=== PATIENT | female | born 1950 | race Caucasian/White ===

== ENCOUNTER 2016-10-14 21:57 | Inpatient (IN) | payer MEDICARE ==
--- NOTE | 2016-10-14 22:20 | ER Document Report ---
ED General - General Stated Complaint: DIFFICULTY BREATHING Time seen by provider: 22:05 Information source: Patient, Emergency Med Personnel TRAVEL OUTSIDE OF THE [place] IN LAST 30 DAYS: No - HPI Notes: Patient is a 66-year-old female smoker history of COPD and CHF presents to the emergency department with report of a 4 day history of difficulty breathing with minimal cough. She is not on home nebulizer treatments or oxygen and has never been intubated or admitted for previous episodes. The patient denies any chest pain or fever or productive cough. Prehospital care patient was found to have an O2 sat of 88% on room air in some respiratory distress. The patient was given DuoNeb treatments with IV Solu- Medrol and IV magnesium 2 g with CPAP and arrives alert and interactive with significant improvement. On my evaluation, the patient was immediately started up on BiPAP 12/6 with 28% FiO2 with oxygen saturation 99 and 100% and a respiratory rate of 22. Patient is alert and interactive on my questioning. 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 Past Medical History - Social History Smoking Status: Current Every Day Smoker Smoking Education Provided: Yes Frequency of alcohol use: None Drug Abuse: None Lives with: Family Family History: Reviewed & Not Pertinent Review of Systems - Review of Systems Notes: REVIEW OF SYSTEMS: CONSTITUTIONAL : Denies fever, chills, or sweats. Denies recent illness. EENT: Denies eye, ear, throat, or mouth pain or symptoms. Denies nasal or sinus congestion or discharge. Denies throat, tongue, or mouth swelling or difficulty swallowing. CARDIOVASCULAR: Denies chest pain. Denies palpitations or racing or irregular heart beat. Denies ankle edema. RESPIRATORY: Patient reports improvement in her wheezing and dyspnea currently. GASTROINTESTINAL: Denies abdominal pain or distention. Denies nausea, vomiting , or diarrhea. Denies blood in vomitus, stools, or per rectum. Denies black, tarry stools. Denies constipation. GENITOURINARY: Denies difficulty urinating, painful urination, burning, frequency, blood in urine, or discharge. FEMALE GENITOURINARY: Denies vaginal bleeding, heavy or abnormal periods, irregular periods. Denies vaginal discharge or odor. MUSCULOSKELETAL: Denies back or neck pain or stiffness. Denies joint pain or swelling. SKIN: Denies rash, lesions or sores. HEMATOLOGIC : Denies easy bruising or bleeding. LYMPHATIC: Denies swollen, enlarged glands. NEUROLOGICAL: Denies confusion or altered mental status. Denies passing out or loss of consciousness. Denies dizziness or lightheadedness. Denies headache. Denies weakness or paralysis or loss of use of either side. Denies problems with gait or speech. Denies sensory loss, numbness, or tingling. Denies seizures. PSYCHIATRIC: Denies anxiety or stress. Denies depression, suicidal ideation, or homicidal ideation. ALL OTHER SYSTEMS REVIEWED AND NEGATIVE. Dictation was performed using [employer] voice recognition software Physical Exam - Vital signs Vitals: Temp Pulse Resp BP Pulse Ox 97.9 F 110 H 28 H 112/41 L 100 10/14/16 22:15 10/14/16 22:15 10/14/16 22:15 10/14/16 22:15 10/14/16 22:15 - Notes Notes: PHYSICAL EXAMINATION: GENERAL: Well-appearing, well-nourished and in no acute distress. HEAD: Atraumatic, normocephalic. EYES: Pupils equal round and reactive to light, extraocular movements intact, conjunctiva are normal. ENT: Nares patent, oropharynx clear without exudates. Moist mucous membranes. NECK: Normal range of motion, supple without lymphadenopathy. No JVD. LUNGS: Breath sounds coarse, but no significant wheezes or rales. Note that the patient is already had nebulizer treatments and is on BiPAP on my evaluation. HEART: Regular rate and rhythm without murmurs ABDOMEN: Soft, nontender, nondistended abdomen. No guarding, no rebound. No masses appreciated. Female : deferred Musculoskeletal: Normal range of motion, no pitting or edema. No cyanosis. Negative Homans. No palpable cord. NEUROLOGICAL: Cranial nerves grossly intact. Normal speech, normal gait. Normal sensory, motor exams PSYCH: Normal mood, normal affect. SKIN: Warm, Dry, normal turgor, no rashes or lesions noted. Course - Re-evaluation Re-evalutation: 10/15/16 03:08 Chest x-ray was negative for pneumonia. There is no evidence for congestive heart failure or pneumothorax or clinical suggestion for pulmonary embolus. No significant electrolyte imbalance or anemia. Patient had good oxygen saturations on BiPAP, and she was transitioned to 2 L nasal cannula oxygen and maintained good oxygen saturations. When taken off of oxygen, her O2 sat went down to 90-92%. When the patient was ambulatory however, her O2 sat went to 87% and her pulse rate went up to 130, still in a paced rhythm. When the patient was placed back in bed at rest her O2 sat improved and she was placed back on oxygen. On 2 L nasal cannula oxygen, her O2 sats stabilized in the mid 90s and her blood gas showed no hypercarbia. Discussion was undertaken with Dr. Correa, and he agreed to admit the patient for further evaluation and management. I discussed with the patient and her family and they were in agreement with admission. Patient was warned that she most likely would need to go home with a home nebulizer machine and may need consisted home oxygen therapy given the progression of her COPD. 10/15/16 03:11 - Vital Signs Vital signs: Temp Pulse Resp BP Pulse Ox 97.9 F 110 H 34 H 100/61 93 10/14/16 22:15 10/14/16 22:15 10/14/16 22:15 10/15/16 01:00 10/15/16 01:01 - Laboratory Result Diagrams: 10/14/16 22:25 10/14/16 22:25 Laboratory results interpreted by me: 10/14/16 10/14/16 10/15/16 22:25 22:25 02:10 WBC 11.0 H Seg Neutrophils % 79.2 H Absolute Neutrophils 8.7 H ABG pO2 79.7 L ABG Total CO2 26.1 H Glucose 125 H Magnesium 2.7 H - EKG Interpretation by Me Additional EKG results interpreted by me: 10/14/16 23:11 EKG as interpreted by me showed atrial sensed ventricular paced rhythm rate 103. There is bilateral atrial abnormalities consistent with COPD. There is a nonspecific secondary interventricular conduction delay consistent with pacing. There is no gross evidence for acute CO or ischemia identified. There is LVH noted. There is no old EKG available for comparison. Critical Care Note - Critical Care Note Total time excluding time spent on procedures (mins): 51 Discharge - Discharge Clinical Impression: COPD with acute exacerbation, Hypoxia Condition: Stable Disposition: ADMITTED INPATIENT Admitting Provider: [facility] Admitted: Telemetry Referrals: LINETTE FELIPE MD [Primary Care Provider] - Follow up as needed
[2016-10-14 22:35] LABS: ABSOLUTE EOSINOPHILS # (AUTO) 0.1 10^3/uL (0.0-0.6); ABSOLUTE LYMPHOCYTES (AUTO) 1.5 10^3/uL (0.5-4.7); ABSOLUTE MONOCYTES (AUTO) 0.7 10^3/uL (0.1-1.4); ABSOLUTE NEUT (AUTO) 8.7 10^3/uL (1.7-8.2); BASOPHILS % (AUTO) 0.2 % (0-2); EOSINOPHILS % (AUTO) 0.5 % (0-6); HEMATOCRIT 43.6 % (36.0-47.0); HEMOGLOBIN 14.8 g/dL (12.0-15.5); HGB HCT DIFFERENCE 0.8; LYMPHOCYTES % (AUTO) 13.7 % (13-45); MEAN CORPUSCULAR HEMOGLOBIN 30.3 pg (27.0-33.4); MEAN CORPUSCULAR HGB CONC 33.9 g/dL (32.0-36.0); MEAN CORPUSCULAR VOLUME 89 fl (80-97); MONOCYTES % (AUTO) 6.4 % (3-13); RED BLOOD COUNT 4.88 10^6/uL (3.72-5.28); RED CELL DISTRIBUTION WIDTH 12.5 % (11.5-14.0); SEGMENTED NEUTROPHILS % (AUTO) 79.2 % (42-78)
[2016-10-14 22:47] LABS: ALANINE AMINOTRANSFERASE 24 U/L (9-52); ALBUMIN 4.6 g/dL (3.5-5.0); ALKALINE PHOSPHATASE 88 U/L (38-126); ANION GAP 13 (5-19); ASPARTATE AMINO TRANSFERASE 24 U/L (14-36); BILIRUBIN,DIRECT 0.1 mg/dL (0.0-0.4); BILIRUBIN,TOTAL 0.5 mg/dL (0.2-1.3); BLOOD UREA NITROGEN 17 mg/dL (7-20); CALCIUM 10.1 mg/dL (8.4-10.2); CARBON DIOXIDE 25 mmol/L (22-30); CHLORIDE 102 mmol/L (98-107); CREATININE RESULT 0.77 mg/dL (0.52-1.25); GLUCOSE 125 mg/dL (75-110); MAGNESIUM 2.7 mg/dL (1.6-2.3); POTASSIUM 3.8 mmol/L (3.6-5.0); SODIUM 140.1 mmol/L (137-145); TOTAL PROTEIN 7.8 g/dL (6.3-8.2)
[2016-10-14 23:01] LABS: TROPONIN I < 0.012 ng/mL
[2016-10-15] MEDS ORDERED: IPRATROPIUM/ALBUTEROL 0.5-2.5 MG/3 ML AMPUL NEB ONE (01:25)
[2016-10-15 02:23] LABS: ARTERIAL BLOOD BASE EXCESS -0.1 mmol/L; ARTERIAL BLOOD O2 SATURATION 95.7 % (94-98)
[2016-10-15] MEDS ORDERED: IPRATROPIUM/ALBUTEROL 0.5-2.5 MG/3 ML AMPUL NEB PRN ×2 (06:22→09:43)
[2016-10-15] MEDS ORDERED: METHYLPREDNISOLONE INJ 125 MG/2 ML SDV IV SCH (06:30)
[2016-10-15] MEDS ORDERED: ALBUTEROL SULFATE HFA (90 MCG/PUFF) 200 PUFF/8.5 GM MDI IH PRN (10:30)
[2016-10-15] MEDS ORDERED: FUROSEMIDE 20 MG TABLET PO ONE (11:00)
[2016-10-15] MEDS ORDERED: ASPIRIN 81 MG TABLET, ENT COATED PO ONE (11:30)
[2016-10-15] MEDS: METHYLPREDNISOLONE INJ 125 MG/2 ML SDV IV SCH ×2 (13:11→21:25)
[2016-10-15] MEDS: GABAPENTIN 300 MG CAPSULE PO SCH ×2 (13:11→21:26)
[2016-10-15] MEDS ORDERED: NORMAL SALINE 1000 ML 1,000 ML IV PRN (14:34)
[2016-10-15] MEDS: HYDROCODONE/ACETAMINOPHEN 5-325 MG TABLET PO PRN ×2 (16:04→21:55)
--- NOTE | 2016-10-15 17:44 | PDOC H&P ---
History of Present Illness Admission Date/PCP: 10/15/16 04:37 LINETTE FELIPE MD History of Present Illness: ZAY KNIGHT is a 66 year old female, a lifelong smoker, with very severe COPD, she could emergency room last night because of shortness of breath. In the emergency room she was evaluated the blood gas showed relative hypoxemia, she was treated in the emergency room with bronchodilators, steroid despite all these treatment patient remained very symptomatic and hospital admission was advised. I saw patient on the floor today she is cachectic and on auscultation of the chest that was global diminished air entry in both lung niño suggesting very severe disease, CT chest was ordered with contrast to assess the lung parenchyma. Patient prognosis is poor as long as she continues to smoke cigarettes, she was counseled multiple times on the need for complete smoking cessation. She is still smoking at one point but she went back again smoking, she knows the consequences of her actions will lead to . Past Medical History Cardiac Medical History: Reports: Congestive Heart Failure Pulmonary Medical History: Reports: Chronic Obstructive Pulmonary Disease (COPD) Psychiatric Medical History: Denies: Depression Social History Lives with: Family Smoking Status: Current Every Day Smoker Frequency of Alcohol Use: None Hx Recreational Drug Use: No Drugs: None Hx Prescription Drug Abuse: No Family History Family History: Reviewed & Not Pertinent Parental Family History Reviewed: Yes Children Family History Reviewed: Yes Sibling(s) Family History Reviewed.: Yes Medication/Allergy Home Medications: Albuterol Sulfate [Ventolin Hfa] 2 puff IH Q4HP PRN 10/15/16 Aspirin [Aspirin EC] 81 mg PO DAILY 10/15/16 Fluticasone/Salmeterol [Advair 250-50 Diskus 28 dose] 1 inh IH Q12 10/15/16 Furosemide [Lasix] 20 mg PO DAILY 10/15/16 Gabapentin [Neurontin] 600 mg PO TID 10/15/16 Magnesium Oxide [Magnesium] 800 mg PO DAILY 10/15/16 Multivits-Min/Iron/FA/Lutein [Centrum Silver Women Tablet] 1 each PO DAILY 10/15 Simvastatin [Zocor 80 mg Tablet] 80 mg PO QHS 10/15/16 Allergies/Adverse Reactions: No Known Allergies Allergy (Unverified 10/15/16 21:48) Review of Systems Constitutional: ABSENT: chills, fever(s), headache(s), weight gain, weight loss Eyes: ABSENT: visual disturbances Ears: ABSENT: hearing changes Cardiovascular: PRESENT: dyspnea on exertion Respiratory: PRESENT: cough, dyspnea Gastrointestinal: ABSENT: abdominal pain, constipation, diarrhea, hematemesis, hematochezia, nausea, vomiting Genitourinary: ABSENT: dysuria, hematuria Musculoskeletal: ABSENT: joint swelling Integumentary: ABSENT: rash, wounds Neurological: ABSENT: abnormal gait, abnormal speech, confusion, dizziness, focal weakness, syncope Psychiatric: ABSENT: anxiety, depression, homidical ideation, suicidal ideation Endocrine: ABSENT: cold intolerance, heat intolerance, menstrual abnormalities, polydipsia, polyuria Hematologic/Lymphatic: ABSENT: easy bleeding, easy bruising, lymphadenopathy Physical Exam Vital Signs: Temp Pulse Resp BP Pulse Ox 97.9 F 107 H 18 104/63 94 10/15/16 16:00 10/15/16 16:00 10/15/16 16:00 10/15/16 16:00 10/15/16 16:00 Intake & Output 10/14/16 10/15/16 10/16/16 06:59 06:59 06:59 Intake Total 5 Balance 5 General appearance: PRESENT: other - Patient looks cachectic, chronically ill looking in extremely poor health Head exam: PRESENT: atraumatic, normocephalic Ear exam: PRESENT: normal external ear exam Mouth exam: PRESENT: moist, tongue midline Neck exam: PRESENT: full ROM. ABSENT: carotid bruit, JVD, lymphadenopathy, thyromegaly Respiratory exam: PRESENT: decreased breath sounds Cardiovascular exam: PRESENT: irregular rhythm, RRR, +S1, +S2, tachycardia Pulses: PRESENT: normal dorsalis pedis pul, +2 pedal pulses bilateral Vascular exam: PRESENT: normal capillary refill GI/Abdominal exam: PRESENT: soft Rectal exam: PRESENT: deferred Neurological exam: PRESENT: alert, awake, oriented to person, oriented to place , oriented to time, oriented to situation, CN II-XII grossly intact Psychiatric exam: PRESENT: appropriate affect, normal mood Skin exam: PRESENT: dry, intact, warm. ABSENT: cyanosis, rash Results Impressions: Chest X-Ray 10/14/16 22:17 IMPRESSION: Obstructive lung disease. No acute consolidations are identified. Other findings as noted above Assessment & Plan - Diagnosis (1) Chronic obstructive pulmonary disease with acute exacerbation Is this a current diagnosis for this admission?: YesPlan: Patient is admitted to the hospital and she is started on IV Solu-Medrol, bronchodilators,
[2016-10-15] MEDS: FLUTICASONE/SALMETEROL DISKUS 250-50 MCG/DOSE IH SCH (21:24)
[2016-10-15] MEDS: SIMVASTATIN 40 MG TABLET PO SCH (21:24)
[2016-10-15] MEDS ORDERED: (PENDING PHARMACY ID) (Simvastatin [Zocor 80 Mg Tablet] 80 MG) PO SCH (22:00)
--- NOTE | 2016-10-15 22:09 | EKG REPORT ---
SEVERITY:- ABNORMAL ECG - ATRIAL-SENSED VENTRICULAR-PACED COMPLEXES BIATRIAL ABNORMALITIES NONSPECIFIC INTRAVENTRICULAR CONDUCTION DELAY CONSIDER LEFT VENTRICULAR HYPERTROPHY : Confirmed by: Karie Marx MD 15-Oct-2016 22:08:56
[2016-10-16] MEDS: METHYLPREDNISOLONE INJ 125 MG/2 ML SDV IV SCH ×3 (05:38→21:55)
[2016-10-16] MEDS: GABAPENTIN 300 MG CAPSULE PO SCH ×3 (05:43→21:55)
[2016-10-16] MEDS: HYDROCODONE/ACETAMINOPHEN 5-325 MG TABLET PO PRN ×3 (08:19→22:24)
[2016-10-16] MEDS: ASPIRIN 81 MG TABLET, ENT COATED PO SCH (09:13)
[2016-10-16] MEDS: MULTIVITAMIN TABLET PO SCH (09:13)
[2016-10-16] MEDS: MAGNESIUM OXIDE 400 MG TABLET PO SCH (09:13)
[2016-10-16] MEDS: FUROSEMIDE 20 MG TABLET PO SCH (09:13)
[2016-10-16] MEDS: FLUTICASONE/SALMETEROL DISKUS 250-50 MCG/DOSE IH SCH ×2 (09:13→21:55)
[2016-10-16] MEDS ORDERED: (PENDING PHARMACY ID) (Multivits-Min/Iron/Fa/Lutein [Centrum Silver Women Tablet] 1 EACH) PO SCH (10:00)
--- NOTE | 2016-10-16 17:59 | PDOC PROGRESS REPORT ---
Subjective Progress Note for:: 10/16/16 Subjective:: She was admitted yesterday because of acute COPD exacerbation, CT chest was done he shows severe emphysema Physical Exam Vital Signs: Temp Pulse Resp BP Pulse Ox 98 F 87 19 117/75 96 10/16/16 16:00 10/16/16 16:00 10/16/16 16:00 10/16/16 16:00 10/16/16 16:00 Intake & Output 10/15/16 10/16/16 10/17/16 06:59 06:59 06:59 Intake Total 5 2764 1347 Output Total 700 700 Balance 5 2 143 General appearance: PRESENT: no acute distress Eye exam: PRESENT: PERRLA Respiratory exam: PRESENT: decreased breath sounds Cardiovascular exam: PRESENT: +S1, +S2 Neurological exam: PRESENT: alert Results Impressions: Chest X-Ray 10/14/16 22:17 IMPRESSION: Obstructive lung disease. No acute consolidations are identified. Other findings as noted above Chest CT 10/15/16 00:00 IMPRESSION: Obstructive lung disease with extensive emphysematous changes. No acute changes. Other findings as noted above. Assessment & Plan - Diagnosis (1) Chronic obstructive pulmonary disease with acute exacerbation Is this a current diagnosis for this admission?: Yes (2) Protein-calorie undernutrition Is this a current diagnosis for this admission?: YesPlan: The etiology of the protein/calorie malnutrition is due to combination of inadequate intake, chronic obstructive lung disease
[2016-10-16] MEDS: SIMVASTATIN 40 MG TABLET PO SCH (21:55)
[2016-10-17] MEDS: GABAPENTIN 300 MG CAPSULE PO SCH ×2 (06:06→14:56)
[2016-10-17] MEDS: METHYLPREDNISOLONE INJ 125 MG/2 ML SDV IV SCH ×2 (06:06→14:50)
[2016-10-17] MEDS: HYDROCODONE/ACETAMINOPHEN 5-325 MG TABLET PO PRN ×2 (08:21→14:55)
[2016-10-17] MEDS: FLUTICASONE/SALMETEROL DISKUS 250-50 MCG/DOSE IH SCH (09:06)
[2016-10-17] MEDS: MULTIVITAMIN TABLET PO SCH (09:06)
[2016-10-17] MEDS: ASPIRIN 81 MG TABLET, ENT COATED PO SCH (09:06)
[2016-10-17] MEDS: MAGNESIUM OXIDE 400 MG TABLET PO SCH (09:06)
[2016-10-17] MEDS: FUROSEMIDE 20 MG TABLET PO SCH (09:06)
[2016-10-17 17:44] VITALS: BP 117/75
--- NOTE | 2016-10-17 18:05 | PDOC DISCHARGE SUMMARY ---
General - Admit/Disc Date/PCP Admission Date/Primary Care Provider: 10/15/16 04:37 LINETTE FELIPE MD Discharge Date: 10/17/16 - Discharge Diagnosis (1) Chronic obstructive pulmonary disease with acute exacerbation Is this a current diagnosis for this admission?: Yes (2) Protein-calorie undernutrition Is this a current diagnosis for this admission?: Yes (3) Nocturnal hypoxemia due to emphysema Is this a current diagnosis for this admission?: Yes - Additional Information Discharge Activity: Activity As Tolerated Home Medications: Albuterol Sulfate [Ventolin Hfa] 2 puff IH Q4HP PRN 10/15/16 Aspirin [Aspirin EC] 81 mg PO DAILY 10/15/16 Fluticasone/Salmeterol [Advair 250-50 Diskus 28 dose] 1 inh IH Q12 10/15/16 Furosemide [Lasix] 20 mg PO DAILY 10/15/16 Gabapentin [Neurontin] 600 mg PO TID 10/15/16 Magnesium Oxide [Magnesium] 800 mg PO DAILY 10/15/16 Multivits-Min/Iron/FA/Lutein [Centrum Silver Women Tablet] 1 each PO DAILY 10/15 Simvastatin [Zocor 80 mg Tablet] 80 mg PO QHS 10/15/16 Ipratropium/Albuterol Sulfate [Duoneb 3 ml Ampul] 3 ml NEB NOW #120 vial.neb 01/26 Nebulizer [Nebulizer Machine] 1 each ASDIR PRN #1 kit 10/17/16 Prednisone 20 mg PO DAILY #0 tablet 10/17/16 History of Present Illness History of Present Illness: ZAY KNIGHT is a 66 year old female, a lifelong smoker, with very severe COPD, she could emergency room last night because of shortness of breath. In the emergency room she was evaluated the blood gas showed relative hypoxemia, she was treated in the emergency room with bronchodilators, steroid despite all these treatment patient remained very symptomatic and hospital admission was advised. I saw patient on the floor today she is cachectic and on auscultation of the chest that was global diminished air entry in both lung niño suggesting very severe disease, CT chest was ordered with contrast to assess the lung parenchyma. Patient prognosis is poor as long as she continues to smoke cigarettes, she was counseled multiple times on the need for complete smoking cessation. She is still smoking at one point but she went back again smoking, she knows the consequences of her actions will lead to . Hospital Course Hospital Course: Patient was admitted because of acute COPD exacerbation, she was treated with intravenous Solu-Medrol, bronchodilators, and oxygen. On auscultation of the chest that was diminished air entry on both lung niño and she required oxygen therapy. There was associated hypoxemia due to COPD the plan is to discharge her home today on home oxygen. She was again counseled for prolonged. period of the need for complete smoking cessation, the only chance of survival for this patient is to stop smoking and this was particularly emphasized to her. She is severely underweight, she was evaluated for this underweight problems in the past outpatient this is probably related to the COPD, tobacco abuse Physical Exam Vital Signs: Temp Pulse Resp BP Pulse Ox 98.2 F 68 16 117/75 97 10/17/16 17:43 10/17/16 17:43 10/17/16 17:43 10/17/16 17:43 10/17/16 17:43 Intake & Output 10/16/16 10/17/16 10/18/16 06:59 06:59 06:59 Intake Total 2764 1897 Output Total 700 1250 Balance 2064 647 General appearance: PRESENT: no acute distress, well-developed, well-nourished Head exam: PRESENT: atraumatic, normocephalic Eye exam: PRESENT: conjunctiva pink, EOMI, PERRLA Ear exam: PRESENT: normal external ear exam Mouth exam: PRESENT: moist, tongue midline Neck exam: PRESENT: full ROM Respiratory exam: PRESENT: decreased breath sounds Cardiovascular exam: PRESENT: RRR, +S1, +S2 Pulses: PRESENT: normal dorsalis pedis pul, +2 pedal pulses bilateral Vascular exam: PRESENT: normal capillary refill GI/Abdominal exam: PRESENT: normal bowel sounds, soft Rectal exam: PRESENT: deferred Neurological exam: PRESENT: alert, awake, oriented to person, oriented to place , oriented to time, oriented to situation, CN II-XII grossly intact Psychiatric exam: PRESENT: appropriate affect, normal mood Skin exam: PRESENT: dry, intact, warm Results Impressions: Chest X-Ray 10/14/16 22:17 IMPRESSION: Obstructive lung disease. No acute consolidations are identified. Other findings as noted above Chest CT 10/15/16 00:00 IMPRESSION: Obstructive lung disease with extensive emphysematous changes. No acute changes. Other findings as noted above. Plan Discharge Plan: She is discharged home on home oxygen
== END 2016-10-17 18:10 | disposition home or self-care (01) | DRG 191 ==
LOC: ER 21:57 → EH 10-15 03:20 → UNDOADMIN 10-15 03:20 → EH 10-15 04:26 → 5 10-15 04:26 → EH 10-15 04:37 → 5 10-15 04:37
PROVIDERS: ADMIT Internal Medicine; ATTEND Internal Medicine
DX: J44.1 Chronic obstructive pulmonary disease with (acute) exacerbation (principal); I50.22 Chronic systolic (congestive) heart failure; E46 Unspecified protein-calorie malnutrition; Z68.1 Body mass index [BMI] 19.9 or less, adult; Z79.899 Other long term (current) drug therapy; F17.200 Nicotine dependence, unspecified, uncomplicated
CPT/HCPCS: 36415; 71010; 71260; 80053; 82803; 83735; 83880; 84484; 85025; 93005; 93010; 94640; 94660; 99291; J2930; J3490; J7620

== ENCOUNTER → 2017-01-29 | Outpatient (CLI) | payer MEDICARE ==
[2017-01-29 17:17] LABS: ALANINE AMINOTRANSFERASE 30 U/L (9-52); ALBUMIN 4.3 g/dL (3.5-5.0); ALKALINE PHOSPHATASE 87 U/L (38-126); ANION GAP 9 (5-19); ASPARTATE AMINO TRANSFERASE 24 U/L (14-36); BILIRUBIN,DIRECT 0.3 mg/dL (0.0-0.4); BILIRUBIN,TOTAL 0.4 mg/dL (0.2-1.3); BLOOD UREA NITROGEN 12 mg/dL (7-20); CALCIUM 9.4 mg/dL (8.4-10.2); CARBON DIOXIDE 31 mmol/L (22-30); CHLORIDE 99 mmol/L (98-107); CHOLESTEROL 160.39 mg/dL (0-200); CREATININE RESULT 0.76 mg/dL (0.52-1.25); Direct HDL 50 mg/dL (>40); GLUCOSE 110 mg/dL (75-110); POTASSIUM 4.4 mmol/L (3.6-5.0); TRIGLYCERIDES 130 mg/dL (<150)
[2017-01-29 17:28] LABS: DIRECT LDL 83 mg/dL (<100)
== END ==
LOC: OD 15:12
PROVIDERS: ATTEND Internal Medicine Cardiovascular Disease
DX: R06.02 Shortness of breath (principal); I10 Essential (primary) hypertension; E11.9 Type 2 diabetes mellitus without complications; E78.00 Pure hypercholesterolemia, unspecified; Z79.899 Other long term (current) drug therapy
CPT/HCPCS: 36415; 80048; 80061; 80076; 83036; 83880; 84443

== ENCOUNTER 2017-11-20 15:58 | Emergency (ER) | payer MEDICARE ==
[2017-11-20] MEDS ORDERED: ASPIRIN 81 MG TABLET, CHEWABLE PO ONE (16:04)
[2017-11-20] MEDS ORDERED: NORMAL SALINE 1000 ML 1,000 ML IV ONE (16:06)
[2017-11-20 16:30] LABS: ABSOLUTE MONOCYTES (AUTO) 0.7 10^3/uL (0.1-1.4); ABSOLUTE NEUT (AUTO) 6.9 10^3/uL (1.7-8.2); BASOPHILS % (AUTO) 0.4 % (0-2); EOSINOPHILS % (AUTO) 0.3 % (0-6); HEMATOCRIT 37.1 % (36.0-47.0); HEMOGLOBIN 12.4 g/dL (12.0-15.5); LYMPHOCYTES % (AUTO) 11.7 % (13-45); MEAN CORPUSCULAR HEMOGLOBIN 30.1 pg (27.0-33.4); MEAN CORPUSCULAR HGB CONC 33.5 g/dL (32.0-36.0); MEAN CORPUSCULAR VOLUME 90 fl (80-97); MONOCYTES % (AUTO) 8.1 % (3-13); PLATELET COUNT 260 10^3/uL (150-450); RED BLOOD COUNT 4.13 10^6/uL (3.72-5.28); RED CELL DISTRIBUTION WIDTH 12.9 % (11.5-14.0); SEGMENTED NEUTROPHILS % (AUTO) 79.5 % (42-78); TOTAL CELLS COUNTED % (AUTO) 100 %; WHITE BLOOD COUNT 8.7 10^3/uL (4.0-10.5)
[2017-11-20 16:42] LABS: PROTHROMBIN TIME 12.6 SEC (11.4-15.4)
[2017-11-20 16:54] LABS: ALANINE AMINOTRANSFERASE 21 U/L (9-52); ALBUMIN 4.2 g/dL (3.5-5.0); ALKALINE PHOSPHATASE 78 U/L (38-126); ANION GAP 9 (5-19); ASPARTATE AMINO TRANSFERASE 31 U/L (14-36); BILIRUBIN,DIRECT 0.3 mg/dL (0.0-0.4); BILIRUBIN,TOTAL 0.3 mg/dL (0.2-1.3); BLOOD UREA NITROGEN 13 mg/dL (7-20); CALCIUM 9.9 mg/dL (8.4-10.2); CARBON DIOXIDE 35 mmol/L (22-30); CHLORIDE 96 mmol/L (98-107); CREATINE KINASE 78 U/L (30-135); GLUCOSE 113 mg/dL (75-110); LIPASE 56.4 U/L (23-300); SODIUM 139.8 mmol/L (137-145); TOTAL PROTEIN 7.3 g/dL (6.3-8.2)
--- NOTE | 2017-11-20 17:01 | RADIOLOGY REPORT (SQ) ---
EXAM DESCRIPTION: CHEST SINGLE VIEW COMPLETED DATE/TIME: 11/20/2017 4:46 pm REASON FOR STUDY: Indication for study is not provided. COMPARISON: CT chest 2017. Radiographs 2017. NUMBER OF VIEWS: One view. TECHNIQUE: Single frontal radiographic view of the chest acquired. LIMITATIONS: External limiting monitor lead artifacts. FINDINGS: LUNGS AND PLEURA: Hyperinflated, COPD. Chronic appearance without acute infiltrate or leticia picious opacities suggested. MEDIASTINUM AND HILAR STRUCTURES: No masses. Contour normal. HEART AND VASCULAR STRUCTURES: Allowing for degree of inflation, cardiomegaly. No evidence of conges tive failure. BONES: No gross fracture or bone lesion. HARDWARE: Left transvenous pacer with grossly intact leads. OTHER: No other significant finding. IMPRESSION: COPD. Stable chest. No acute cardiopulmonary disease appreciated. TECHNICAL DOCUMENTATION: JOB ID: [id number] [employer]- All Rights Reserved Reading location - IP/workstation name: Unknown
[2017-11-20 17:03] LABS: CREATINE KINASE MB 5.26 ng/mL (<4.55)
[2017-11-20 17:08] LABS: TROPONIN I 0.714 ng/mL
[2017-11-20 17:17] LABS: FREE T4 (FREE THYROXINE) 1.48 ng/dL (0.78-2.19)
[2017-11-20 17:31] LABS: THYROID STIMULATING HORMONE 1.63 uIU/mL (0.47-4.68)
[2017-11-20] MEDS ORDERED: ENOXAPARIN SODIUM INJ 60 MG/0.6 ML DISP.SYRIN SUBCUT SCH (18:00)
--- NOTE | 2017-11-20 18:47 | EKG REPORT ---
SEVERITY:- ABNORMAL ECG - ATRIAL-SENSED VENTRICULAR-PACED RHYTHM : Confirmed by: Jose Ramon Chaney MD 20-Nov-2017 18:46:53
--- NOTE | 2017-11-20 18:48 | EKG REPORT ---
SEVERITY:- ABNORMAL ECG - SINUS TACHYCARDIA LEFT BUNDLE BRANCH BLOCK : Confirmed by: Jose Ramon Chaney MD 20-Nov-2017 18:47:21
--- NOTE | 2017-11-20 20:00 | ER Document Report ---
ED Cardiac - General Chief Complaint: Chest Pain Stated Complaint: CHEST PAIN Time Seen by Provider: 11/20/17 16:04 TRAVEL OUTSIDE OF THE [place] IN LAST 30 DAYS: No - HPI Patient complains to provider of: Chest pain Notes: Patient coming in for evaluation chest pain and AICD firing. Patient states that chest pain started just prior to her AICD firing. Patient states that AICD has fired approximately 19 times a day. Patient upon arrival is slightly tachycardic. Patient resting comfortably upon my evaluation with no complaints of chest pain. Patient denies any changes in her medications. Patient states that her pacemaker was placed in 2008 she is unaware of the reason why the pacemaker was placed. Denies any recent travel denies any fevers chills nausea vomiting. - Related Data Allergies/Adverse Reactions: codeine Allergy (Verified 11/20/17 16:24) Past Medical History - Social History Smoking Status: Unknown if Ever Smoked Family History: Reviewed & Not Pertinent Patient has suicidal ideation: No Patient has homicidal ideation: No - Past Medical History Cardiac Medical History: Reports: Hx Congestive Heart Failure Pulmonary Medical History: Reports: Hx COPD Renal/ Medical History: Denies: Hx Peritoneal Dialysis Psychiatric Medical History: Reports: Hx Depression Past Surgical History: Reports: Hx Cardiac Surgery - ICD - Immunizations Hx Diphtheria, Pertussis, Tetanus Vaccination: Yes Hx Pneumococcal Vaccination: 07/13/12 Review of Systems - Review of Systems Constitutional: No symptoms reported EENT: No symptoms reported Cardiovascular: Chest pain Respiratory: No symptoms reported Gastrointestinal: No symptoms reported Genitourinary: No symptoms reported Female Genitourinary: No symptoms reported Musculoskeletal: No symptoms reported Skin: No symptoms reported Hematologic/Lymphatic: No symptoms reported Neurological/Psychological: No symptoms reported -: Yes All other systems reviewed and negative Physical Exam - Vital signs Vitals: Pulse Ox 97 11/20/17 16:01 Interpretation: Tachycardic - General General appearance: Appears well, Alert - HEENT Head: Normocephalic, Atraumatic Eyes: Normal Pupils: PERRL - Respiratory Respiratory status: No respiratory distress Chest status: Nontender Breath sounds: Normal Chest palpation: Normal Notes: Pacemaker in the left upper chest - Cardiovascular Rhythm: Regular, Tachycardia Heart sounds: Normal auscultation Murmur: No - Abdominal Inspection: Normal Distension: No distension Bowel sounds: Normal Tenderness: Nontender Organomegaly: No organomegaly - Back Back: Normal, Nontender - Extremities General upper extremity: Normal inspection, Nontender, Normal color, Normal ROM , Normal temperature General lower extremity: Normal inspection, Nontender, Normal color, Normal ROM , Normal temperature, Normal weight bearing. No: Colleen's sign - Neurological Neuro grossly intact: Yes Cognition: Normal Orientation: AAOx4 [place] Coma Scale Eye Opening: Spontaneous Rylie Coma Scale Verbal: Oriented Rylie Coma Scale Motor: Obeys Commands [place] Coma Scale Total: 15 Speech: Normal Motor strength normal: LUE, RUE, LLE, RLE Sensory: Normal - Psychological Associated symptoms: Normal affect, Normal mood - Skin Skin Temperature: Warm Skin Moisture: Dry Skin Color: Normal Course - Re-evaluation Re-evalutation: 11/20/17 20:00 Patient coming in today for evaluation of firing of her AICD. Patient states she was having some chest pain prior to firing of AICD states he is fired approximately 20 times. Upon initial evaluation patient was tachycardic like to be and more or less an SVT however with just gentle fluids patient's heart rate has improved to normal sinus rhythm. Patient remained chest pain-free during her stay here in ER. We did interrogate the patient's pacemaker which did show that the AICD did administer his treatment approximately 11-12 times all the times were marked for VT. Looks like patient has been nonsustained VT. I did review the patient's medications that she brought here does not show any antiarrhythmics. Otherwise patient is a very poor historian. Patient has been resting comfortably I did discuss case with the cardiology team at [facility] Dr Calderon This is a patient in transfer is that we [place] [facility] with your physiology and patient does have an elevation in her troponin. At this time my suspicion is more likely due to the multiple firing of her AICD and not cardiac ischemia however I am concerned as the patient states she does have pain priorTo the firing of her AICD. We will give the patient a dose of Lovenox to need to trend her troponins otherwise patient stable for transfer - Vital Signs Vital signs: Temp Pulse Resp BP Pulse Ox 98.1 F 20 100/59 L 100 11/20/17 20:46 11/20/17 20:45 11/20/17 20:46 11/20/17 20:46 - Laboratory Result Diagrams: 11/20/17 16:15 11/20/17 16:15 Laboratory results interpreted by me: 11/20/17 11/20/17 11/20/17 16:15 16:15 16:15 Seg Neutrophils % 79.5 H Lymphocytes % 11.7 L Chloride 96 L Carbon Dioxide 35 H Glucose 113 H CK-MB (CK-2) 5.26 H Critical Care Note - Critical Care Note Total time excluding time spent on procedures (mins): 50 Comments: Multiple evaluation patient with multiple times of AICD firing on the field confirmed with pacemaker interrogation slightly elevation in troponin. Time spent also discussed with transferring facility. Discharge - Discharge Clinical Impression: AICD firing, Nonsustained ventricular tachycardia, COPD, Elevated troponin Condition: Good Disposition: [facility] Admitting Provider: [facility] Referrals: LINETTE FELIPE MD [Primary Care Provider] - Follow up as needed
[2017-11-20 20:56] VITALS: BP 100/59
== END 2017-11-20 21:15 | disposition short-term general hospital (02) ==
LOC: ER 15:58
DX: I47.2 Ventricular tachycardia (principal); R07.9 Chest pain, unspecified; Z95.810 Presence of automatic (implantable) cardiac defibrillator; R74.8 Abnormal levels of other serum enzymes; J44.9 Chronic obstructive pulmonary disease, unspecified
CPT/HCPCS: 93005; 99291; 96372; 36415; 84439; 82553; 82550; 83690; 84443; 85025; 85610; 80053; 84484; 71045; 93010; J1650

== ENCOUNTER 2018-07-13 22:00 | Emergency (ER) | payer MEDICARE ==
[2018-07-13] MEDS ORDERED: ALBUTEROL SULFATE 0.083% NEB 2.5 MG/3 ML AMPUL NEB ONE (22:17)
[2018-07-13 22:40] LABS: VENOUS BLOOD BASE EXCESS 2.7 mmol/L; VENOUS BLOOD HCO3 30.7 mmol/L (20-32); VENOUS BLOOD PH 7.3 (7.30-7.42)
--- NOTE | 2018-07-13 22:47 | ER Document Report ---
ED General - General Stated Complaint: DIFFICULTY BREATHING Time Seen by Provider: 07/13/18 22:04 Notes: Patient is a 67-year-old female presents with complaint of difficulty breathing. Patient on a month history of difficulty breathing tonight. She states she is otherwise been doing well the last couple days. She has a history of COPD. She still smokes. She wears between 1-2 L of oxygen per nasal cannula at home. Paramedics said she was in respiratory distress and all wheezing. They gave her Solu-Medrol as well as 2 DuoNeb treatments. This helped significantly. She denies any fevers at home. No vomiting. No chest pain. She has been intubated on a ventilator in the past. Her primary care doctor is Dr. Felipe. She says she is feeling improvement after receiving the breathing treatments. TRAVEL OUTSIDE OF THE [place] IN LAST 30 DAYS: No - Related Data Allergies/Adverse Reactions: codeine Allergy (Verified 11/20/17 16:24) Past Medical History - Social History Smoking Status: Current Every Day Smoker Frequency of alcohol use: None Drug Abuse: None Family History: Reviewed & Not Pertinent - Past Medical History Cardiac Medical History: Reports: Hx Congestive Heart Failure Pulmonary Medical History: Reports: Hx COPD Renal/ Medical History: Denies: Hx Peritoneal Dialysis Psychiatric Medical History: Reports: Hx Depression Past Surgical History: Reports: Hx Cardiac Surgery - ICD - Immunizations Hx Diphtheria, Pertussis, Tetanus Vaccination: Yes Hx Pneumococcal Vaccination: 07/13/12 Review of Systems - Review of Systems Notes: My Normal Review Basic REVIEW OF SYSTEMS: CONSTITUTIONAL : Denies fever, chills, or sweats. Denies recent illness. EENT: Denies eye, ear, throat, or mouth pain or symptoms. Denies nasal or sinus congestion. CARDIOVASCULAR: Denies chest pain. RESPIRATORY: Difficulty breathing GASTROINTESTINAL: Denies abdominal pain. Denies nausea, vomiting, or diarrhea. MUSCULOSKELETAL: Denies neck or back pain or joint pain or swelling. SKIN: Denies rash or skin lesions. NEUROLOGICAL: Denies altered mental status or loss of consciousness. Denies headache. Denies weakness or paralysis or loss of use of either side. Denies problems with gait or speech. Denies sensory or motor loss. ALL OTHER SYSTEMS REVIEWED AND NEGATIVE. Physical Exam - Vital signs Vitals: Temp Resp Pulse Ox 97.5 F 13 100 07/13/18 22:23 07/13/18 22:23 07/13/18 22:23 - Notes Notes: General Appearance: Well nourished, alert, cooperative, no acute distress, no obvious discomfort. Mucousy cough on exam. Vitals: reviewed, See vital signs table. Head: no swelling or tenderness to the head Eyes: PERRL, EOMI, Conjuctiva clear Mouth: No decreasd moisture Throat: No tonsillar inflammation, No airway obstruction, No lymphadenopathy Neck: Supple, no neck tenderness, No thyromegaly Lungs: No wheezing, No rales, scattered rhonci, No accessory muscle use, fair air exchange bilaterally. Heart: Normal rate, Regular rythm, No murmur, no rub Abdomen: Normal BS, soft, No rigidity, No abdominal tenderness, No guarding, no rebound, no abdominal masses, no organomegaly Extremities: strength 5/5 in all extremities, good pulses in all extremities, no swelling or tenderness in the extremities, no edema. Skin: warm, dry, appropriate color, no rash. Very dry skin on lower extremities which patient says is chronic. Neuro: speech clear, oriented x 3, normal affect, responds appropriately to questions. Course - Re-evaluation Re-evalutation: 07/13/18 23:54 On reevaluation patient is feeling much improved. She says she feels back to her baseline. She just finished her last breathing treatment. I will reevaluate her in approximately a hour to make sure that her breathing is staying normalized. She is in no distress. Her pulse ox is 98% on her 2 L of nasal cannula oxygen. 07/14/18 01:18 On reevaluation patient continues look well and says she feels well. She has no increased work of breathing. Her oxygen saturation is 99% on HER-2 liters of nasal cannula. Lung niño are clear without any wheezing. She says that she feels back to her baseline. Patient will be discharged home but is strongly encouraged to return to ER if she has recurrent difficulty breathing or wheezing not responding to inhaler. Patient agrees with plan and will be discharged home. Dictation of this chart was performed using voice recognition software; therefo re, there may be some unintended grammatical errors. - Vital Signs Vital signs: Temp Pulse Resp BP Pulse Ox 97.5 F 27 H 110/47 L 99 07/13/18 22:23 07/14/18 00:01 07/14/18 00:00 07/14/18 00:01 - Laboratory Result Diagrams: 07/13/18 22:30 07/13/18 22:30 Laboratory results interpreted by me: 07/13/18 07/13/18 07/13/18 22:30 22:30 22:30 WBC 12.0 H Seg Neutrophils % 81.8 H Lymphocytes % 10.9 L Absolute Neutrophils 9.8 H VBG pCO2 64.0 H Carbon Dioxide 31 H Glucose 139 H - EKG Interpretation by Me Additional EKG results interpreted by me: 07/13/18 22:46 EKG is reviewed and interpreted by me. EKG shows atrially paced rhythm with a rate of 107 bpm. Patient has some ST segment elevation in leads V3 but this is unchanged comparison to her old EKG from November 20, 2017. No new reciprocal depression. No ST segment changes that are any different from her previous EKG. AR interval is within normal range. QRS duration and QT intervals are prolonged. Discharge - Discharge Clinical Impression: COPD with acute exacerbation Condition: Good Disposition: HOME, SELF-CARE Additional Instructions: Please use your nebulizer treatments at home as prescribed. Please take the prednisone as prescribed. Please return to the ER if you have recurrent difficulty breathing not responding to your nebulizer treatment. Please try to stop smoking. Please follow-up with your doctor in 2-3 days for reevaluation. Prescriptions: Prednisone [Deltasone 20 mg Tablet] 3 tab PO DAILY 4 Days tablet Referrals: LNIETTE FELIPE MD [Primary Care Provider] - 07/16/18
[2018-07-13 22:48] LABS: ABSOLUTE EOSINOPHILS # (AUTO) 0.1 10^3/uL (0.0-0.6); ABSOLUTE LYMPHOCYTES (AUTO) 1.3 10^3/uL (0.5-4.7); ABSOLUTE MONOCYTES (AUTO) 0.8 10^3/uL (0.1-1.4); ABSOLUTE NEUT (AUTO) 9.8 10^3/uL (1.7-8.2); BASOPHILS % (AUTO) 0.3 % (0-2); EOSINOPHILS % (AUTO) 0.4 % (0-6); HEMATOCRIT 37.9 % (36.0-47.0); HEMOGLOBIN 12.4 g/dL (12.0-15.5); LYMPHOCYTES % (AUTO) 10.9 % (13-45); MEAN CORPUSCULAR HGB CONC 32.7 g/dL (32.0-36.0); MEAN CORPUSCULAR VOLUME 89 fl (80-97); MONOCYTES % (AUTO) 6.6 % (3-13); PLATELET COUNT 240 10^3/uL (150-450); RED BLOOD COUNT 4.28 10^6/uL (3.72-5.28); RED CELL DISTRIBUTION WIDTH 13.2 % (11.5-14.0); SEGMENTED NEUTROPHILS % (AUTO) 81.8 % (42-78); TOTAL CELLS COUNTED % (AUTO) 100 %
--- NOTE | 2018-07-13 22:58 | RADIOLOGY REPORT (SQ) ---
EXAM DESCRIPTION: XR CHEST 1 VIEW COMPLETED DATE/TME: 07/13/2018 22:17 CLINICAL HISTORY: 67 years Female, dyspnea COMPARISON:11/20/2017 NUMBER OF VIEWS/TECHNIQUE: 1/AP FINDINGS: Increased emphysematous lung volume, clear parenchyma, normal cardiac silhouette, and intact bony thorax. Left cardiac stimulator with leads. IMPRESSION: No acute cardiopulmonary findings.
[2018-07-13 23:32] LABS: ANION GAP 10 (5-19); BLOOD UREA NITROGEN 17 mg/dL (7-20); CALCIUM 9.3 mg/dL (8.4-10.2); CARBON DIOXIDE 31 mmol/L (22-30); CHLORIDE 98 mmol/L (98-107); GLUCOSE 139 mg/dL (75-110); POTASSIUM 4.3 mmol/L (3.6-5.0); SODIUM 138.7 mmol/L (137-145)
[2018-07-14 06:53] VITALS: BP 114/57
--- NOTE | 2018-07-14 17:21 | EKG REPORT ---
SEVERITY:- ABNORMAL ECG - ATRIAL-SENSED VENTRICULAR-PACED RHYTHM : Confirmed by: Karie Marx MD 14-Jul-2018 17:20:18
== END 2018-07-14 06:53 | disposition home or self-care (01) ==
LOC: ER 22:00
DX: J44.1 Chronic obstructive pulmonary disease with (acute) exacerbation (principal); Z99.81 Dependence on supplemental oxygen; F17.200 Nicotine dependence, unspecified, uncomplicated; Z88.5 Allergy status to narcotic agent; Z95.810 Presence of automatic (implantable) cardiac defibrillator
CPT/HCPCS: 93005; 94640; 99285; 36415; 85025; 80048; 82803; 71045; 93010; A9270

== ENCOUNTER 2018-08-07 15:42 | Inpatient (IN) | payer MEDICARE ==
[2018-08-07] MEDS ORDERED: AZITHROMYCIN INJ 500 MG VIAL IV ONE (15:45)
[2018-08-07] MEDS ORDERED: CEFTRIAXONE RTU 1 GM/D5W 50 ML IV ONE (15:45)
[2018-08-07] MEDS ORDERED: NORMAL SALINE 1000 ML 1,000 ML IV ONE (15:47)
[2018-08-07 16:19] LABS: ABSOLUTE LYMPHOCYTES (AUTO) 1.5 10^3/uL (0.5-4.7); ABSOLUTE MONOCYTES (AUTO) 0.7 10^3/uL (0.1-1.4); ABSOLUTE NEUT (AUTO) 5.3 10^3/uL (1.7-8.2); BASOPHILS % (AUTO) 0.5 % (0-2); EOSINOPHILS % (AUTO) 0.4 % (0-6); HEMATOCRIT 37.8 % (36.0-47.0); HEMOGLOBIN 12.4 g/dL (12.0-15.5); LYMPHOCYTES % (AUTO) 19.9 % (13-45); MEAN CORPUSCULAR HEMOGLOBIN 28.6 pg (27.0-33.4); MEAN CORPUSCULAR HGB CONC 32.9 g/dL (32.0-36.0); MEAN CORPUSCULAR VOLUME 87 fl (80-97); MONOCYTES % (AUTO) 9.7 % (3-13); PLATELET COUNT 238 10^3/uL (150-450); RED BLOOD COUNT 4.34 10^6/uL (3.72-5.28); SEGMENTED NEUTROPHILS % (AUTO) 69.5 % (42-78); TOTAL CELLS COUNTED % (AUTO) 100 %; WHITE BLOOD COUNT 7.6 10^3/uL (4.0-10.5)
[2018-08-07 16:26] LABS: ARTERIAL BLOOD H2CO3 1.58 mmol/L (1.05-1.35); ARTERIAL BLOOD HCO3 27.6 mmol/L (20-24); ARTERIAL BLOOD O2 SATURATION 99.6 % (94-98); ARTERIAL BLOOD PCO2 52.4 mmHg (35-45); ARTERIAL BLOOD PH 7.34 (7.35-7.45); ARTERIAL BLOOD PO2 295.1 mmHg (80-100); ARTERIAL BLOOD TOTAL CO2 29.2 mmol/L (21-25)
[2018-08-07 16:27] LABS: ARTERIAL BLOOD FIO2 60%
--- NOTE | 2018-08-07 16:28 | ER Document Report ---
ED Respiratory Problem - General Chief Complaint: Breathing Difficulty Stated Complaint: SHORT OF BREATH Time Seen by Provider: 08/07/18 15:44 Primary Care Provider: LINETTE FELIPE MD [Primary Care Provider] - Follow up as needed Information source: Patient, Emergency Med Personnel Notes: 68-year-old female with past medical history as recorded including COPD with intubations in the past who presents today with the onset yesterday of cough, and shortness of breath. EMS states that the oxygen saturation on arrival was 60%. They provided to duo nebulizers as well as place the patient on BiPAP with Solu-Medrol injection. Patient started to have some relief. Patient denies any chest pain, leg swelling, fevers, or vomiting. Patient does have a pacemaker and believes during the nebulizer treatments the pacemaker may "have fired". TRAVEL OUTSIDE OF THE [place] IN LAST 30 DAYS: No - HPI Patient complains to provider of: Short of breath Onset: Yesterday Duration: Better Quality of pain: No pain Severity: Severe Pain Level: Denies Context: Other - See above Short of Breath: Severe Cough: Nonproductive Sputum amount: Scant Associated symptoms: Other - Related Data Allergies/Adverse Reactions: codeine Allergy (Verified 11/20/17 16:24) Past Medical History - Social History Smoking Status: Former Smoker Chew tobacco use (# tins/day): No Drug Abuse: None Family History: Reviewed & Not Pertinent Patient has suicidal ideation: No Patient has homicidal ideation: No - Past Medical History Cardiac Medical History: Reports: Hx Atrial Fibrillation, Hx Congestive Heart Failure, Hx Hypertension Pulmonary Medical History: Reports: Hx COPD Renal/ Medical History: Denies: Hx Peritoneal Dialysis Psychiatric Medical History: Reports: Hx Depression Past Surgical History: Reports: Hx Cardiac Surgery - ICD - Immunizations Hx Diphtheria, Pertussis, Tetanus Vaccination: Yes Hx Pneumococcal Vaccination: 07/13/12 Review of Systems - Review of Systems Constitutional: denies: Fever EENT: Nose congestion. denies: Eye discharge, Nose discharge Cardiovascular: Heart racing. denies: Chest pain Respiratory: Short of breath, Wheezing. denies: Hemoptysis Gastrointestinal: denies: Vomiting Genitourinary: denies: Dysuria Musculoskeletal: denies: Leg swelling Skin: Other - no hives. denies: Rash Neurological/Psychological: Other - no slurred speech -: Yes All other systems reviewed and negative Physical Exam - Vital signs Vitals: Resp Pulse Ox 26 H 100 08/07/18 16:30 08/07/18 16:30 Notes: Reviewed vital signs and nursing note as charted by RN CONSTITUTIONAL: Alert in obvious respiratory distress HEAD: Normocephalic; atraumatic EYES: PERRL; Conjunctivae clear, sclerae non-icteric ENT: Normal nose; no rhinorrhea; moist mucous membranes; pharynx without lesions noted NECK: Supple without meningismus; non-tender CARD: Tachycardic and regular; no murmurs; symmetric distal pulses RESP: Patient has obvious tachypnea with retractions. Wheezing bilateral without any obvious rhonchi or rales ABD/GI: Normal bowel sounds; non-distended; soft, non-tender; no palpable organomegaly or masses BACK: The back appears normal and is non-tender to palpation EXT: Normal ROM in all joints; non-tender to palpation; no edema SKIN: No acute lesions noted NEURO: CN 2-12 intact; 5/5 bilateral upper and lower extremity strength with sensation intact to light touch PSYCH: The patient's mood and manner are appropriate. Grooming and personal hygiene are appropriate Course - Re-evaluation Re-evalutation: Given the history and physical examination we did place the patient on a continuous albuterol nebulizer on a BiPAP machine. Patient is slightly tachyca rdic. I will provide a liter of fluid as well as broad-spectrum antibiotics and reassess. 08/07/18 16:32 Patient's breathing is much improved. She is able to speak in sentences. Vital signs have stabilized. X-ray of the chest as recorded. EKG shows a heart rate of 124, ventricular paced rhythm, some slightly peaked T waves V3 and V4 08/07/18 16:34 EKG as recorded. We have ordered interrogation of the pacemaker/defibrillator 08/07/18 16:45 ABG has recorded. X-ray shows no obvious infiltrate. Patient will be admitted for further evaluation. I do believe pulmonary embolism and ACS to be extremely unlikely. - Vital Signs Vital signs: Temp Pulse Resp BP Pulse Ox 26 H 100 08/07/18 16:30 08/07/18 16:30 - Laboratory Result Diagrams: 08/07/18 15:45 08/07/18 15:45 Laboratory results interpreted by me: 08/07/18 08/07/18 15:45 16:05 Carbonic Acid 1.58 H ABG pH 7.34 L ABG pCO2 52.4 H ABG pO2 295.1 H ABG HCO3 27.6 H ABG Total CO2 29.2 H ABG O2 Saturation 99.6 H Carbon Dioxide 33 H Glucose 112 H Critical Care Note - Critical Care Note Total time excluding time spent on procedures (mins): 40 Discharge - Discharge Clinical Impression: Acute respiratory distress Condition: Fair Disposition: ADMITTED INPATIENT Admitting Provider: Hospitalist Unit Admitted: IMCU Referrals: LINETTE FELIPE MD [Primary Care Provider] - Follow up as needed
[2018-08-07 16:32] LABS: ALANINE AMINOTRANSFERASE 22 U/L (9-52); ALBUMIN 4.5 g/dL (3.5-5.0); ALKALINE PHOSPHATASE 92 U/L (38-126); ANION GAP 6 (5-19); ASPARTATE AMINO TRANSFERASE 28 U/L (14-36); BILIRUBIN,DIRECT 0.3 mg/dL (0.0-0.4); BILIRUBIN,TOTAL 0.5 mg/dL (0.2-1.3); BLOOD UREA NITROGEN 20 mg/dL (7-20); CALCIUM 9.6 mg/dL (8.4-10.2); CARBON DIOXIDE 33 mmol/L (22-30); CHLORIDE 101 mmol/L (98-107); GLUCOSE 112 mg/dL (75-110); POTASSIUM 4.9 mmol/L (3.6-5.0); SODIUM 139.7 mmol/L (137-145); TOTAL PROTEIN 7.4 g/dL (6.3-8.2)
--- NOTE | 2018-08-07 16:44 | RADIOLOGY REPORT (SQ) ---
EXAM DESCRIPTION: CHEST SINGLE VIEW COMPLETED DATE/TIME: 08/07/2018 4:00 pm REASON FOR STUDY: SOB COMPARISON: Chest x-ray 07/13/2018. EXAM PARAMETERS: NUMBER OF VIEWS: One view. TECHNIQUE: 2 frontal radiographic views of the chest acquired. RADIATION DOSE: NA LIMITATIONS: None. FINDINGS: LUNGS AND PLEURA: The lungs are hyperlucent, consistent with emphysematous changes. No co nsolidation, pleural effusion or pneumothorax. MEDIASTINUM AND HILAR STRUCTURES: No masses. Contour normal. HEART AND VASCULAR STRUCTURES: Heart normal in size. No overt vascular congestion. BONES: No acute findings. HARDWARE: There is a left-sided pacemaker. IMPRESSION: Emphysema. Otherwise, no acute radiographic finding in the chest. TECHNICAL DOCUMENTATION: JOB ID: [id number] [employer]- All Rights Reserved Reading location - IP/workstation name: [email or web address]
[2018-08-07 18:13] LABS: A TYPE INFLUENZA AG NEGATIVE (NEGATIVE); B INFLUENZA AG NEGATIVE (NEGATIVE)
[2018-08-07] MEDS ORDERED: METHYLPREDNISOLONE INJ 125 MG/2 ML SDV IV ONE (19:15)
[2018-08-07 19:42] LABS: INTERNATIONAL RATION (INR) 0.94; PROTHROMBIN TIME 13.1 SEC (11.4-15.4)
[2018-08-07 19:43] LABS: PARTIAL THROMBOPLASTIN TIME 31.3 SEC (23.5-35.8)
[2018-08-07 19:53] LABS: LIPASE 50.3 U/L (23-300)
[2018-08-07 20:06] LABS: CREATINE KINASE MB 1.03 ng/mL (<4.55)
[2018-08-07 20:11] LABS: FREE T4 (FREE THYROXINE) 1.2 ng/dL (0.78-2.19)
[2018-08-07] MEDS: IPRATROPIUM/ALBUTEROL 0.5-2.5 MG/3 ML AMPUL NEB SCH ×2 (20:17→22:58)
[2018-08-07 20:25] LABS: THYROID STIMULATING HORMONE 0.35 uIU/mL (0.47-4.68)
[2018-08-07 20:42] LABS: TROPONIN I < 0.012 ng/mL
--- NOTE | 2018-08-07 21:39 | EKG REPORT ---
SEVERITY:- ABNORMAL ECG - VENTRICULAR-PACED RHYTHM : Confirmed by: Karie Marx MD 07-Aug-2018 21:38:40
[2018-08-08] MEDS: IPRATROPIUM/ALBUTEROL 0.5-2.5 MG/3 ML AMPUL NEB SCH ×9 (00:33→20:53)
[2018-08-08 02:03] LABS: CREATINE KINASE MB 1.01 ng/mL (<4.55)
[2018-08-08 02:05] LABS: TROPONIN I < 0.012 ng/mL
[2018-08-08] MEDS: METHYLPREDNISOLONE INJ 125 MG/2 ML SDV IV SCH ×3 (02:56→18:29)
[2018-08-08 06:24] LABS: ARTERIAL BLOOD BASE EXCESS 1.3 mmol/L; ARTERIAL BLOOD H2CO3 1.53 mmol/L (1.05-1.35); ARTERIAL BLOOD HCO3 27.5 mmol/L (20-24); ARTERIAL BLOOD O2 SATURATION 98.6 % (94-98); ARTERIAL BLOOD PCO2 50.9 mmHg (35-45); ARTERIAL BLOOD PH 7.35 (7.35-7.45); ARTERIAL BLOOD TOTAL CO2 29.1 mmol/L (21-25)
[2018-08-08 06:25] LABS: ARTERIAL BLOOD FIO2 2LNC
[2018-08-08 07:10] LABS: ABSOLUTE LYMPHOCYTES (AUTO) 0.3 10^3/uL (0.5-4.7); ABSOLUTE NEUT (AUTO) 2.4 10^3/uL (1.7-8.2); BASOPHILS % (AUTO) 0.1 % (0-2); HEMATOCRIT 31.5 % (36.0-47.0); HEMOGLOBIN 10.4 g/dL (12.0-15.5); MEAN CORPUSCULAR HEMOGLOBIN 28.4 pg (27.0-33.4); MEAN CORPUSCULAR HGB CONC 32.9 g/dL (32.0-36.0); MEAN CORPUSCULAR VOLUME 86 fl (80-97); MONOCYTES % (AUTO) 1.7 % (3-13); PLATELET COUNT 185 10^3/uL (150-450); RED BLOOD COUNT 3.66 10^6/uL (3.72-5.28); SEGMENTED NEUTROPHILS % (AUTO) 88.2 % (42-78); TOTAL CELLS COUNTED % (AUTO) 100 %
[2018-08-08 07:13] LABS: WHITE BLOOD COUNT 2.7 10^3/uL (4.0-10.5)
[2018-08-08 07:22] LABS: ALANINE AMINOTRANSFERASE 22 U/L (9-52); ALBUMIN 3.7 g/dL (3.5-5.0); ALKALINE PHOSPHATASE 68 U/L (38-126); ANION GAP 6 (5-19); ASPARTATE AMINO TRANSFERASE 20 U/L (14-36); BILIRUBIN,DIRECT 0.2 mg/dL (0.0-0.4); BILIRUBIN,TOTAL 0.3 mg/dL (0.2-1.3); BLOOD UREA NITROGEN 26 mg/dL (7-20); CARBON DIOXIDE 31 mmol/L (22-30); CHLORIDE 102 mmol/L (98-107); CHOLESTEROL 156.35 mg/dL (0-200); GLUCOSE 149 mg/dL (75-110); POTASSIUM 4.4 mmol/L (3.6-5.0); SODIUM 138.9 mmol/L (137-145); TOTAL PROTEIN 6.2 g/dL (6.3-8.2); TRIGLYCERIDES 55 mg/dL (<150)
[2018-08-08 07:33] LABS: DIRECT LDL 108 mg/dL (<100)
[2018-08-08 07:34] LABS: CREATINE KINASE MB 1.03 ng/mL (<4.55)
[2018-08-08 07:38] LABS: TROPONIN I < 0.012 ng/mL
[2018-08-08] MEDS: ENOXAPARIN SODIUM INJ 40 MG/0.4 ML DISP.SYRIN SUBCUT SCH (09:31)
[2018-08-08] MEDS ORDERED: ALBUTEROL SULFATE 0.083% NEB 2.5 MG/3 ML AMPUL NEB PRN (11:32)
--- NOTE | 2018-08-08 11:37 | PDOC H&P ---
History of Present Illness Admission Date/PCP: 08/07/18 17:08 LINETTE FELIPE MD History of Present Illness: ZAY KNIGHT is a 68 year old female, she has a history of very severe chronic obstructive pulmonary disease, nonischemic cardiomyopathy status post pacemaker placement, she came to the emergency room for evaluation of shortness of breath, she is an avid smoker, in the emergency room she was found to be in respiratory distress, the arterial blood gas was treated hypercapnia with respiratory acidosis. She required noninvasive positive pressure ventilation with BiPAP in the ER to stabilize her breathing and prevent mechanical ventilation and intubation patient continues to smoke despite very severe lung disease she also has severe weight loss the body mass index is 15, she was referred to GI for outpatient colonoscopy multiple times but she never had this done, she previously had CT scan of the chest, pelvis and abdomen to evaluate the weight loss outpatient, the CAT scan that was done outpatient did not demonstrate any mass lesion. She continues to lose weight despite adequate appetite this portend a poor prognosis, the weight loss could also be from COPD itself. Hopefully we get the surgeon or GI to do colonoscopy on this admission on this patient. Past Medical History Cardiac Medical History: Reports: Atrial Fibrillation, Hypertension, Other - Nonischemic cardiomyopathy Pulmonary Medical History: Reports: Chronic Obstructive Pulmonary Disease (COPD) Psychiatric Medical History: Reports: Depression Past Surgical History Past Surgical History: Reports: Pacemaker Social History Smoking Status: Current Every Day Smoker Cigarettes Packs Per Day: 0.4 Number of Years Smokin Last Time Smoked: 08/07/2018 Frequency of Alcohol Use: None Hx Recreational Drug Use: No Drugs: None Hx Prescription Drug Abuse: No Family History Family History: Reviewed & Not Pertinent Parental Family History Reviewed: Yes Children Family History Reviewed: Yes Sibling(s) Family History Reviewed.: Yes Medication/Allergy Home Medications: Albuterol Sulfate [Ventolin Hfa] 2 puff IH Q4HP PRN 10/15/16 Aspirin [Aspirin EC] 81 mg PO DAILY 10/15/16 Fluticasone/Salmeterol [Advair 250-50 Diskus 28 dose] 1 inh IH Q12 10/15/16 Furosemide [Lasix] 20 mg PO DAILY 10/15/16 Multivit-Min/Iron/Folic/Lutein [Centrum Silver Women Tablet] 1 each PO DAILY 10/15/16 Gabapentin [Neurontin 300 mg Capsule] 300 mg PO Q8 08/08/18 Metoprolol Succinate [Toprol Xl 25 mg Tab.sr] 25 mg PO DAILY 08/08/18 Sertraline HCl [Zoloft 50 mg Tablet] 100 mg PO DAILY 08/08/18 Simvastatin [Zocor 20 mg Tablet] 20 mg PO QHS 08/08/18 Spironolactone [Aldactone 25 mg Tablet] 25 mg PO DAILY 08/08/18 Allergies/Adverse Reactions: codeine Allergy (Verified 11/20/17 16:24) Review of Systems Constitutional: ABSENT: chills, fever(s), headache(s), weight gain, weight loss Eyes: ABSENT: visual disturbances Ears: ABSENT: hearing changes Cardiovascular: PRESENT: dyspnea on exertion. ABSENT: chest pain, edema, orthropnea, palpitations Respiratory: PRESENT: dyspnea. ABSENT: cough, hemoptysis Gastrointestinal: ABSENT: abdominal pain, constipation, diarrhea, hematemesis, hematochezia, nausea, vomiting Genitourinary: ABSENT: dysuria, hematuria Musculoskeletal: ABSENT: joint swelling Integumentary: ABSENT: rash, wounds Neurological: ABSENT: abnormal gait, abnormal speech, confusion, dizziness, focal weakness, syncope Psychiatric: ABSENT: anxiety, depression, homidical ideation, suicidal ideation Endocrine: ABSENT: cold intolerance, heat intolerance, menstrual abnormalities, polydipsia, polyuria Hematologic/Lymphatic: ABSENT: easy bleeding, easy bruising, lymphadenopathy Physical Exam Vital Signs: Temp Pulse Resp BP Pulse Ox 97.6 F 99 20 113/55 L 96 08/08/18 07:21 08/08/18 08:50 08/08/18 08:50 08/08/18 07:21 08/08/18 08:50 Intake & Output 08/07/18 08/08/18 08/09/18 06:59 06:59 06:59 Intake Total 1000 Balance 1000 Weight 42.3 kg General appearance: PRESENT: severe distress, thin, other - Patient is alert extremely emaciated Head exam: PRESENT: atraumatic, normocephalic Eye exam: PRESENT: PERRLA Ear exam: PRESENT: normal external ear exam Mouth exam: PRESENT: moist, tongue midline Neck exam: PRESENT: full ROM Respiratory exam: PRESENT: decreased breath sounds Cardiovascular exam: PRESENT: RRR, +S1, +S2 GI/Abdominal exam: PRESENT: soft Rectal exam: PRESENT: deferred Neurological exam: PRESENT: alert, CN II-XII grossly intact Psychiatric exam: PRESENT: appropriate affect Skin exam: PRESENT: dry, intact, warm Results Laboratory Results: 08/08/18 06:50 08/08/18 06:50 08/07/18 08/07/18 08/07/18 15:45 15:45 16:05 WBC 7.6 RBC 4.34 Hgb 12.4 Hct 37.8 MCV 87 MCH 28.6 MCHC 32.9 RDW 13.0 Plt Count 238 Seg Neutrophils % 69.5 Lymphocytes % 19.9 Monocytes % 9.7 Eosinophils % 0.4 Basophils % 0.5 Absolute Neutrophils 5.3 Absolute Lymphocytes 1.5 Absolute Monocytes 0.7 Absolute Eosinophils 0.0 Absolute Basophils 0.0 Carbonic Acid 1.58 H HCO3/H2CO3 Ratio 17:1 ABG pH 7.34 L ABG pCO2 52.4 H ABG pO2 295.1 H ABG HCO3 27.6 H ABG O2 Saturation 99.6 H ABG Base Excess 1.0 FiO2 60% Sodium 139.7 Potassium 4.9 Chloride 101 Carbon Dioxide 33 H Anion Gap 6 BUN 20 Creatinine 0.54 Est GFR ( Amer) > 60 Est GFR (Non-Af Amer) > 60 Glucose 112 H Calcium 9.6 Phosphorus Magnesium Total Bilirubin 0.5 AST 28 ALT 22 Alkaline Phosphatase 92 Ammonia Total Protein 7.4 Albumin 4.5 Triglycerides Cholesterol LDL Cholesterol Direct VLDL Cholesterol HDL Cholesterol Amylase Lipase TSH Free T4 08/07/18 08/07/18 08/07/18 19:19 19:19 19:27 WBC RBC Hgb Hct MCV MCH MCHC RDW Plt Count Seg Neutrophils % Lymphocytes % Monocytes % Eosinophils % Basophils % Absolute Neutrophils Absolute Lymphocytes Absolute Monocytes Absolute Eosinophils Absolute Basophils Carbonic Acid HCO3/H2CO3 Ratio ABG pH ABG pCO2 ABG pO2 ABG HCO3 ABG O2 Saturation ABG Base Excess FiO2 Sodium Potassium Chloride Carbon Dioxide Anion Gap BUN Creatinine Est GFR ( Amer) Est GFR (Non-Af Amer) Glucose Calcium Phosphorus 4.0 Magnesium 2.3 Total Bilirubin AST ALT Alkaline Phosphatase Ammonia < 8.7 L Total Protein Albumin Triglycerides Cholesterol LDL Cholesterol Direct VLDL Cholesterol HDL Cholesterol Amylase 47 Lipase 50.3 TSH 0.35 L Free T4 1.20 08/08/18 08/08/18 08/08/18 06:06 06:50 06:50 WBC 2.7 L D RBC 3.66 L Hgb 10.4 L Hct 31.5 L MCV 86 MCH 28.4 MCHC 32.9 RDW 13.0 Plt Count 185 Seg Neutrophils % 88.2 H Lymphocytes % 10.0 L Monocytes % 1.7 L Eosinophils % 0.0 Basophils % 0.1 Absolute Neutrophils 2.4 Absolute Lymphocytes 0.3 L Absolute Monocytes 0.0 L Absolute Eosinophils 0.0 Absolute Basophils 0.0 Carbonic Acid 1.53 H HCO3/H2CO3 Ratio 17:1 ABG pH 7.35 ABG pCO2 50.9 H ABG pO2 136.0 H ABG HCO3 27.5 H ABG O2 Saturation 98.6 H ABG Base Excess 1.3 FiO2 2LNC Sodium 138.9 Potassium 4.4 Chloride 102 Carbon Dioxide 31 H Anion Gap 6 BUN 26 H Creatinine 0.63 Est GFR ( Amer) > 60 Est GFR (Non-Af Amer) > 60 Glucose 149 H Calcium 9.0 Phosphorus Magnesium Total Bilirubin 0.3 AST 20 ALT 22 Alkaline Phosphatase 68 Ammonia Total Protein 6.2 L Albumin 3.7 Triglycerides 55 Cholesterol 156.35 LDL Cholesterol Direct 108 H VLDL Cholesterol 11.0 HDL Cholesterol 46 Amylase Lipase TSH Free T4 08/07/18 08/07/18 08/07/18 15:45 19:19 19:19 Creatine Kinase 28 L CK-MB (CK-2) 1.03 Troponin I < 0.012 < 0.012 NT-Pro-B Natriuret Pep 08/08/18 08/08/18 08/08/18 01:09 01:09 06:50 Creatine Kinase 30 CK-MB (CK-2) 1.01 Troponin I < 0.012 NT-Pro-B Natriuret Pep 3330 H 08/08/18 08/08/18 06:50 06:50 Creatine Kinase 26 L CK-MB (CK-2) 1.03 Troponin I < 0.012 NT-Pro-B Natriuret Pep Impressions: Chest X-Ray 08/07/18 15:44 IMPRESSION: Emphysema. Otherwise, no acute radiographic finding in the chest. Assessment & Plan - Diagnosis (1) Acute hypercapnic respiratory failure Is this a current diagnosis for this admission?: Yes Plan: She has acute hypercapnic respiratory failure, requiring noninvasive positive pressure ventilation on BiPAP (2) COPD with acute exacerbation Is this a current diagnosis for this admission?: Yes Plan: She has acute COPD, start IV Solu-Medrol, bronchodilators (3) Severe protein-calorie malnutrition ([place]: less than 60% of standard weight) Is this a current diagnosis for this admission?: Yes Plan: I am very concerned about the severe weight loss, the body mass index is 15 she has preserved appetite, she eats and still loses weight, I will order a CT scan of the chest, pelvis and abdomen to rule out neoplasm especially in this patient who smokes for many years if the scan is negative and will request consultation from the surgeon or GI for colonoscopy
--- NOTE | 2018-08-08 11:42 | PDOC PROGRESS REPORT ---
Subjective Progress Note for:: 08/08/18 Subjective:: Patient was seen by the bedside, she is presently not requiring positive pressure ventilation, BiPAP, on nasal cannula 2 L. Reason For Visit: ACUTE HYPERCAPNIC RESPIRATORY FAILURE DUE TO ACUTE Physical Exam Vital Signs: Temp Pulse Resp BP Pulse Ox 97.6 F 99 20 113/55 L 96 08/08/18 07:21 08/08/18 08:50 08/08/18 08:50 08/08/18 07:21 08/08/18 08:50 Intake & Output 08/07/18 08/08/18 08/09/18 06:59 06:59 06:59 Intake Total 1000 Balance 1000 Weight 42.3 kg General appearance: PRESENT: no acute distress Eye exam: PRESENT: PERRLA Respiratory exam: PRESENT: decreased breath sounds Cardiovascular exam: PRESENT: +S1, +S2 GI/Abdominal exam: PRESENT: soft Neurological exam: PRESENT: alert Results Laboratory Results: 08/08/18 06:50 08/08/18 06:50 08/07/18 08/07/18 08/07/18 15:45 15:45 16:05 WBC 7.6 RBC 4.34 Hgb 12.4 Hct 37.8 MCV 87 MCH 28.6 MCHC 32.9 RDW 13.0 Plt Count 238 Seg Neutrophils % 69.5 Lymphocytes % 19.9 Monocytes % 9.7 Eosinophils % 0.4 Basophils % 0.5 Absolute Neutrophils 5.3 Absolute Lymphocytes 1.5 Absolute Monocytes 0.7 Absolute Eosinophils 0.0 Absolute Basophils 0.0 Carbonic Acid 1.58 H HCO3/H2CO3 Ratio 17:1 ABG pH 7.34 L ABG pCO2 52.4 H ABG pO2 295.1 H ABG HCO3 27.6 H ABG O2 Saturation 99.6 H ABG Base Excess 1.0 FiO2 60% Sodium 139.7 Potassium 4.9 Chloride 101 Carbon Dioxide 33 H Anion Gap 6 BUN 20 Creatinine 0.54 Est GFR ( Amer) > 60 Est GFR (Non-Af Amer) > 60 Glucose 112 H Calcium 9.6 Phosphorus Magnesium Total Bilirubin 0.5 AST 28 ALT 22 Alkaline Phosphatase 92 Ammonia Total Protein 7.4 Albumin 4.5 Triglycerides Cholesterol LDL Cholesterol Direct VLDL Cholesterol HDL Cholesterol Amylase Lipase TSH Free T4 08/07/18 08/07/18 08/07/18 19:19 19:19 19:27 WBC RBC Hgb Hct MCV MCH MCHC RDW Plt Count Seg Neutrophils % Lymphocytes % Monocytes % Eosinophils % Basophils % Absolute Neutrophils Absolute Lymphocytes Absolute Monocytes Absolute Eosinophils Absolute Basophils Carbonic Acid HCO3/H2CO3 Ratio ABG pH ABG pCO2 ABG pO2 ABG HCO3 ABG O2 Saturation ABG Base Excess FiO2 Sodium Potassium Chloride Carbon Dioxide Anion Gap BUN Creatinine Est GFR ( Amer) Est GFR (Non-Af Amer) Glucose Calcium Phosphorus 4.0 Magnesium 2.3 Total Bilirubin AST ALT Alkaline Phosphatase Ammonia < 8.7 L Total Protein Albumin Triglycerides Cholesterol LDL Cholesterol Direct VLDL Cholesterol HDL Cholesterol Amylase 47 Lipase 50.3 TSH 0.35 L Free T4 1.20 08/08/18 08/08/18 08/08/18 06:06 06:50 06:50 WBC 2.7 L D RBC 3.66 L Hgb 10.4 L Hct 31.5 L MCV 86 MCH 28.4 MCHC 32.9 RDW 13.0 Plt Count 185 Seg Neutrophils % 88.2 H Lymphocytes % 10.0 L Monocytes % 1.7 L Eosinophils % 0.0 Basophils % 0.1 Absolute Neutrophils 2.4 Absolute Lymphocytes 0.3 L Absolute Monocytes 0.0 L Absolute Eosinophils 0.0 Absolute Basophils 0.0 Carbonic Acid 1.53 H HCO3/H2CO3 Ratio 17:1 ABG pH 7.35 ABG pCO2 50.9 H ABG pO2 136.0 H ABG HCO3 27.5 H ABG O2 Saturation 98.6 H ABG Base Excess 1.3 FiO2 2LNC Sodium 138.9 Potassium 4.4 Chloride 102 Carbon Dioxide 31 H Anion Gap 6 BUN 26 H Creatinine 0.63 Est GFR ( Amer) > 60 Est GFR (Non-Af Amer) > 60 Glucose 149 H Calcium 9.0 Phosphorus Magnesium Total Bilirubin 0.3 AST 20 ALT 22 Alkaline Phosphatase 68 Ammonia Total Protein 6.2 L Albumin 3.7 Triglycerides 55 Cholesterol 156.35 LDL Cholesterol Direct 108 H VLDL Cholesterol 11.0 HDL Cholesterol 46 Amylase Lipase TSH Free T4 08/07/18 08/07/18 08/07/18 15:45 19:19 19:19 Creatine Kinase 28 L CK-MB (CK-2) 1.03 Troponin I < 0.012 < 0.012 NT-Pro-B Natriuret Pep 08/08/18 08/08/18 08/08/18 01:09 01:09 06:50 Creatine Kinase 30 CK-MB (CK-2) 1.01 Troponin I < 0.012 NT-Pro-B Natriuret Pep 3330 H 08/08/18 08/08/18 06:50 06:50 Creatine Kinase 26 L CK-MB (CK-2) 1.03 Troponin I < 0.012 NT-Pro-B Natriuret Pep Impressions: Chest X-Ray 08/07/18 15:44 IMPRESSION: Emphysema. Otherwise, no acute radiographic finding in the chest. Assessment & Plan - Diagnosis (1) Acute hypercapnic respiratory failure Is this a current diagnosis for this admission?: Yes Plan: Continue nasal cannula (2) COPD with acute exacerbation Is this a current diagnosis for this admission?: Yes Plan: Continue IV Solu-Medrol, bronchodilators (3) Severe protein-calorie malnutrition ([place]: less than 60% of standard weight) Is this a current diagnosis for this admission?: Yes Plan: I am very concerned about the severe weight loss, the body mass index is 15 she has preserved appetite, she eats and still loses weight, I will order a CT scan of the chest, pelvis and abdomen to rule out neoplasm especially in this patient who smokes for many years if the scan is negative and will request consultation from the surgeon or GI for colonoscopy
--- NOTE | 2018-08-08 12:14 | RADIOLOGY REPORT (SQ) ---
EXAM DESCRIPTION: CT CHEST WITH COMPLETED DATE/TIME: 08/08/2018 12:00 pm REASON FOR STUDY: unexplained weight loss COMPARISON: Chest x-ray 08/07/2018, CT chest 10/15/2016, CT abdomen and pelvis 08/08/2018. TECHNIQUE: CT scan of the chest performed using helical scanning technique with dynamic intravenous contrast injection. Images reviewed with lung, soft tissue and bone windows. Reconstructed coronal and sagittal MPR and MIP images reviewed. All images stored on PACS. All CT scanners at this facility use dose modulation, iterative reconstruction, and/or weight based d osing when appropriate to reduce radiation dose to as low as reasonably achievable (ALARA). [facility]: Dose Right [facility]: CareDose [facility]: Dose Right [facility]: Teradose 4D [facility]: ProtoStar CONTRAST TYPE AND DOSE: 48 mL Omnipaque 350- low osmolar. RENAL FUNCTION: Creatinine 0.63 RADIATION DOSE: . LIMITATIONS: There is motion artifact. FINDINGS: LUNGS AND PLEURA: No consolidation, pleural effusion or pneumothorax. No lung mass is not ed. Redemonstration of bilateral emphysematous changes. HILAR AND MEDIASTINAL STRUCTURES: No identified masses or abnormal nodes. HEART AND VASCULAR STRUCTURES: No thoracic aortic aneurysm. No pericardial effusion. HARDWARE: There is a left-sided pacemaker. UPPER ABDOMEN: See separate report of the CT of the abdomen. THYROID AND OTHER SOFT TISSUES: No masses. No adenopathy. BONES: Degenerative changes are noted at the spine. IMPRESSION: Emphysema. No evidence for lung mass. TECHNICAL DOCUMENTATION: JOB ID: [id number] Quality ID # [id number]: Final reports with documentation of one or more dose reduction techniques (e.g., Au tomated exposure control, adjustment of the mA and/or kV according to patient size, use of iterative reconstruction technique) 2010 [employer]- All Rights Reserved Reading location - IP/workstation name: [email or web address]
--- NOTE | 2018-08-08 12:31 | RADIOLOGY REPORT (SQ) ---
EXAM DESCRIPTION: CT ABD/PELVIS WITH IV ONLY COMPLETED DATE/TIME: 08/08/2018 12:00 pm REASON FOR STUDY: unexplained weight loss COMPARISON: CT chest 08/08/2018. PET/ CT 08/04/2014. CT abdomen and pelvis 04/27/2013. TECHNIQUE: CT scan of the abdomen and pelvis performed using helical scanning technique with dynamic intravenous contrast injection. No oral contrast. Images reviewed with lung, soft tissue, and bone windows. Reconstructed coronal and sagittal MPR images reviewed. Delayed images for evaluation of the urinary system also acquired. All images stored on PACS. All CT scanners at this facility use dose modulation, iterative reconstruction, and/or weight based d osing when appropriate to reduce radiation dose to as low as reasonably achievable (ALARA). [facility]: Dose Right [facility]: CareDose [facility]: Dose Right [facility]: Teradose 4D [facility]: CDP CONTRAST TYPE AND DOSE: contrast/concentration: Isovue 350.00 mg/ml; Total Contrast Delivered: 48.0 ml; Total Saline Delivered: 65.0 ml RENAL FUNCTION: Creatinine 0.63 RADIATION DOSE: CT Rad equipment meets quality standard of care and radiation dose reduction techniq ues were employed. CTDIvol: 4.8 - 5.0 mGy. DLP: 854 mGy-cm.. LIMITATIONS: None. FINDINGS: LOWER CHEST: See separate report of the CT of the chest. LIVER: Normal size. No masses. No dilated ducts. SPLEEN: Normal size. No focal lesions. PANCREAS: No significant calcifications. No adjacent inflammation or peripancreatic fluid collections . Pancreatic duct not dilated. GALLBLADDER: Present. ADRENAL GLANDS: No significant masses or asymmetry. RIGHT KIDNEY AND URETER: No solid masses. No significant calcifications. No hydronephrosis or hyd roureter. LEFT KIDNEY AND URETER: No solid masses. No significant calcifications. No hydronephrosis or hydr oureter. AORTA AND VESSELS: No abdominal aortic aneurysm. RETROPERITONEUM: No retroperitoneal adenopathy, hemorrhage or masses. BOWEL AND PERITONEAL CAVITY: No dilated bowel loops or inflammatory changes. No free fluid or free ai r. APPENDIX: Not visualized. PELVIS: Lobulated appearance of the uterus with coarse calcification, suggestive of fibroid. No free fluid. The urinary bladder is partially distended. ABDOMINAL WALL: No hernias. BONES: Degenerative changes at the spine. IMPRESSION: No significant or acute findings in the abdomen or pelvis. TECHNICAL DOCUMENTATION: JOB ID: [id number] [facility] Quality ID # [id number]: Final reports with documentation of one or more dose reduction techniques (e.g., Au tomated exposure control, adjustment of the mA and/or kV according to patient size, use of iterative reconstruction technique) 2010 [employer]- All Rights Reserved Reading location - IP/workstation name: [email or web address]
[2018-08-08] MEDS ORDERED: PEG 3350/NA SULF,BICARB,CL/KCL 4000 ML PO ONE (22:30)
[2018-08-08] MEDS ORDERED: PEG 3350/NA SULF,BICARB,CL/KCL 4000 ML ONE (22:36)
[2018-08-09] MEDS: IPRATROPIUM/ALBUTEROL 0.5-2.5 MG/3 ML AMPUL NEB SCH ×6 (00:51→21:13)
[2018-08-09] MEDS: METHYLPREDNISOLONE INJ 125 MG/2 ML SDV IV SCH ×3 (01:26→17:19)
[2018-08-09] MEDS: ACETAMINOPHEN 325 MG TABLET PO PRN (02:25)
[2018-08-09] MEDS: NA PHOS,M-B/NA PHOS,DI-BA (ADULT) 133 ML ENEMA PR ONE ×2 (05:27→05:37)
[2018-08-09 06:03] LABS: HEMATOCRIT 28.3 % (36.0-47.0); HEMOGLOBIN 9.6 g/dL (12.0-15.5); MEAN CORPUSCULAR HEMOGLOBIN 29.2 pg (27.0-33.4); MEAN CORPUSCULAR HGB CONC 33.9 g/dL (32.0-36.0); MEAN CORPUSCULAR VOLUME 86 fl (80-97); PLATELET COUNT 176 10^3/uL (150-450); RED BLOOD COUNT 3.29 10^6/uL (3.72-5.28); RED CELL DISTRIBUTION WIDTH 13.3 % (11.5-14.0)
[2018-08-09 06:15] LABS: ALANINE AMINOTRANSFERASE 29 U/L (9-52); ALBUMIN 3.8 g/dL (3.5-5.0); ALKALINE PHOSPHATASE 63 U/L (38-126); ANION GAP 10 (5-19); ASPARTATE AMINO TRANSFERASE 26 U/L (14-36); BILIRUBIN,DIRECT 0.2 mg/dL (0.0-0.4); BILIRUBIN,TOTAL 0.3 mg/dL (0.2-1.3); BLOOD UREA NITROGEN 28 mg/dL (7-20); CALCIUM 8.8 mg/dL (8.4-10.2); CARBON DIOXIDE 31 mmol/L (22-30); CHLORIDE 101 mmol/L (98-107); GLUCOSE 134 mg/dL (75-110); POTASSIUM 4.3 mmol/L (3.6-5.0); SODIUM 141.7 mmol/L (137-145); TOTAL PROTEIN 6.2 g/dL (6.3-8.2)
[2018-08-09] MEDS ORDERED: MAGNESIUM CITRATE 296 ML BOTTLE PO ONE (06:15)
[2018-08-09 06:40] LABS: WHITE BLOOD COUNT 8.1 10^3/uL (4.0-10.5)
[2018-08-09 06:44] LABS: ABSOLUTE LYMPHOCYTES# (MANUAL) 0.3 10^3/uL (0.5-4.7); ABSOLUTE NEUTROPHILS# (MANUAL) 7.8 10^3/uL (1.7-8.2); BASOPHILS % (MANUAL) 0 % (0-2); EOSINOPHILS % (MANUAL) 0 % (0-6); LYMPHOCYTES % (MANUAL) 4 % (13-45); MONOCYTES % (MANUAL) 0 % (3-13); SEGMENTED NEUTROPHILS % (MAN) 96 % (42-78); TOTAL CELLS COUNTED 100
[2018-08-09 06:50] LABS: BURR CELLS SLIGHT; OVALOCYTES 1+; POIKILOCYTOSIS 2+; SCHISTOCYTES SLIGHT; TEAR DROP CELLS SLIGHT; TOXIC GRANULATION SLIGHT
[2018-08-09 06:51] LABS: PLATELET COMMENT ADEQUATE
--- NOTE | 2018-08-09 07:26 | EKG REPORT ---
SEVERITY:- ABNORMAL ECG - ATRIAL-SENSED VENTRICULAR-PACED RHYTHM : Confirmed by: Karie Marx MD 09-Aug-2018 07:25:51
[2018-08-09] MEDS: ENOXAPARIN SODIUM INJ 40 MG/0.4 ML DISP.SYRIN SUBCUT SCH (09:32)
[2018-08-09] MEDS ORDERED: PROPOFOL INJ 200 MG/20 ML VIAL IV ONE (13:29)
--- NOTE | 2018-08-09 14:16 | Operative Report ---
Operative Report DATE OF SURGERY: 08/09/18 PREOPERATIVE DIAGNOSIS: 1. Gastrointestinal bleed. 2. History of internal/ex ternal hemorrhoids. 3. History of colonic polyps POSTOPERATIVE DIAGNOSIS: Internal/external hemorrhoids. No obvious sign of colonic source of bleeding. Limited bowel prep OPERATION: Total colonoscopy to cecum SURGEON: HUBERT RUIZ ANESTHESIA: LMAC TISSUE REMOVED OR ALTERED: None COMPLICATIONS: None ESTIMATED BLOOD LOSS: Scant INTRAOPERATIVE FINDINGS: See below PROCEDURE: Obtaining informed consent the patient was taken from the preoperative holding area to the main endoscopy suite where monitoring devices were attached to the patient. Plan and surgical timeout were conducted The patient was placed in the left lateral decubitus position with knees to chest. A perianal examination was performed. There was no visible or palpable anorectal pathology. Sphincter tone was felt to be normal. There were internal/external hemorrhoids, nonthrombosed. The flexible adult colonoscope was advanced through the anal rectal canal, all the way to the cecum; visualization of the cecum was achieved and the ileocecal valve, the appendiceal orifice and transillumination of the anterior abdominal wall. This was a a fair study on a poorly prepped bowel. The colonoscope was withdrawn slowly and methodically checked and the mucosa carefully. There was no evidence of tumor, stricture, bleeding or polyp. There was no evidence of diverticuloses. Again, this was a limited study due to the volume of particulate and semisolid stool which required a fair amount of irrigation but in no way we able to appreciate in its entirety. The scope was slowly withdrawn through the anal rectal canal. Complete visualization of the rectum was achieved with photodocumentation. The scope was withdrawn to the patient's anus. The patient tolerated the procedure well and was taken to the recovery area in stable condition. Impression: No lower gastrointestinal source of GI bleed; however study limited due to poor bowel prep Recommendations: 1. Support patient medically and follow hemoglobin as indicated 2. Per surveillance guidelines, patient would be an appropriate candidate for follow-up colonoscopy in 5 years.
[2018-08-09] MEDS ORDERED: ALBUTEROL SULFATE 0.083% NEB 2.5 MG/3 ML AMPUL NEB ONE (14:25)
--- NOTE | 2018-08-09 21:08 | PDOC PROGRESS REPORT ---
Subjective Progress Note for:: 08/09/18 Subjective:: Patient seen by the bedside she had colonoscopy done today no mass lesion was found Reason For Visit: ACUTE HYPERCAPNIC RESPIRATORY FAILURE DUE TO ACUTE Physical Exam Vital Signs: Temp Pulse Resp BP Pulse Ox 97.5 F 118 H 20 129/60 H 100 08/09/18 15:15 08/09/18 19:00 08/09/18 15:15 08/09/18 15:15 08/09/18 15:15 Intake & Output 08/08/18 08/09/18 08/10/18 06:59 06:59 06:59 Intake Total 1000 540 250 Output Total 0 Balance 1000 540 250 Weight 42.3 kg 47.7 kg General appearance: PRESENT: no acute distress Eye exam: PRESENT: PERRLA Respiratory exam: PRESENT: decreased breath sounds Cardiovascular exam: PRESENT: +S1, +S2 GI/Abdominal exam: PRESENT: soft Neurological exam: PRESENT: alert Results Laboratory Results: 08/09/18 05:41 08/09/18 05:41 08/09/18 08/09/18 05:41 05:41 WBC 8.1 D RBC 3.29 L Hgb 9.6 L Hct 28.3 L MCV 86 MCH 29.2 MCHC 33.9 RDW 13.3 Plt Count 176 Seg Neutrophils % Not Reportable Lymphocytes % Not Reportable Monocytes % Not Reportable Eosinophils % Not Reportable Basophils % Not Reportable Absolute Neutrophils Not Reportable Absolute Lymphocytes Not Reportable Absolute Monocytes Not Reportable Absolute Eosinophils Not Reportable Absolute Basophils Not Reportable Sodium 141.7 Potassium 4.3 Chloride 101 Carbon Dioxide 31 H Anion Gap 10 BUN 28 H Creatinine 0.71 Est GFR ( Amer) > 60 Est GFR (Non-Af Amer) > 60 Glucose 134 H Calcium 8.8 Total Bilirubin 0.3 AST 26 ALT 29 Alkaline Phosphatase 63 Total Protein 6.2 L Albumin 3.8 08/07/18 08/07/18 08/07/18 15:45 19:19 19:19 Creatine Kinase 28 L CK-MB (CK-2) 1.03 Troponin I < 0.012 < 0.012 NT-Pro-B Natriuret Pep 08/08/18 08/08/18 08/08/18 01:09 01:09 06:50 Creatine Kinase 30 CK-MB (CK-2) 1.01 Troponin I < 0.012 NT-Pro-B Natriuret Pep 3330 H 08/08/18 08/08/18 06:50 06:50 Creatine Kinase 26 L CK-MB (CK-2) 1.03 Troponin I < 0.012 NT-Pro-B Natriuret Pep Impressions: Chest X-Ray 08/07/18 15:44 IMPRESSION: Emphysema. Otherwise, no acute radiographic finding in the chest. Abdomen/Pelvis CT 08/08/18 00:00 IMPRESSION: No significant or acute findings in the abdomen or pelvis. Chest CT 08/08/18 00:00 IMPRESSION: Emphysema. No evidence for lung mass. Assessment & Plan - Diagnosis (1) Acute hypercapnic respiratory failure Is this a current diagnosis for this admission?: Yes Plan: Patient still very symptomatic, shortness of breath (2) COPD with acute exacerbation Is this a current diagnosis for this admission?: Yes (3) Severe protein-calorie malnutrition ([place]: less than 60% of standard weight) Is this a current diagnosis for this admission?: Yes Plan: The weight loss is most likely from COPD
[2018-08-10] MEDS: IPRATROPIUM/ALBUTEROL 0.5-2.5 MG/3 ML AMPUL NEB SCH ×6 (01:01→20:27)
[2018-08-10] MEDS: METHYLPREDNISOLONE INJ 125 MG/2 ML SDV IV SCH ×3 (01:09→18:12)
[2018-08-10 05:29] LABS: HEMATOCRIT 27.2 % (36.0-47.0); MEAN CORPUSCULAR HEMOGLOBIN 28.3 pg (27.0-33.4); MEAN CORPUSCULAR HGB CONC 33.2 g/dL (32.0-36.0); MEAN CORPUSCULAR VOLUME 85 fl (80-97); PLATELET COUNT 166 10^3/uL (150-450); RED BLOOD COUNT 3.19 10^6/uL (3.72-5.28); RED CELL DISTRIBUTION WIDTH 12.9 % (11.5-14.0); WHITE BLOOD COUNT 6.4 10^3/uL (4.0-10.5)
[2018-08-10 05:49] LABS: ABSOLUTE LYMPHOCYTES# (MANUAL) 0.1 10^3/uL (0.5-4.7); ABSOLUTE MONOCYTES # (MANUAL) 0.1 10^3/uL (0.1-1.4); ABSOLUTE NEUTROPHILS# (MANUAL) 6.3 10^3/uL (1.7-8.2); BASOPHILS % (MANUAL) 0 % (0-2); EOSINOPHILS % (MANUAL) 0 % (0-6); LYMPHOCYTES % (MANUAL) 1 % (13-45); MONOCYTES % (MANUAL) 1 % (3-13); PLATELET COMMENT ADEQUATE; RBC MORPHOLOGY COMMENT NORMO-CYTIC/CHROMIC; SEGMENTED NEUTROPHILS % (MAN) 98 % (42-78); TOTAL CELLS COUNTED 100; TOXIC GRANULATION SLIGHT
[2018-08-10 05:50] LABS: ALANINE AMINOTRANSFERASE 25 U/L (9-52); ALBUMIN 3.4 g/dL (3.5-5.0); ALKALINE PHOSPHATASE 57 U/L (38-126); ANION GAP 5 (5-19); ASPARTATE AMINO TRANSFERASE 22 U/L (14-36); BILIRUBIN,DIRECT 0.2 mg/dL (0.0-0.4); BILIRUBIN,TOTAL 0.3 mg/dL (0.2-1.3); BLOOD UREA NITROGEN 24 mg/dL (7-20); CALCIUM 8.8 mg/dL (8.4-10.2); CARBON DIOXIDE 33 mmol/L (22-30); CHLORIDE 101 mmol/L (98-107); GLUCOSE 128 mg/dL (75-110); POTASSIUM 4.4 mmol/L (3.6-5.0); SODIUM 138.5 mmol/L (137-145); TOTAL PROTEIN 5.7 g/dL (6.3-8.2)
[2018-08-10] MEDS: ENOXAPARIN SODIUM INJ 40 MG/0.4 ML DISP.SYRIN SUBCUT SCH (09:36)
[2018-08-10] MEDS ORDERED: ALBUTEROL SULFATE HFA (90 MCG/PUFF) 8 GM MDI (1 MDI/ER DISP) IH PRN (19:33)
--- NOTE | 2018-08-10 19:40 | PDOC PROGRESS REPORT ---
Subjective Progress Note for:: 08/10/18 Subjective:: Patient seen by the bedside she was very anxious today Reason For Visit: ACUTE HYPERCAPNIC RESPIRATORY FAILURE DUE TO ACUTE Physical Exam Vital Signs: Temp Pulse Resp BP Pulse Ox 98.0 F 113 H 20 117/62 100 08/10/18 15:11 08/10/18 15:11 08/10/18 15:11 08/10/18 15:11 08/10/18 15:11 Intake & Output 08/09/18 08/10/18 08/11/18 06:59 06:59 06:59 Intake Total 540 250 800 Output Total 0 Balance 540 250 800 Weight 47.7 kg 46.1 kg General appearance: PRESENT: no acute distress Eye exam: PRESENT: PERRLA Respiratory exam: PRESENT: decreased breath sounds Cardiovascular exam: PRESENT: +S1, +S2 GI/Abdominal exam: PRESENT: soft Neurological exam: PRESENT: alert Results Laboratory Results: 08/10/18 04:54 08/10/18 04:54 08/10/18 08/10/18 04:54 04:54 WBC 6.4 RBC 3.19 L Hgb 9.0 L Hct 27.2 L MCV 85 MCH 28.3 MCHC 33.2 RDW 12.9 Plt Count 166 Seg Neutrophils % Not Reportable Lymphocytes % Not Reportable Monocytes % Not Reportable Eosinophils % Not Reportable Basophils % Not Reportable Absolute Neutrophils Not Reportable Absolute Lymphocytes Not Reportable Absolute Monocytes Not Reportable Absolute Eosinophils Not Reportable Absolute Basophils Not Reportable Sodium 138.5 Potassium 4.4 Chloride 101 Carbon Dioxide 33 H Anion Gap 5 BUN 24 H Creatinine 0.56 Est GFR ( Amer) > 60 Est GFR (Non-Af Amer) > 60 Glucose 128 H Calcium 8.8 Total Bilirubin 0.3 AST 22 ALT 25 Alkaline Phosphatase 57 Total Protein 5.7 L Albumin 3.4 L 08/07/18 08/07/18 08/07/18 15:45 19:19 19:19 Creatine Kinase 28 L CK-MB (CK-2) 1.03 Troponin I < 0.012 < 0.012 NT-Pro-B Natriuret Pep 08/08/18 08/08/18 08/08/18 01:09 01:09 06:50 Creatine Kinase 30 CK-MB (CK-2) 1.01 Troponin I < 0.012 NT-Pro-B Natriuret Pep 3330 H 01/27/19 01/27/19 06:50 06:50 Creatine Kinase 26 L CK-MB (CK-2) 1.03 Troponin I < 0.012 NT-Pro-B Natriuret Pep Impressions: Chest X-Ray 08/07/18 15:44 IMPRESSION: Emphysema. Otherwise, no acute radiographic finding in the chest. Abdomen/Pelvis CT 08/08/18 00:00 IMPRESSION: No significant or acute findings in the abdomen or pelvis. Chest CT 08/08/18 00:00 IMPRESSION: Emphysema. No evidence for lung mass. Assessment & Plan - Diagnosis (1) Acute hypercapnic respiratory failure Is this a current diagnosis for this admission?: Yes Plan: Continue oxygen (2) COPD with acute exacerbation Is this a current diagnosis for this admission?: Yes Plan: Discontinue Solu-Medrol, start prednisone, start advair (3) Severe protein-calorie malnutrition ([place]: less than 60% of standard weight) Is this a current diagnosis for this admission?: Yes Plan: The weight loss is most likely from COPD
[2018-08-10] MEDS ORDERED: (PENDING PHARMACY ID) (Multivit-Min/Iron/Folic/Lutein [Centrum Silver Women Tablet] 1 EACH PO SCH (19:45)
[2018-08-10] MEDS: FLUTICASONE/SALMETEROL DISKUS 250-50 MCG/DOSE IH SCH (21:41)
[2018-08-10] MEDS: GABAPENTIN 300 MG CAPSULE PO SCH ×2 (21:41→21:43)
[2018-08-10] MEDS: PREDNISONE 20 MG TABLET PO SCH (21:41)
[2018-08-10] MEDS: FUROSEMIDE 20 MG TABLET PO SCH (21:42)
[2018-08-10] MEDS: SERTRALINE HCL 50 MG TABLET PO SCH (21:42)
[2018-08-10] MEDS: METOPROLOL SUCCINATE 25 MG TAB.SR.24H PO SCH (21:42)
[2018-08-10] MEDS: SIMVASTATIN 10 MG TABLET PO SCH (21:42)
[2018-08-10] MEDS: BUSPIRONE HCL 10 MG TABLET PO SCH (21:42)
[2018-08-10] MEDS: SPIRONOLACTONE 25 MG TABLET PO SCH (21:42)
[2018-08-10] MEDS: ASPIRIN 81 MG TABLET, ENT COATED PO SCH (21:42)
[2018-08-11] MEDS: IPRATROPIUM/ALBUTEROL 0.5-2.5 MG/3 ML AMPUL NEB SCH ×6 (00:18→20:05)
[2018-08-11] MEDS: ACETAMINOPHEN 325 MG TABLET PO PRN (03:35)
[2018-08-11] MEDS: GABAPENTIN 300 MG CAPSULE PO SCH ×3 (06:07→21:24)
[2018-08-11] MEDS: METOPROLOL SUCCINATE 25 MG TAB.SR.24H PO SCH (09:50)
[2018-08-11] MEDS: BUSPIRONE HCL 10 MG TABLET PO SCH ×2 (09:50→21:23)
[2018-08-11] MEDS: PREDNISONE 20 MG TABLET PO SCH (09:50)
[2018-08-11] MEDS: FUROSEMIDE 20 MG TABLET PO SCH (09:51)
[2018-08-11] MEDS: MULTIVITAMINS W-IRON TABLET, CHEWABLE PO SCH (09:51)
[2018-08-11] MEDS: ASPIRIN 81 MG TABLET, ENT COATED PO SCH (09:51)
[2018-08-11] MEDS: SERTRALINE HCL 50 MG TABLET PO SCH (09:51)
[2018-08-11] MEDS: SPIRONOLACTONE 25 MG TABLET PO SCH (09:52)
[2018-08-11] MEDS: ENOXAPARIN SODIUM INJ 40 MG/0.4 ML DISP.SYRIN SUBCUT SCH (09:52)
[2018-08-11] MEDS: FLUTICASONE/SALMETEROL DISKUS 250-50 MCG/DOSE IH SCH ×2 (09:53→21:23)
--- NOTE | 2018-08-11 18:53 | PDOC PROGRESS REPORT ---
Subjective Progress Note for:: 08/11/18 Subjective:: Patient is seen by the bedside, the plan is to transfer to residential for rehabilitation she is extremely deconditioned a walk of short distance, she gets very short of breath Reason For Visit: ACUTE HYPERCAPNIC RESPIRATORY FAILURE DUE TO ACUTE Physical Exam Vital Signs: Temp Pulse Resp BP Pulse Ox 98.4 F 96 20 129/67 H 96 08/11/18 15:47 08/11/18 16:20 08/11/18 16:20 08/11/18 15:47 08/11/18 16:20 Intake & Output 08/10/18 08/11/18 08/12/18 06:59 06:59 06:59 Intake Total 250 800 950 Output Total 0 Balance 250 800 950 Weight 46.1 kg 46.4 kg General appearance: PRESENT: no acute distress Eye exam: PRESENT: PERRLA Respiratory exam: PRESENT: decreased breath sounds Cardiovascular exam: PRESENT: +S1, +S2 GI/Abdominal exam: PRESENT: soft Neurological exam: PRESENT: alert Results Laboratory Results: 08/10/18 04:54 08/10/18 04:54 08/07/18 08/07/18 08/07/18 15:45 19:19 19:19 Creatine Kinase 28 L CK-MB (CK-2) 1.03 Troponin I < 0.012 < 0.012 NT-Pro-B Natriuret Pep 08/08/18 08/08/18 08/08/18 01:09 01:09 06:50 Creatine Kinase 30 CK-MB (CK-2) 1.01 Troponin I < 0.012 NT-Pro-B Natriuret Pep 3330 H 08/08/18 08/08/18 06:50 06:50 Creatine Kinase 26 L CK-MB (CK-2) 1.03 Troponin I < 0.012 NT-Pro-B Natriuret Pep Impressions: Chest X-Ray 08/07/18 15:44 IMPRESSION: Emphysema. Otherwise, no acute radiographic finding in the chest. Abdomen/Pelvis CT 08/08/18 00:00 IMPRESSION: No significant or acute findings in the abdomen or pelvis. Chest CT 08/08/18 00:00 IMPRESSION: Emphysema. No evidence for lung mass. Assessment & Plan - Diagnosis (1) Acute hypercapnic respiratory failure Is this a current diagnosis for this admission?: Yes (2) COPD with acute exacerbation Is this a current diagnosis for this admission?: Yes (3) Severe protein-calorie malnutrition ([place]: less than 60% of standard weight) Is this a current diagnosis for this admission?: Yes - Plan Summary Plan Summary: Continue present treatment
[2018-08-11] MEDS: SIMVASTATIN 10 MG TABLET PO SCH (21:24)
[2018-08-12] MEDS: IPRATROPIUM/ALBUTEROL 0.5-2.5 MG/3 ML AMPUL NEB SCH ×6 (00:54→20:52)
[2018-08-12] MEDS: ACETAMINOPHEN 325 MG TABLET PO PRN ×2 (03:23→13:25)
[2018-08-12] MEDS: GABAPENTIN 300 MG CAPSULE PO SCH ×3 (05:33→22:24)
[2018-08-12] MEDS: SPIRONOLACTONE 25 MG TABLET PO SCH (09:49)
[2018-08-12] MEDS: SERTRALINE HCL 50 MG TABLET PO SCH (09:49)
[2018-08-12] MEDS: PREDNISONE 20 MG TABLET PO SCH (09:49)
[2018-08-12] MEDS: BUSPIRONE HCL 10 MG TABLET PO SCH ×2 (09:49→22:24)
[2018-08-12] MEDS: ASPIRIN 81 MG TABLET, ENT COATED PO SCH (09:49)
[2018-08-12] MEDS: MULTIVITAMINS W-IRON TABLET, CHEWABLE PO SCH (09:49)
[2018-08-12] MEDS: METOPROLOL SUCCINATE 25 MG TAB.SR.24H PO SCH (09:49)
[2018-08-12] MEDS: FLUTICASONE/SALMETEROL DISKUS 250-50 MCG/DOSE IH SCH ×2 (09:50→22:24)
[2018-08-12] MEDS: FUROSEMIDE 20 MG TABLET PO SCH (09:50)
[2018-08-12] MEDS: ENOXAPARIN SODIUM INJ 40 MG/0.4 ML DISP.SYRIN SUBCUT SCH (09:50)
--- NOTE | 2018-08-12 20:17 | PDOC TRANSFER SUMMARY ---
General - Admit/Disc Date/PCP Admission Date/Primary Care Provider: 08/07/18 17:08 LINETTE FELIPE MD Discharge Date: 08/13/18 - Discharge Diagnosis (1) Acute hypercapnic respiratory failure Is this a current diagnosis for this admission?: Yes (2) COPD with acute exacerbation Is this a current diagnosis for this admission?: Yes (3) Severe protein-calorie malnutrition ([place]: less than 60% of standard weight) Is this a current diagnosis for this admission?: Yes (4) Acute hypoxemic respiratory failure Is this a current diagnosis for this admission?: Yes - Additional Information Resuscitation Status: Full Code Discharge Diet: As Tolerated Discharge Activity: Activity As Tolerated, Balance Activity w/Rest, No Driving, No Lifting Over 10 Pounds, No Lifting/Push/Pulling Prescriptions: Prednisone [Deltasone 20 mg Tablet] 10 mg PO DAILY #1 tablet Home Medications: Albuterol Sulfate [Ventolin Hfa] 2 puff IH Q4HP PRN 10/15/16 Furosemide [Lasix] 20 mg PO DAILY 10/15/16 Multivit-Min/Iron/Folic/Lutein [Centrum Silver Women Tablet] 1 each PO DAILY 10/15/16 Gabapentin [Neurontin 300 mg Capsule] 300 mg PO Q8 08/08/18 Metoprolol Succinate [Toprol Xl 25 mg Tab.sr] 25 mg PO DAILY 08/08/18 Sertraline HCl [Zoloft 50 mg Tablet] 100 mg PO DAILY 08/08/18 Spironolactone [Aldactone 25 mg Tablet] 25 mg PO DAILY 08/08/18 Acetaminophen [Tylenol 325 mg Tablet] 650 mg PO Q4HP PRN tablet 08/12/18 Aspirin [Ecotrin 81 mg EC Tablet] 81 mg PO DAILY tabec 08/12/18 Buspirone HCl [Buspar 10 mg Tablet] 10 mg PO Q12 tablet 08/12/18 Ipratropium/Albuterol Sulfate [Duoneb 3 ml Ampul] 3 ml NEB RTQ4 vial.neb 08/12/18 Prednisone [Deltasone 20 mg Tablet] 10 mg PO DAILY #1 tablet 08/12/18 History of Present Illness Admission Date/PCP: 08/07/18 17:08 LINETTE FELIPE MD History of Present Illness: ZAY KNIGHT is a 68 year old female, she has a history of very severe chronic obstructive pulmonary disease, nonischemic cardiomyopathy status post pacemaker placement, she came to the emergency room for evaluation of shortness of breath, she is an avid smoker, in the emergency room she was found to be in respiratory distress, the arterial blood gas was treated hypercapnia with respiratory acidosis. She required noninvasive positive pressure ventilation with BiPAP in the ER to stabilize her breathing and prevent mechanical ve ntilation and intubation patient continues to smoke despite very severe lung disease she also has severe weight loss the body mass index is 15, she was referred to GI for outpatient colonoscopy multiple times but she never had this done, she previously had CT scan of the chest, pelvis and abdomen to evaluate the weight loss outpatient, the CAT scan that was done outpatient did not demonstrate any mass lesion. She continues to lose weight despite adequate appetite this portend a poor prognosis, the weight loss could also be from COPD itself. Hopefully we get the surgeon or GI to do colonoscopy on this admission on this patient. Hospital Course Hospital Course: Patient was admitted for the management of acute COPD exacerbation associated with acute hypercapnic respiratory failure and hypoxemic respiratory failure. She was treated initially with noninvasive positive pressure ventilation , BiPAP, DuoNeb, IV Solu-Medrol 125 MG IV every 8 hour,She has severe weight loss, she was evaluated with CT scan of the chest, pelvis and abdomen, it was negative for any mass lesion. She also underwent colonoscopy on this admission which was negative for any mass lesion.She is very deconditioned, she needs physical therapy, she is also contemplating long-term stay in the facility Physical Exam Vital Signs: Temp Pulse Resp BP Pulse Ox 97.7 F 92 18 114/59 L 96 08/12/18 15:31 08/12/18 16:22 08/12/18 16:22 08/12/18 15:31 08/12/18 16:22 Intake & Output 08/11/18 08/12/18 08/13/18 06:59 06:59 06:59 Intake Total 800 950 355 Output Total 1000 Balance 800 950 -645 Weight 46.4 kg 46.5 kg General appearance: PRESENT: no acute distress Head exam: PRESENT: atraumatic Eye exam: PRESENT: PERRLA Mouth exam: PRESENT: moist Respiratory exam: PRESENT: decreased breath sounds Cardiovascular exam: PRESENT: RRR, +S1, +S2 Vascular exam: PRESENT: normal capillary refill GI/Abdominal exam: PRESENT: normal bowel sounds, soft Rectal exam: PRESENT: deferred Extremities exam: PRESENT: full ROM Neurological exam: PRESENT: alert, CN II-XII grossly intact Psychiatric exam: PRESENT: appropriate affect, normal mood Skin exam: PRESENT: dry, intact, warm Results Laboratory Results: 08/10/18 04:54 08/10/18 04:54 08/07/18 19:19 Blood Blood Culture - Final NO GROWTH IN 5 DAYS 08/07/18 19:27 Blood Blood Culture - Final NO GROWTH IN 5 DAYS 08/07/18 08/07/18 08/07/18 15:45 19:19 19:19 Creatine Kinase 28 L CK-MB (CK-2) 1.03 Troponin I < 0.012 < 0.012 NT-Pro-B Natriuret Pep 08/08/18 08/08/18 08/08/18 01:09 01:09 06:50 Creatine Kinase 30 CK-MB (CK-2) 1.01 Troponin I < 0.012 NT-Pro-B Natriuret Pep 3330 H 08/08/18 08/08/18 06:50 06:50 Creatine Kinase 26 L CK-MB (CK-2) 1.03 Troponin I < 0.012 NT-Pro-B Natriuret Pep Impressions: Chest X-Ray 08/07/18 15:44 IMPRESSION: Emphysema. Otherwise, no acute radiographic finding in the chest. Abdomen/Pelvis CT 08/08/18 00:00 IMPRESSION: No significant or acute findings in the abdomen or pelvis. Chest CT 08/08/18 00:00 IMPRESSION: Emphysema. No evidence for lung mass. Qualifiers - * PATIENT BEING DISCHARGED WITH ANY OF THE FOLLOWING DIAGNOSIS: No
[2018-08-12] MEDS: SIMVASTATIN 10 MG TABLET PO SCH (22:24)
[2018-08-13] MEDS: IPRATROPIUM/ALBUTEROL 0.5-2.5 MG/3 ML AMPUL NEB SCH ×4 (00:21→12:32)
[2018-08-13] MEDS: GABAPENTIN 300 MG CAPSULE PO SCH ×2 (05:39→13:31)
[2018-08-13] MEDS: SPIRONOLACTONE 25 MG TABLET PO SCH (10:24)
[2018-08-13] MEDS: METOPROLOL SUCCINATE 25 MG TAB.SR.24H PO SCH (10:25)
[2018-08-13] MEDS: ENOXAPARIN SODIUM INJ 40 MG/0.4 ML DISP.SYRIN SUBCUT SCH (10:25)
[2018-08-13] MEDS: SERTRALINE HCL 50 MG TABLET PO SCH (10:25)
[2018-08-13] MEDS: FLUTICASONE/SALMETEROL DISKUS 250-50 MCG/DOSE IH SCH (10:25)
[2018-08-13] MEDS: FUROSEMIDE 20 MG TABLET PO SCH (10:25)
[2018-08-13] MEDS: PREDNISONE 20 MG TABLET PO SCH (10:25)
[2018-08-13] MEDS: BUSPIRONE HCL 10 MG TABLET PO SCH (10:25)
[2018-08-13] MEDS: MULTIVITAMINS W-IRON TABLET, CHEWABLE PO SCH (10:25)
[2018-08-13] MEDS: ASPIRIN 81 MG TABLET, ENT COATED PO SCH (10:29)
[2018-08-13 12:38] VITALS: BP 116/64
== END 2018-08-13 13:40 | DRG 189 ==
LOC: ER 15:42 → EH 17:08 → 3S 18:30
PROVIDERS: ADMIT Internal Medicine; ATTEND Internal Medicine
PROC: 5A09357 Assistance with Respiratory Ventilation, Less than 24 Consecutive Hours, Continuous Positive Airway Pressure (ICD-10-PCS; 2018-08-07)
PROC: 3E0F3GC Introduction of Other Therapeutic Substance into Respiratory Tract, Percutaneous Approach (ICD-10-PCS; 2018-08-07)
PROC: 0DJD8ZZ Inspection of Lower Intestinal Tract, Via Natural or Artificial Opening Endoscopic (ICD-10-PCS; principal; 2018-08-09 13:45)
DX: J96.02 Acute respiratory failure with hypercapnia (principal); E43 Unspecified severe protein-calorie malnutrition; I42.9 Cardiomyopathy, unspecified; J44.1 Chronic obstructive pulmonary disease with (acute) exacerbation; R64 Cachexia; Z68.1 Body mass index [BMI] 19.9 or less, adult; F17.210 Nicotine dependence, cigarettes, uncomplicated; I10 Essential (primary) hypertension; F32.9 Major depressive disorder, single episode, unspecified; K64.8 Other hemorrhoids; K64.4 Residual hemorrhoidal skin tags; Z95.0 Presence of cardiac pacemaker; Z79.82 Long term (current) use of aspirin; Z79.51 Long term (current) use of inhaled steroids
CPT/HCPCS: 36415; 45380; 71045; 71260; 74177; 80048; 80053; 80061; 80076; 811; 82140; 82150; 82550; 82553; 82803; 82962; 83036; 83690; 83735; 83880; 84100; 84439; 84443; 84484; 85025; 85610; 85730; 87040; 87804; 90686; 93005; 93010; 94640; 94660; 96365; 96368; 99291; J0456; J0696; J1650; J2704; J2930; J3490; J7030; J7512; J7620

== ENCOUNTER 2018-09-08 00:32 | Inpatient (IN) | payer MEDICARE ==
--- NOTE | 2018-09-08 00:49 | ER Document Report ---
ED Fever - General Stated Complaint: TROUBLE BREATHING Time Seen by Provider: 09/08/18 00:48 Primary Care Provider: LINETTE FELIPE MD [Primary Care Provider] - Follow up as needed Notes: 68-year-old female coming from local nursing facility for evaluation of possible sepsis. Patient began having shortness of breath, fever, difficulty breathing, upper abdominal pain. Patient placed on CPAP on arrival by EMS. She complains of upper abdominal pain and chest tightness, shortness of breath and fever. Patient has a history of ischemic cardiomyopathy, COPD TRAVEL OUTSIDE OF THE [place] IN LAST 30 DAYS: No - HPI Onset: Just prior to arrival Severity: Severe Pain Level: 3 Associated symptoms: Fever - Related Data Allergies/Adverse Reactions: codeine Allergy (Verified 11/20/17 16:24) Past Medical History - General Information source: Patient - Social History Smoking Status: Former Smoker Frequency of alcohol use: None Lives with: Alf Family History: Reviewed & Not Pertinent - Past Medical History Cardiac Medical History: Reports: Hx Atrial Fibrillation, Hx Congestive Heart Failure, Hx Hypertension Pulmonary Medical History: Reports: Hx COPD Renal/ Medical History: Denies: Hx Peritoneal Dialysis Psychiatric Medical History: Reports: Hx Depression Past Surgical History: Reports: Hx Cardiac Surgery - ICD, Hx Pacemaker - Immunizations Hx Diphtheria, Pertussis, Tetanus Vaccination: Yes Hx Pneumococcal Vaccination: 07/13/12 Review of Systems - Review of Systems Constitutional: Fever. denies: Malaise, Weakness EENT: denies: Blurred vision, Difficulty swallowing, Mouth pain Cardiovascular: Chest pain, Palpitations, Heart racing Respiratory: Cough, Short of breath Gastrointestinal: Abdominal pain. denies: Diarrhea, Nausea, Vomiting Genitourinary: denies: Burning, Dysuria, Discharge Musculoskeletal: denies: Back pain, Joint pain, Muscle stiffness, Leg swelling, Ankle swelling Skin: denies: Dryness, Lesions, Lumps, Rash Hematologic/Lymphatic: denies: Anemia, Blood clots, Easy bleeding, Easy bruising Neurological/Psychological: denies: Confusion, Weakness, Numbness Physical Exam - Vital signs Vitals: Resp Pulse Ox 29 H 96 09/08/18 00:35 09/08/18 00:35 Interpretation: Tachycardic, Hypoxic, Tachypneic, Febrile - General General appearance: Appears well, Alert - HEENT Head: Normocephalic, Atraumatic Eyes: Normal Pupils: PERRL - Respiratory Respiratory status: No respiratory distress Chest status: Nontender Breath sounds: Decreased air movement, Wheezing Chest palpation: Normal - Cardiovascular Rhythm: Tachycardia Heart sounds: Normal auscultation Murmur: No - Abdominal Inspection: Normal Distension: No distension Bowel sounds: Normal Tenderness: Tender - Numbness in the right upper quadrant area Organomegaly: No organomegaly - Back Back: Normal, Nontender - Extremities General upper extremity: Normal inspection, Nontender, Normal color, Normal ROM, Normal temperature General lower extremity: Normal inspection, Nontender, Normal color, Normal ROM, Normal temperature. No: Colleen's sign - Neurological Neuro grossly intact: Yes Cognition: Normal Orientation: AAOx4 Rylie Coma Scale Eye Opening: Spontaneous [place] Coma Scale Verbal: Oriented Rylie Coma Scale Motor: Obeys Commands [place] Coma Scale Total: 15 Speech: Normal Motor strength normal: LUE, RUE, LLE, RLE Sensory: Normal - Psychological Associated symptoms: Normal affect, Normal mood - Skin Skin Temperature: Warm Skin Moisture: Dry Skin Color: Normal Course - Re-evaluation Re-evalutation: 09/08/18 02:48 Laboratory 09/08/18 09/08/18 09/08/18 00:05 00:39 00:39 WBC 19.0 H RBC 3.96 Hgb 10.9 L Hct 33.3 L MCV 84 MCH 27.6 MCHC 32.8 RDW 14.4 H Plt Count 237 Seg Neutrophils % 90.2 H Lymphocytes % 5.2 L Monocytes % 4.0 Eosinophils % 0.2 Basophils % 0.4 Absolute Neutrophils 17.1 H Absolute Lymphocytes 1.0 Absolute Monocytes 0.8 Absolute Eosinophils 0.0 Absolute Basophils 0.1 PT 13.3 INR 0.96 VBG pH VBG pCO2 VBG HCO3 VBG Base Excess Sodium Potassium Chloride Carbon Dioxide Anion Gap BUN Creatinine Est GFR ( Amer) Est GFR (Non-Af Amer) Glucose Lactic Acid Calcium Total Bilirubin Direct Bilirubin Neonat Total Bilirubin Neonat Direct Bilirubin Neonat Indirect Bili AST ALT Alkaline Phosphatase Troponin I Total Protein Albumin Urine Color YELLOW Urine Appearance SLIGHTLY-CLOUDY Urine pH 7.0 Ur Specific [place] 1.012 Urine Protein NEGATIVE Urine Glucose (UA) NEGATIVE Urine Ketones NEGATIVE Urine Blood NEGATIVE Urine Nitrite NEGATIVE Urine Bilirubin NEGATIVE Urine Urobilinogen NEGATIVE Ur Leukocyte Esterase SMALL H Urine WBC (Auto) 10 Urine RBC (Auto) 2 Urine Bacteria (Auto) TRACE Squamous Epi Cells Auto 1 Urine Mucus (Auto) RARE Urine Ascorbic Acid NEGATIVE 09/08/18 09/08/18 09/08/18 00:39 00:39 00:39 WBC RBC Hgb Hct MCV MCH MCHC RDW Plt Count Seg Neutrophils % Lymphocytes % Monocytes % Eosinophils % Basophils % Absolute Neutrophils Absolute Lymphocytes Absolute Monocytes Absolute Eosinophils Absolute Basophils PT INR VBG pH 7.37 VBG pCO2 47.1 VBG HCO3 26.8 VBG Base Excess 1.1 Sodium 135.5 L Potassium 4.2 Chloride 96 L Carbon Dioxide 30 Anion Gap 10 BUN 22 H Creatinine 0.90 Est GFR ( Amer) > 60 Est GFR (Non-Af Amer) > 60 Glucose 90 Lactic Acid 1.1 Calcium 9.3 Total Bilirubin 0.6 Direct Bilirubin 0.2 Neonat Total Bilirubin Not Reportable Neonat Direct Bilirubin Not Reportable Neonat Indirect Bili Not Reportable AST 37 H ALT 41 Alkaline Phosphatase 68 Troponin I Total Protein 6.9 Albumin 4.2 Urine Color Urine Appearance Urine pH Ur Specific [place] Urine Protein Urine Glucose (UA) Urine Ketones Urine Blood Urine Nitrite Urine Bilirubin Urine Urobilinogen Ur Leukocyte Esterase Urine WBC (Auto) Urine RBC (Auto) Urine Bacteria (Auto) Squamous Epi Cells Auto Urine Mucus (Auto) Urine Ascorbic Acid 09/08/18 00:39 WBC RBC Hgb Hct MCV MCH MCHC RDW Plt Count Seg Neutrophils % Lymphocytes % Monocytes % Eosinophils % Basophils % Absolute Neutrophils Absolute Lymphocytes Absolute Monocytes Absolute Eosinophils Absolute Basophils PT INR VBG pH VBG pCO2 VBG HCO3 VBG Base Excess Sodium Potassium Chloride Carbon Dioxide Anion Gap BUN Creatinine Est GFR ( Amer) Est GFR (Non-Af Amer) Glucose Lactic Acid Calcium Total Bilirubin Direct Bilirubin Neonat Total Bilirubin Neonat Direct Bilirubin Neonat Indirect Bili AST ALT Alkaline Phosphatase Troponin I 0.036 Total Protein Albumin Urine Color Urine Appearance Urine pH Ur Specific [place] Urine Protein Urine Glucose (UA) Urine Ketones Urine Blood Urine Nitrite Urine Bilirubin Urine Urobilinogen Ur Leukocyte Esterase Urine WBC (Auto) Urine RBC (Auto) Urine Bacteria (Auto) Squamous Epi Cells Auto Urine Mucus (Auto) Urine Ascorbic Acid 09/08/18 03:07 Patient with bilateral lower lobe pneumonia, leukocytosis and respiratory failure. Patient was resuscitated adequately on BiPAP. Looking much better at this time. We will remove her from the BiPAP. CT scan was done to look for sources of infection as she had a fever and leukocytosis. CT scan pneumonia. Patient does have a extremely large gallbladder so ultrasound ordered. At this time based on the fact that she has been hospitalized recently as well as a snf patient I am to treat her at this time aggressively with vancomycin and Zosyn. I did consult with her primary care doctor, Dr. Felipe who will admit her at this time to the IMCU. - Vital Signs Vital signs: Temp Pulse Resp BP Pulse Ox 22 H 101/46 L 93 09/08/18 02:01 09/08/18 02:01 09/08/18 02:01 - Laboratory Result Diagrams: 09/08/18 00:39 09/08/18 00:39 Laboratory results interpreted by me: 09/08/18 09/08/18 09/08/18 00:05 00:39 00:39 WBC 19.0 H Hgb 10.9 L Hct 33.3 L RDW 14.4 H Seg Neutrophils % 90.2 H Lymphocytes % 5.2 L Absolute Neutrophils 17.1 H Sodium 135.5 L Chloride 96 L BUN 22 H AST 37 H Ur Leukocyte Esterase SMALL H - EKG Interpretation by Me Additional EKG results interpreted by me: 09/08/18 02:47 Ventricular paced tachycardia, no significant signs of ischemia. Heart rate in the 120s Critical Care Note - Critical Care Note Total time excluding time spent on procedures (mins): 45 Comments: Respiratory distress, hypoxia, tachycardia Discharge - Discharge Clinical Impression: SIRS (systemic inflammatory response syndrome) Pneumonia of both lower lobes Qualifiers: Pneumonia type: due to unspecified organism Qualified Code(s): J18.1 - Lobar pneumonia, unspecified organism Condition: Fair Disposition: ADMITTED INPATIENT Admitting Provider: [facility] Admitted: [facility] Referrals: LINETTE FELIPE MD [Primary Care Provider] - Follow up as needed
[2018-09-08] MEDS ORDERED: ALBUTEROL SULFATE 0.083% NEB 2.5 MG/3 ML AMPUL NEB ONE (00:50)
[2018-09-08] MEDS ORDERED: METHYLPREDNISOLONE INJ 125 MG/2 ML SDV IV ONE (00:50)
[2018-09-08] MEDS ORDERED: NORMAL SALINE 500 ML IV ONE (00:50)
[2018-09-08 01:11] LABS: VENOUS BLOOD BASE EXCESS 1.1 mmol/L; VENOUS BLOOD HCO3 26.8 mmol/L (20-32); VENOUS BLOOD PCO2 47.1 mmHg (35-63); VENOUS BLOOD PH 7.37 (7.30-7.42)
[2018-09-08 01:16] LABS: ABSOLUTE BASOPHILS # (AUTO) 0.1 10^3/uL (0.0-0.2); ABSOLUTE MONOCYTES (AUTO) 0.8 10^3/uL (0.1-1.4); ABSOLUTE NEUT (AUTO) 17.1 10^3/uL (1.7-8.2); BASOPHILS % (AUTO) 0.4 % (0-2); EOSINOPHILS % (AUTO) 0.2 % (0-6); HEMATOCRIT 33.3 % (36.0-47.0); HEMOGLOBIN 10.9 g/dL (12.0-15.5); LYMPHOCYTES % (AUTO) 5.2 % (13-45); MEAN CORPUSCULAR HEMOGLOBIN 27.6 pg (27.0-33.4); MEAN CORPUSCULAR HGB CONC 32.8 g/dL (32.0-36.0); MEAN CORPUSCULAR VOLUME 84 fl (80-97); PLATELET COUNT 237 10^3/uL (150-450); RED BLOOD COUNT 3.96 10^6/uL (3.72-5.28); RED CELL DISTRIBUTION WIDTH 14.4 % (11.5-14.0); SEGMENTED NEUTROPHILS % (AUTO) 90.2 % (42-78); TOTAL CELLS COUNTED % (AUTO) 100 %
[2018-09-08 01:21] LABS: INTERNATIONAL RATION (INR) 0.96; PROTHROMBIN TIME 13.3 SEC (11.4-15.4)
[2018-09-08 01:31] LABS: ALANINE AMINOTRANSFERASE 41 U/L (9-52); ALBUMIN 4.2 g/dL (3.5-5.0); ALKALINE PHOSPHATASE 68 U/L (38-126); ANION GAP 10 (5-19); ASPARTATE AMINO TRANSFERASE 37 U/L (14-36); BILIRUBIN,DIRECT 0.2 mg/dL (0.0-0.4); BILIRUBIN,TOTAL 0.6 mg/dL (0.2-1.3); BLOOD UREA NITROGEN 22 mg/dL (7-20); CALCIUM 9.3 mg/dL (8.4-10.2); CARBON DIOXIDE 30 mmol/L (22-30); CHLORIDE 96 mmol/L (98-107); GLUCOSE 90 mg/dL (75-110); POTASSIUM 4.2 mmol/L (3.6-5.0); SODIUM 135.5 mmol/L (137-145); TOTAL PROTEIN 6.9 g/dL (6.3-8.2)
[2018-09-08 01:36] LABS: APPEARANCE,URINE SLIGHTLY-CLOUDY; BILIRUBIN,URINE NEGATIVE (NEGATIVE); COLOR,URINE YELLOW; GLUCOSE, URINE NEGATIVE (NEGATIVE); KETONES,URINE NEGATIVE (NEGATIVE); LEUKOCYTE ESTERASE,URINE SMALL (NEGATIVE); NITRITE,URINE NEGATIVE (NEGATIVE); PROTEIN,URINE NEGATIVE (NEGATIVE); URINE SPECIFIC GRAVITY 1.012; UROBILINOGEN,URINE NEGATIVE mg/dL (<2.0)
--- NOTE | 2018-09-08 01:39 | RADIOLOGY REPORT (SQ) ---
EXAM DESCRIPTION: XR CHEST 1 VIEW COMPLETED DATE/TME: 09/08/2018 00:42 CLINICAL HISTORY: 68 years Female, respiratory distress COMPARISON: 08/07/18. CT, 08/08/18. NUMBER OF VIEWS/TECHNIQUE: 1/AP FINDINGS: Increased lung volume, clear parenchyma, normal cardiac silhouette, and intact bony thorax.Left cardiac stimulator with leads. IMPRESSION: No acute cardiopulmonary findings.
[2018-09-08] MEDS ORDERED: VANCOMYCIN HCL INJ 1000 MG VIAL IV ONE (02:34)
[2018-09-08] MEDS ORDERED: PIPERACILLIN/TAZOBACTAM 3.375 GM VIAL IV ONE (02:34)
--- NOTE | 2018-09-08 02:58 | RADIOLOGY REPORT (SQ) ---
EXAM DESCRIPTION: CT ABDOMEN PELVIS WITH IV CONTRAST, CT CHEST WITH IV CONTRAST COMPLETED DATE/TME: 09/08/2018 01:04 CLINICAL HISTORY: 68 years Female, sob, abd pain, fever Comparison: None. Technique: IV contrast. Coronal and sagittal reformat. This exam was performed according to our departmental dose-optimization program, which includes automated exposure control, adjustment of the mA and/or kV according to patient size and/or use of iterative reconstruction technique. [facility]: Dose Right [facility]: CareDose [facility]: Dose Right [facility]: Teradose 4D [facility]: [employer] LIMITATIONS: None Findings: Moderate patchy airspace opacities at the dependent aspects of bilateral lower lobes. Cholelithiasis. Hydropic gallbladder with 4.7 cm transverse diameter.Stool retention. Likely benign, low-attenuation hepatic lesion(s) not definitively characterized. Appendectomy. Left cardiac stimulator with leads. Emphysematous hyperinflation. Stool retention. Degenerative disc disease. 1 cm degenerative L4 leftward subluxation at the L4-L5 disc. No hydronephrosis or hydroureter. No renal/ureteral stone. No bowel obstruction. No ascites. No pneumoperitoneum. Inferior neck, axillae, mediastinum, airway, heart, liver, pancreas, spleen, adrenals, renal system, gastrointestinal tract, pelvic organs, lymphatics, vasculature, and musculoskeleton appear otherwise unremarkable. Impression: 1. Bilateral lower lobar pneumonia. Recommend CR/CT surveillance including at 7-12 weeks following initiation of any clinically warranted therapy. 2. Cholelithiasis. Gallbladder hydrops.
--- NOTE | 2018-09-08 03:29 | RADIOLOGY REPORT (SQ) ---
CLINICAL HISTORY: ruq pain and fever COMPARISON: None. TECHNIQUE: US ABDOMEN LIMITED on 09/08/2018 2:36 AM DRESS CUTTER FINDINGS: Liver is normal in echotexture. Portal vein is patent. Gallbladder is normal in size containing multiple small gallstones. There is no wall thickening or pericholecystic fluid. Common bile duct measures 2 mm. Right kidney measures 10.8 cm without hydronephrosis. The aorta is not aneurysmal. IMPRESSION: Cholelithiasis without cholecystitis.
[2018-09-08] MEDS ORDERED: IPRATROPIUM/ALBUTEROL 0.5-2.5 MG/3 ML AMPUL NEB PRN (05:46)
[2018-09-08] MEDS ORDERED: CEFEPIME 2 GM/D5W RTU 2 GM/50 ML RTUPB IV SCH (06:00)
[2018-09-08 06:51] LABS: ARTERIAL BLOOD BASE EXCESS 1.1 mmol/L; ARTERIAL BLOOD H2CO3 1.28 mmol/L (1.05-1.35); ARTERIAL BLOOD O2 SATURATION 96.7 % (94-98); ARTERIAL BLOOD PCO2 42.6 mmHg (35-45); ARTERIAL BLOOD PO2 88.1 mmHg (80-100); ARTERIAL BLOOD TOTAL CO2 27.3 mmol/L (21-25)
[2018-09-08 06:54] LABS: ARTERIAL BLOOD FIO2 2L
[2018-09-08] MEDS: LEVOFLOXACIN 750 MG/D5W RTU 750 MG/150 ML RTUPB IV SCH (09:26)
[2018-09-08] MEDS: ENOXAPARIN SODIUM INJ 40 MG/0.4 ML DISP.SYRIN SUBCUT SCH (09:26)
--- NOTE | 2018-09-08 09:54 | EKG REPORT ---
SEVERITY:- ABNORMAL ECG - VENTRICULAR-PACED RHYTHM vs PACING ARTIFACT : Confirmed by: Viri Polk 08-Sep-2018 09:53:18
[2018-09-08] MEDS: NORMAL SALINE 1000 ML 1,000 ML IV PRN (13:05)
[2018-09-08] MEDS ORDERED: ACETAMINOPHEN 325 MG TABLET PO PRN (14:28)
[2018-09-08] MEDS ORDERED: (PENDING PHARMACY ID) (Multivit-Min/Iron/Folic/Lutein [Centrum Silver Women Tablet] 1 EACH PO SCH (14:30)
[2018-09-08] MEDS: ASPIRIN 81 MG TABLET, ENT COATED PO SCH (15:32)
[2018-09-08] MEDS: GABAPENTIN 300 MG CAPSULE PO SCH ×2 (15:32→22:04)
[2018-09-08] MEDS: SPIRONOLACTONE 25 MG TABLET PO SCH (15:32)
[2018-09-08] MEDS: BUSPIRONE HCL 10 MG TABLET PO SCH ×2 (15:32→22:04)
[2018-09-08] MEDS: METOPROLOL SUCCINATE 25 MG TAB.SR.24H PO SCH (15:32)
[2018-09-08] MEDS: ALBUTEROL SULFATE HFA (90 MCG/PUFF) 200 PUFF/8.5 GM MDI IH PRN (15:36)
[2018-09-08] MEDS: SERTRALINE HCL 50 MG TABLET PO SCH (15:46)
[2018-09-08] MEDS: IPRATROPIUM/ALBUTEROL 0.5-2.5 MG/3 ML AMPUL NEB SCH ×2 (16:15→20:38)
--- NOTE | 2018-09-08 16:20 | PDOC H&P ---
History of Present Illness Admission Date/PCP: 09/08/18 03:35 LINETTE FELIPE MD History of Present Illness: ZAY KNIGHT is a 68 year old female, She has a history of very severe ch ronic obstructive pulmonary disease, She was recently discharged from this hospital on August 12, 2018 when she was admitted for the management of acute hypercapnic respiratory failure, she is presently residing at the longterm at [place], she was transferred from the longterm to the emergency room last night for evaluation of acute shortness of breath, abdominal pain fever and chills. In the emergency room CT chest with IV contrast was obtained, it demonstrated emphysematous,hyperinflation also found was bilateral lower lobe pneumonia Past Medical History Cardiac Medical History: Reports: Hypertension, Other - Non-ischemic cardiomyopathy Pulmonary Medical History: Reports: Chronic Obstructive Pulmonary Disease (COPD) Psychiatric Medical History: Reports: Depression Past Surgical History Past Surgical History: Reports: Pacemaker Social History Lives with: Longterm Smoking Status: Former Smoker Last Time Smoked: 28 days ago Frequency of Alcohol Use: None Hx Recreational Drug Use: No Drugs: None Hx Prescription Drug Abuse: No - Advance Directive Resuscitation Status: Full Code Family History Family History: Reviewed & Not Pertinent Parental Family History Reviewed: Yes Children Family History Reviewed: Yes Sibling(s) Family History Reviewed.: Yes Medication/Allergy Home Medications: Acetaminophen [Tylenol 325 mg Tablet] 650 mg PO Q4HP PRN 09/08/18 Albuterol Sulfate [Proair Hfa Inhalation Aerosol 8.5 gm Mdi] 2 puff IH Q4HP PRN 09/08/18 Aspirin [Ecotrin 81 mg EC Tablet] 81 mg PO DAILY 09/08/18 Buspirone HCl [Buspar 10 mg Tablet] 10 mg PO Q12 09/08/18 Furosemide [Lasix 20 mg Tablet] 20 mg PO DAILY 09/08/18 Gabapentin [Neurontin 300 mg Capsule] 300 mg PO Q8 09/08/18 Ipratropium/Albuterol Sulfate [Duoneb 3 ml Ampul] 3 ml NEB RTQ4 09/08/18 Metoprolol Succinate [Toprol Xl 25 mg Tab.sr] 25 mg PO DAILY 09/08/18 Multivit-Min/Iron/Folic/Lutein [Centrum Silver Women Tablet] 1 each PO DAILY 09/08/18 Prednisone [Deltasone 10 mg Tablet] 10 mg PO DAILY 09/08/18 Sertraline HCl [Zoloft 50 mg Tablet] 100 mg PO DAILY 09/08/18 Spironolactone [Aldactone 25 mg Tablet] 25 mg PO DAILY 09/08/18 Allergies/Adverse Reactions: codeine Allergy (Verified 11/20/17 16:24) Review of Systems Constitutional: PRESENT: chills Cardiovascular: PRESENT: dyspnea on exertion Respiratory: PRESENT: cough, dyspnea Gastrointestinal: PRESENT: abdominal pain. ABSENT: constipation, diarrhea, hematemesis, hematochezia, nausea, vomiting Genitourinary: ABSENT: dysuria, hematuria Musculoskeletal: ABSENT: joint swelling Integumentary: ABSENT: rash, wounds Neurological: ABSENT: abnormal gait, abnormal speech, confusion, dizziness, focal weakness, syncope Psychiatric: ABSENT: anxiety, depression, homidical ideation, suicidal ideation Endocrine: ABSENT: cold intolerance, heat intolerance, menstrual abnormalities, polydipsia, polyuria Hematologic/Lymphatic: ABSENT: easy bleeding, easy bruising, lymphadenopathy Physical Exam Vital Signs: Temp Pulse Resp BP Pulse Ox 97.7 F 88 18 103/54 L 96 09/08/18 11:35 09/08/18 14:30 09/08/18 14:30 09/08/18 11:35 09/08/18 14:30 Intake & Output 09/07/18 09/08/18 09/09/18 06:59 06:59 06:59 Intake Total 500 400 Balance 500 400 Weight 50.5 kg General appearance: PRESENT: mild distress Head exam: PRESENT: atraumatic, normocephalic Eye exam: PRESENT: PERRLA Mouth exam: PRESENT: moist Neck exam: PRESENT: full ROM Respiratory exam: PRESENT: decreased breath sounds, rhonchi Cardiovascular exam: PRESENT: RRR, +S1, +S2 Vascular exam: PRESENT: normal capillary refill GI/Abdominal exam: PRESENT: normal bowel sounds, soft Neurological exam: PRESENT: alert, CN II-XII grossly intact Psychiatric exam: PRESENT: appropriate affect, normal mood Skin exam: PRESENT: dry, intact, warm Results Laboratory Results: 09/08/18 00:39 09/08/18 00:39 09/08/18 09/08/18 09/08/18 00:05 00:39 00:39 WBC 19.0 H RBC 3.96 Hgb 10.9 L Hct 33.3 L MCV 84 MCH 27.6 MCHC 32.8 RDW 14.4 H Plt Count 237 Seg Neutrophils % 90.2 H Lymphocytes % 5.2 L Monocytes % 4.0 Eosinophils % 0.2 Basophils % 0.4 Absolute Neutrophils 17.1 H Absolute Lymphocytes 1.0 Absolute Monocytes 0.8 Absolute Eosinophils 0.0 Absolute Basophils 0.1 Carbonic Acid HCO3/H2CO3 Ratio ABG pH ABG pCO2 ABG pO2 ABG HCO3 ABG O2 Saturation ABG Base Excess VBG pH VBG pCO2 VBG HCO3 VBG Base Excess FiO2 Sodium 135.5 L Potassium 4.2 Chloride 96 L Carbon Dioxide 30 Anion Gap 10 BUN 22 H Creatinine 0.90 Est GFR ( Amer) > 60 Est GFR (Non-Af Amer) > 60 Glucose 90 Lactic Acid Calcium 9.3 Total Bilirubin 0.6 AST 37 H ALT 41 Alkaline Phosphatase 68 Total Protein 6.9 Albumin 4.2 Urine Color YELLOW Urine Appearance SLIGHTLY-CLOUDY Urine pH 7.0 Ur Specific Kiester 1.012 Urine Protein NEGATIVE Urine Glucose (UA) NEGATIVE Urine Ketones NEGATIVE Urine Blood NEGATIVE Urine Nitrite NEGATIVE Ur Leukocyte Esterase SMALL H Urine WBC (Auto) 10 Urine RBC (Auto) 2 09/08/18 09/08/18 09/08/18 00:39 00:39 02:52 WBC RBC Hgb Hct MCV MCH MCHC RDW Plt Count Seg Neutrophils % Lymphocytes % Monocytes % Eosinophils % Basophils % Absolute Neutrophils Absolute Lymphocytes Absolute Monocytes Absolute Eosinophils Absolute Basophils Carbonic Acid HCO3/H2CO3 Ratio ABG pH ABG pCO2 ABG pO2 ABG HCO3 ABG O2 Saturation ABG Base Excess VBG pH 7.37 VBG pCO2 47.1 VBG HCO3 26.8 VBG Base Excess 1.1 FiO2 Sodium Potassium Chloride Carbon Dioxide Anion Gap BUN Creatinine Est GFR ( Amer) Est GFR (Non-Af Amer) Glucose Lactic Acid 1.1 0.8 Calcium Total Bilirubin AST ALT Alkaline Phosphatase Total Protein Albumin Urine Color Urine Appearance Urine pH Ur Specific Kiester Urine Protein Urine Glucose (UA) Urine Ketones Urine Blood Urine Nitrite Ur Leukocyte Esterase Urine WBC (Auto) Urine RBC (Auto) 09/08/18 06:36 WBC RBC Hgb Hct MCV MCH MCHC RDW Plt Count Seg Neutrophils % Lymphocytes % Monocytes % Eosinophils % Basophils % Absolute Neutrophils Absolute Lymphocytes Absolute Monocytes Absolute Eosinophils Absolute Basophils Carbonic Acid 1.28 HCO3/H2CO3 Ratio 20:1 ABG pH 7.40 ABG pCO2 42.6 ABG pO2 88.1 ABG HCO3 26.0 H ABG O2 Saturation 96.7 ABG Base Excess 1.1 VBG pH VBG pCO2 VBG HCO3 VBG Base Excess FiO2 2L Sodium Potassium Chloride Carbon Dioxide Anion Gap BUN Creatinine Est GFR ( Amer) Est GFR (Non-Af Amer) Glucose Lactic Acid Calcium Total Bilirubin AST ALT Alkaline Phosphatase Total Protein Albumin Urine Color Urine Appearance Urine pH Ur Specific Kiester Urine Protein Urine Glucose (UA) Urine Ketones Urine Blood Urine Nitrite Ur Leukocyte Esterase Urine WBC (Auto) Urine RBC (Auto) 09/08/18 09/08/18 09/08/18 00:39 05:08 05:08 Creatine Kinase 51 CK-MB (CK-2) Troponin I 0.036 0.113 09/08/18 05:08 Creatine Kinase CK-MB (CK-2) 2.73 Troponin I Impressions: Chest X-Ray 09/08/18 00:42 IMPRESSION: No acute cardiopulmonary findings. Abdomen Ultrasound 09/08/18 02:36 IMPRESSION: Cholelithiasis without cholecystitis. Assessment & Plan - Diagnosis (1) Pneumonia of both lower lobes Qualifiers: Pneumonia type: due to unspecified organism Qualified Code(s): J18.1 - Lobar pneumonia, unspecified organism Is this a current diagnosis for this admission?: Yes Plan: Patient with healthcare associated pneumonia, she will be treated with cefepime and Levaquin (2) Chronic obstructive pulmonary disease Qualifiers: COPD type: unspecified COPD Qualified Code(s): J44.9 - Chronic obstructive pulmonary disease, unspecified Is this a current diagnosis for this admission?: Yes (3) Protein-calorie undernutrition Qualifiers: Protein-calorie malnutrition severity: moderate Qualified Code(s): E44.0 - Moderate protein-calorie malnutrition Is this a current diagnosis for this admission?: Yes
[2018-09-08] MEDS: CEFEPIME HCL 2 GM in DEXTROSE 5%-WATER 50 ML IV SCH ×2 (17:10→22:03)
[2018-09-09] MEDS: IPRATROPIUM/ALBUTEROL 0.5-2.5 MG/3 ML AMPUL NEB SCH ×6 (00:04→20:21)
[2018-09-09] MEDS: NORMAL SALINE 1000 ML 1,000 ML IV PRN ×2 (00:38→17:49)
[2018-09-09] MEDS: GABAPENTIN 300 MG CAPSULE PO SCH ×3 (06:19→22:07)
[2018-09-09 06:43] LABS: ABSOLUTE LYMPHOCYTES (AUTO) 1.1 10^3/uL (0.5-4.7); ABSOLUTE MONOCYTES (AUTO) 1.1 10^3/uL (0.1-1.4); ABSOLUTE NEUT (AUTO) 13.5 10^3/uL (1.7-8.2); BASOPHILS % (AUTO) 0.3 % (0-2); EOSINOPHILS % (AUTO) 0.1 % (0-6); HEMATOCRIT 25.9 % (36.0-47.0); LYMPHOCYTES % (AUTO) 6.8 % (13-45); MEAN CORPUSCULAR HGB CONC 33.1 g/dL (32.0-36.0); MEAN CORPUSCULAR VOLUME 85 fl (80-97); MONOCYTES % (AUTO) 7.2 % (3-13); PLATELET COUNT 162 10^3/uL (150-450); RED BLOOD COUNT 3.06 10^6/uL (3.72-5.28); RED CELL DISTRIBUTION WIDTH 14.4 % (11.5-14.0); SEGMENTED NEUTROPHILS % (AUTO) 85.6 % (42-78); TOTAL CELLS COUNTED % (AUTO) 100 %; WHITE BLOOD COUNT 15.7 10^3/uL (4.0-10.5)
[2018-09-09 06:46] LABS: HEMOGLOBIN 8.6 g/dL (12.0-15.5)
[2018-09-09 06:51] LABS: ALANINE AMINOTRANSFERASE 33 U/L (9-52); ALBUMIN 3.2 g/dL (3.5-5.0); ALKALINE PHOSPHATASE 45 U/L (38-126); ANION GAP 8 (5-19); ASPARTATE AMINO TRANSFERASE 21 U/L (14-36); BILIRUBIN,DIRECT 0.2 mg/dL (0.0-0.4); BILIRUBIN,TOTAL 0.5 mg/dL (0.2-1.3); BLOOD UREA NITROGEN 22 mg/dL (7-20); CALCIUM 8.9 mg/dL (8.4-10.2); CARBON DIOXIDE 25 mmol/L (22-30); CHLORIDE 105 mmol/L (98-107); GLUCOSE 95 mg/dL (75-110); POTASSIUM 4.3 mmol/L (3.6-5.0); SODIUM 138.2 mmol/L (137-145); TOTAL PROTEIN 5.6 g/dL (6.3-8.2)
[2018-09-09] MEDS: LEVOFLOXACIN 750 MG/D5W RTU 750 MG/150 ML RTUPB IV SCH (08:13)
[2018-09-09] MEDS: MULTIVIT-STRESS FORMULA/ZINC TABLET PO SCH (09:50)
[2018-09-09] MEDS: ENOXAPARIN SODIUM INJ 40 MG/0.4 ML DISP.SYRIN SUBCUT SCH (09:50)
[2018-09-09] MEDS: ASPIRIN 81 MG TABLET, ENT COATED PO SCH (09:50)
[2018-09-09] MEDS: SPIRONOLACTONE 25 MG TABLET PO SCH (09:50)
[2018-09-09] MEDS: BUSPIRONE HCL 10 MG TABLET PO SCH ×2 (09:51→22:07)
[2018-09-09] MEDS: SERTRALINE HCL 50 MG TABLET PO SCH (09:51)
[2018-09-09] MEDS: CEFEPIME HCL 2 GM in DEXTROSE 5%-WATER 50 ML IV SCH ×2 (09:53→22:07)
[2018-09-09] MEDS: METOPROLOL SUCCINATE 25 MG TAB.SR.24H PO SCH (09:53)
[2018-09-09] MEDS: ALBUTEROL SULFATE HFA (90 MCG/PUFF) 200 PUFF/8.5 GM MDI IH PRN (10:07)
--- NOTE | 2018-09-09 21:13 | PDOC PROGRESS REPORT ---
Subjective Progress Note for:: 09/09/18 Subjective:: Patient seen by the bedside,she feels better compared to yesterday Reason For Visit: BILATERAL LOWER LOBE PNEUMONIA Physical Exam Vital Signs: Temp Pulse Resp BP Pulse Ox 98.6 F 93 16 105/51 L 96 09/09/18 14:57 09/09/18 19:00 09/09/18 16:13 09/09/18 14:57 09/09/18 16:13 Intake & Output 09/08/18 09/09/18 09/10/18 06:59 06:59 06:59 Intake Total 500 1309 1673 Balance 500 1309 1673 Weight 50.5 kg 52.6 kg General appearance: PRESENT: no acute distress Eye exam: PRESENT: PERRLA Respiratory exam: PRESENT: decreased breath sounds Cardiovascular exam: PRESENT: +S1, +S2 GI/Abdominal exam: PRESENT: soft Neurological exam: PRESENT: alert Results Laboratory Results: 09/09/18 05:47 09/09/18 05:47 09/09/18 09/09/18 05:47 05:47 WBC 15.7 H RBC 3.06 L Hgb 8.6 L D Hct 25.9 L MCV 85 MCH 28.0 MCHC 33.1 RDW 14.4 H Plt Count 162 Seg Neutrophils % 85.6 H Lymphocytes % 6.8 L Monocytes % 7.2 Eosinophils % 0.1 Basophils % 0.3 Absolute Neutrophils 13.5 H Absolute Lymphocytes 1.1 Absolute Monocytes 1.1 Absolute Eosinophils 0.0 Absolute Basophils 0.0 Sodium 138.2 Potassium 4.3 Chloride 105 Carbon Dioxide 25 Anion Gap 8 BUN 22 H Creatinine 0.71 Est GFR ( Amer) > 60 Est GFR (Non-Af Amer) > 60 Glucose 95 Calcium 8.9 Total Bilirubin 0.5 AST 21 ALT 33 Alkaline Phosphatase 45 Total Protein 5.6 L Albumin 3.2 L 09/08/18 00:05 Clean Catch Midstream Urine Culture - Final Mixed Skin. Possible Pathogen 09/08/18 09/08/18 09/08/18 00:39 05:08 05:08 Creatine Kinase 51 CK-MB (CK-2) Troponin I 0.036 0.113 09/08/18 05:08 Creatine Kinase CK-MB (CK-2) 2.73 Troponin I Impressions: Chest X-Ray 09/08/18 00:42 IMPRESSION: No acute cardiopulmonary findings. Abdomen Ultrasound 09/08/18 02:36 IMPRESSION: Cholelithiasis without cholecystitis. Assessment & Plan - Diagnosis (1) Pneumonia of both lower lobes Qualifiers: Pneumonia type: due to unspecified organism Qualified Code(s): J18.1 - Lobar pneumonia, unspecified organism Is this a current diagnosis for this admission?: Yes Plan: Continue antibiotics (2) Chronic obstructive pulmonary disease Qualifiers: COPD type: unspecified COPD Qualified Code(s): J44.9 - Chronic obstructive pulmonary disease, unspecified Is this a current diagnosis for this admission?: Yes Plan: continue treatment (3) Protein-calorie undernutrition Qualifiers: Protein-calorie malnutrition severity: moderate Qualified Code(s): E44.0 - Moderate protein-calorie malnutrition Is this a current diagnosis for this admission?: Yes
[2018-09-10] MEDS: IPRATROPIUM/ALBUTEROL 0.5-2.5 MG/3 ML AMPUL NEB SCH ×6 (00:16→20:15)
[2018-09-10 05:16] LABS: ABSOLUTE MONOCYTES (AUTO) 0.9 10^3/uL (0.1-1.4); ABSOLUTE NEUT (AUTO) 7.2 10^3/uL (1.7-8.2); BASOPHILS % (AUTO) 0.4 % (0-2); EOSINOPHILS % (AUTO) 0.4 % (0-6); HEMATOCRIT 26.5 % (36.0-47.0); HEMOGLOBIN 8.9 g/dL (12.0-15.5); LYMPHOCYTES % (AUTO) 10.8 % (13-45); MEAN CORPUSCULAR HEMOGLOBIN 28.2 pg (27.0-33.4); MEAN CORPUSCULAR HGB CONC 33.5 g/dL (32.0-36.0); MEAN CORPUSCULAR VOLUME 84 fl (80-97); MONOCYTES % (AUTO) 9.3 % (3-13); PLATELET COUNT 210 10^3/uL (150-450); RED BLOOD COUNT 3.15 10^6/uL (3.72-5.28); RED CELL DISTRIBUTION WIDTH 14.6 % (11.5-14.0); SEGMENTED NEUTROPHILS % (AUTO) 79.1 % (42-78); TOTAL CELLS COUNTED % (AUTO) 100 %; WHITE BLOOD COUNT 9.1 10^3/uL (4.0-10.5)
[2018-09-10 05:36] LABS: ALANINE AMINOTRANSFERASE 46 U/L (9-52); ALBUMIN 3.1 g/dL (3.5-5.0); ALKALINE PHOSPHATASE 48 U/L (38-126); ANION GAP 7 (5-19); ASPARTATE AMINO TRANSFERASE 22 U/L (14-36); BILIRUBIN,DIRECT 0.1 mg/dL (0.0-0.4); BILIRUBIN,TOTAL 0.3 mg/dL (0.2-1.3); BLOOD UREA NITROGEN 18 mg/dL (7-20); CALCIUM 8.7 mg/dL (8.4-10.2); CARBON DIOXIDE 25 mmol/L (22-30); CHLORIDE 107 mmol/L (98-107); GLUCOSE 95 mg/dL (75-110); POTASSIUM 4.1 mmol/L (3.6-5.0); SODIUM 139.2 mmol/L (137-145); TOTAL PROTEIN 5.7 g/dL (6.3-8.2)
[2018-09-10] MEDS: GABAPENTIN 300 MG CAPSULE PO SCH ×3 (06:26→22:02)
[2018-09-10] MEDS: CEFEPIME HCL 2 GM in DEXTROSE 5%-WATER 50 ML IV SCH ×2 (10:00→22:02)
[2018-09-10] MEDS: MULTIVIT-STRESS FORMULA/ZINC TABLET PO SCH (10:13)
[2018-09-10] MEDS: SERTRALINE HCL 50 MG TABLET PO SCH (10:14)
[2018-09-10] MEDS: METOPROLOL SUCCINATE 25 MG TAB.SR.24H PO SCH (10:14)
[2018-09-10] MEDS: SPIRONOLACTONE 25 MG TABLET PO SCH (10:15)
[2018-09-10] MEDS: ASPIRIN 81 MG TABLET, ENT COATED PO SCH (10:15)
[2018-09-10] MEDS: BUSPIRONE HCL 10 MG TABLET PO SCH ×2 (10:15→22:02)
[2018-09-10] MEDS: ENOXAPARIN SODIUM INJ 40 MG/0.4 ML DISP.SYRIN SUBCUT SCH (10:17)
[2018-09-10] MEDS: LEVOFLOXACIN 750 MG/D5W RTU 750 MG/150 ML RTUPB IV SCH (11:23)
--- NOTE | 2018-09-10 22:10 | PDOC PROGRESS REPORT ---
Subjective Progress Note for:: 09/10/18 Subjective:: She was seen by the bedside, she continues to improve, the imaging that was done on admission demonstrated cholelithiasis Reason For Visit: BILATERAL LOWER LOBE PNEUMONIA Physical Exam Vital Signs: Temp Pulse Resp BP Pulse Ox 98.0 F 97 18 123/41 L 97 09/10/18 15:51 09/10/18 19:00 09/10/18 16:04 09/10/18 15:51 09/10/18 16:04 Intake & Output 09/09/18 09/10/18 09/11/18 06:59 06:59 06:59 Intake Total 1309 1823 1675 Balance 1309 1823 1675 Weight 52.6 kg 54.1 kg General appearance: PRESENT: no acute distress Eye exam: PRESENT: PERRLA Respiratory exam: PRESENT: decreased breath sounds Cardiovascular exam: PRESENT: +S1, +S2 GI/Abdominal exam: PRESENT: soft Neurological exam: PRESENT: alert Results Laboratory Results: 09/10/18 05:03 09/10/18 05:03 09/10/18 09/10/18 05:03 05:03 WBC 9.1 RBC 3.15 L Hgb 8.9 L Hct 26.5 L MCV 84 MCH 28.2 MCHC 33.5 RDW 14.6 H Plt Count 210 Seg Neutrophils % 79.1 H Lymphocytes % 10.8 L Monocytes % 9.3 Eosinophils % 0.4 Basophils % 0.4 Absolute Neutrophils 7.2 Absolute Lymphocytes 1.0 Absolute Monocytes 0.9 Absolute Eosinophils 0.0 Absolute Basophils 0.0 Sodium 139.2 Potassium 4.1 Chloride 107 Carbon Dioxide 25 Anion Gap 7 BUN 18 Creatinine 0.63 Est GFR ( Amer) > 60 Est GFR (Non-Af Amer) > 60 Glucose 95 Calcium 8.7 Total Bilirubin 0.3 AST 22 ALT 46 Alkaline Phosphatase 48 Total Protein 5.7 L Albumin 3.1 L 09/08/18 09/08/18 09/08/18 00:39 05:08 05:08 Creatine Kinase 51 CK-MB (CK-2) Troponin I 0.036 0.113 09/08/18 05:08 Creatine Kinase CK-MB (CK-2) 2.73 Troponin I Impressions: Chest X-Ray 09/08/18 00:42 IMPRESSION: No acute cardiopulmonary findings. Abdomen Ultrasound 09/08/18 02:36 IMPRESSION: Cholelithiasis without cholecystitis. Assessment & Plan - Diagnosis (1) Pneumonia of both lower lobes Qualifiers: Pneumonia type: due to unspecified organism Qualified Code(s): J18.1 - Lobar pneumonia, unspecified organism Is this a current diagnosis for this admission?: Yes Plan: Continue antibiotics (2) Chronic obstructive pulmonary disease Qualifiers: COPD type: unspecified COPD Qualified Code(s): J44.9 - Chronic obstructive pulmonary disease, unspecified Is this a current diagnosis for this admission?: Yes (3) Protein-calorie undernutrition Qualifiers: Protein-calorie malnutrition severity: moderate Qualified Code(s): E44.0 - Moderate protein-calorie malnutrition Is this a current diagnosis for this admission?: Yes (4) Cholelithiasis Qualifiers: Cholelithiasis location: gallbladder Cholecystitis presence: without cholecystitis Biliary obstruction: without biliary obstruction Qualified Code(s): K80.20 - Calculus of gallbladder without cholecystitis without obstruction Is this a current diagnosis for this admission?: Yes Plan: consult surgery
[2018-09-11] MEDS: IPRATROPIUM/ALBUTEROL 0.5-2.5 MG/3 ML AMPUL NEB SCH ×6 (01:08→20:08)
[2018-09-11] MEDS: GABAPENTIN 300 MG CAPSULE PO SCH ×3 (05:23→21:03)
[2018-09-11] MEDS: NORMAL SALINE 1000 ML 1,000 ML IV PRN ×2 (05:23→21:04)
[2018-09-11 05:39] LABS: ABSOLUTE EOSINOPHILS # (AUTO) 0.1 10^3/uL (0.0-0.6); ABSOLUTE MONOCYTES (AUTO) 0.9 10^3/uL (0.1-1.4); ABSOLUTE NEUT (AUTO) 6.1 10^3/uL (1.7-8.2); BASOPHILS % (AUTO) 0.5 % (0-2); EOSINOPHILS % (AUTO) 1.1 % (0-6); HEMATOCRIT 26.8 % (36.0-47.0); HEMOGLOBIN 8.9 g/dL (12.0-15.5); LYMPHOCYTES % (AUTO) 12.6 % (13-45); MEAN CORPUSCULAR HEMOGLOBIN 27.9 pg (27.0-33.4); MEAN CORPUSCULAR HGB CONC 33.3 g/dL (32.0-36.0); MEAN CORPUSCULAR VOLUME 84 fl (80-97); MONOCYTES % (AUTO) 11.3 % (3-13); PLATELET COUNT 233 10^3/uL (150-450); RED CELL DISTRIBUTION WIDTH 14.3 % (11.5-14.0); SEGMENTED NEUTROPHILS % (AUTO) 74.5 % (42-78); TOTAL CELLS COUNTED % (AUTO) 100 %; WHITE BLOOD COUNT 8.2 10^3/uL (4.0-10.5)
[2018-09-11 05:58] LABS: ALANINE AMINOTRANSFERASE 28 U/L (9-52); ALBUMIN 3.2 g/dL (3.5-5.0); ALKALINE PHOSPHATASE 49 U/L (38-126); ANION GAP 5 (5-19); ASPARTATE AMINO TRANSFERASE 17 U/L (14-36); BILIRUBIN,DIRECT 0.2 mg/dL (0.0-0.4); BILIRUBIN,TOTAL 0.4 mg/dL (0.2-1.3); BLOOD UREA NITROGEN 15 mg/dL (7-20); CALCIUM 9.1 mg/dL (8.4-10.2); CARBON DIOXIDE 28 mmol/L (22-30); CHLORIDE 106 mmol/L (98-107); GLUCOSE 89 mg/dL (75-110); POTASSIUM 4.4 mmol/L (3.6-5.0); SODIUM 139.1 mmol/L (137-145); TOTAL PROTEIN 5.7 g/dL (6.3-8.2)
[2018-09-11] MEDS: LEVOFLOXACIN 750 MG/D5W RTU 750 MG/150 ML RTUPB IV SCH (08:12)
[2018-09-11] MEDS: ASPIRIN 81 MG TABLET, ENT COATED PO SCH (09:14)
[2018-09-11] MEDS: METOPROLOL SUCCINATE 25 MG TAB.SR.24H PO SCH (09:14)
[2018-09-11] MEDS: SPIRONOLACTONE 25 MG TABLET PO SCH (09:14)
[2018-09-11] MEDS: SERTRALINE HCL 50 MG TABLET PO SCH (09:14)
[2018-09-11] MEDS: BUSPIRONE HCL 10 MG TABLET PO SCH ×2 (09:14→21:04)
[2018-09-11] MEDS: MULTIVIT-STRESS FORMULA/ZINC TABLET PO SCH (09:14)
[2018-09-11] MEDS: ENOXAPARIN SODIUM INJ 40 MG/0.4 ML DISP.SYRIN SUBCUT SCH (09:15)
[2018-09-11] MEDS: CEFEPIME HCL 2 GM in DEXTROSE 5%-WATER 50 ML IV SCH ×2 (09:15→21:04)
--- NOTE | 2018-09-11 10:27 | PDOC PROGRESS REPORT ---
Subjective Progress Note for:: 09/11/18 Subjective:: Patient is currently doing well Patient is denied any abdominal pain no nausea no vomiting Patient appetite is still very poor Patients denied any chest pain denied any shortness of the breath Patient ultrasound suggested cholelithiasis but no cholecystitis Reason For Visit: BILATERAL LOWER LOBE PNEUMONIA Physical Exam Vital Signs: Temp Pulse Resp BP Pulse Ox 97.7 F 103 H 18 103/50 L 93 09/11/18 07:17 09/11/18 09:50 09/11/18 09:50 09/11/18 07:17 09/11/18 09:50 Intake & Output 09/10/18 09/11/18 09/12/18 06:59 06:59 06:59 Intake Total 1823 1725 150 Balance 1823 1725 150 Weight 54.1 kg 55.1 kg General appearance: PRESENT: no acute distress, well-developed, well-nourished Head exam: PRESENT: atraumatic, normocephalic Eye exam: PRESENT: conjunctiva pink, EOMI, PERRLA. ABSENT: scleral icterus Ear exam: PRESENT: normal external ear exam Mouth exam: PRESENT: moist, tongue midline Neck exam: PRESENT: full ROM. ABSENT: carotid bruit, JVD, lymphadenopathy, thyromegaly Respiratory exam: PRESENT: clear to auscultation maury Cardiovascular exam: PRESENT: RRR. ABSENT: diastolic murmur, rubs, systolic murmur Vascular exam: PRESENT: normal capillary refill GI/Abdominal exam: PRESENT: normal bowel sounds, soft. ABSENT: distended, guarding, mass, organolmegaly, rebound, tenderness Rectal exam: PRESENT: deferred Musculoskeletal exam: PRESENT: ambulatory Neurological exam: PRESENT: alert, awake, oriented to person, oriented to place, oriented to time, oriented to situation, CN II-XII grossly intact. ABSENT: motor sensory deficit Psychiatric exam: PRESENT: appropriate affect, normal mood. ABSENT: homicidal ideation, suicidal ideation Skin exam: PRESENT: dry, intact, warm. ABSENT: cyanosis, rash Results Laboratory Results: 09/11/18 05:08 09/11/18 05:08 09/11/18 09/11/18 05:08 05:08 WBC 8.2 RBC 3.20 L Hgb 8.9 L Hct 26.8 L MCV 84 MCH 27.9 MCHC 33.3 RDW 14.3 H Plt Count 233 Seg Neutrophils % 74.5 Lymphocytes % 12.6 L Monocytes % 11.3 Eosinophils % 1.1 Basophils % 0.5 Absolute Neutrophils 6.1 Absolute Lymphocytes 1.0 Absolute Monocytes 0.9 Absolute Eosinophils 0.1 Absolute Basophils 0.0 Sodium 139.1 Potassium 4.4 Chloride 106 Carbon Dioxide 28 Anion Gap 5 BUN 15 Creatinine 0.62 Est GFR ( Amer) > 60 Est GFR (Non-Af Amer) > 60 Glucose 89 Calcium 9.1 Total Bilirubin 0.4 AST 17 ALT 28 Alkaline Phosphatase 49 Total Protein 5.7 L Albumin 3.2 L 09/08/18 09/08/18 09/08/18 00:39 05:08 05:08 Creatine Kinase 51 CK-MB (CK-2) Troponin I 0.036 0.113 09/08/18 05:08 Creatine Kinase CK-MB (CK-2) 2.73 Troponin I Impressions: Chest X-Ray 09/08/18 00:42 IMPRESSION: No acute cardiopulmonary findings. Abdomen Ultrasound 09/08/18 02:36 IMPRESSION: Cholelithiasis without cholecystitis. Assessment & Plan - Diagnosis (1) Chronic obstructive pulmonary disease Qualifiers: COPD type: unspecified COPD Qualified Code(s): J44.9 - Chronic obstructive pulmonary disease, unspecified Is this a current diagnosis for this admission?: Yes Plan: Continues to nebulizer treatments (2) Pneumonia of both lower lobes Qualifiers: Pneumonia type: due to unspecified organism Qualified Code(s): J18.1 - Lobar pneumonia, unspecified organism Is this a current diagnosis for this admission?: Yes Plan: Continues to IV antibiotic (3) Acute hypercapnic respiratory failure Is this a current diagnosis for this admission?: Yes Plan: Currently all stable (4) Protein-calorie undernutrition Qualifiers: Protein-calorie malnutrition severity: moderate Qualified Code(s): E44.0 - Moderate protein-calorie malnutrition Is this a current diagnosis for this admission?: Yes Plan: High protein diet (5) Cholelithiasis Qualifiers: Cholelithiasis location: gallbladder Cholecystitis presence: without cholecystitis Biliary obstruction: without biliary obstruction Qualified Code(s): K80.20 - Calculus of gallbladder without cholecystitis without obstruction Is this a current diagnosis for this admission?: Yes Plan: Patient is currently asymptomatic's Dr. Laguerre already put a consult for surgery for further opinion - Time Time Spent with patient: 15-24 minutes Medications reviewed and adjusted accordingly: Yes Anticipated discharge: Other Within: Other - Plan Summary Plan Summary: If the patient's p.o. intake is fair will cut down the IV fluid continues IV antibiotic
--- NOTE | 2018-09-11 16:38 | PDOC CONSULTATION ---
Consultation Consult Date: 09/11/18 Consult reason:: gallstone History of Present Illness Admission Date/PCP: 09/08/18 03:35 LINETTE FELIPE MD Patient complains of: abdominal pains History of Present Illness: ZAY KNIGHT is a 68 year old femalewith COPD was transfered from [facility] for severe RUQ pains with SOB. Work up showed bilateral lobar pneumonia and dilated gallbladder with gallstone but no evidence of acute cholecystitis. Being treated for pneumonia but still not able to eat because of persistent nausea which has been ongoing past 2 weeks. Also still with RUQ pains but improving. History of AICD placed in 2004 in [facility] for heart failure. Due to have AICD battery replacement this year in [facility]. Past Medical History Cardiac Medical History: Reports: Atrial Fibrillation, Congestive Heart Failure, Hypertension, Other - Non-ischemic cardiomyopathy Pulmonary Medical History: Reports: Chronic Obstructive Pulmonary Disease (COPD) Psychiatric Medical History: Reports: Depression Past Surgical History Past Surgical History: Reports: Pacemaker Social History Lives with: Shelter Smoking Status: Former Smoker Last Time Smoked: 28 days ago Frequency of Alcohol Use: None Hx Recreational Drug Use: No Drugs: None Hx Prescription Drug Abuse: No - Advance Directive Resuscitation Status: Full Code Family History Family History: Reviewed & Not Pertinent Parental Family History Reviewed: Yes Children Family History Reviewed: No Sibling(s) Family History Reviewed.: No Medication/Allergy Home Medications: Acetaminophen [Tylenol 325 mg Tablet] 650 mg PO Q4HP PRN 09/08/18 Albuterol Sulfate [Proair Hfa Inhalation Aerosol 8.5 gm Mdi] 2 puff IH Q4HP PRN 09/08/18 Aspirin [Ecotrin 81 mg EC Tablet] 81 mg PO DAILY 09/08/18 Buspirone HCl [Buspar 10 mg Tablet] 10 mg PO Q12 09/08/18 Furosemide [Lasix 20 mg Tablet] 20 mg PO DAILY 09/08/18 Gabapentin [Neurontin 300 mg Capsule] 300 mg PO Q8 09/08/18 Ipratropium/Albuterol Sulfate [Duoneb 3 ml Ampul] 3 ml NEB RTQ4 09/08/18 Metoprolol Succinate [Toprol Xl 25 mg Tab.sr] 25 mg PO DAILY 09/08/18 Multivit-Min/Iron/Folic/Lutein [Centrum Silver Women Tablet] 1 each PO DAILY 09/08/18 Prednisone [Deltasone 10 mg Tablet] 10 mg PO DAILY 09/08/18 Sertraline HCl [Zoloft 50 mg Tablet] 100 mg PO DAILY 09/08/18 Spironolactone [Aldactone 25 mg Tablet] 25 mg PO DAILY 09/08/18 Allergies/Adverse Reactions: codeine Allergy (Verified 11/20/17 16:24) Review of Systems Constitutional: PRESENT: chills, fever(s) Eyes: PRESENT: other - no visual/hearing changes Cardiovascular: PRESENT: as per HPI, dyspnea on exertion Respiratory: PRESENT: dyspnea Gastrointestinal: PRESENT: abdominal pain, nausea Genitourinary: PRESENT: other - no dysuria Physical Exam Vital Signs: Temp Pulse Resp BP Pulse Ox 97.9 F 106 H 18 100/51 L 96 09/11/18 12:00 09/11/18 14:00 09/11/18 12:14 09/11/18 12:00 09/11/18 12:14 Intake & Output 09/10/18 09/11/18 09/12/18 06:59 06:59 06:59 Intake Total 1823 1725 750 Output Total 600 Balance 1823 1725 150 Weight 54.1 kg 55.1 kg General appearance: PRESENT: mild distress Head exam: PRESENT: atraumatic Eye exam: PRESENT: conjunctiva pink Mouth exam: PRESENT: moist Neck exam: PRESENT: full ROM Respiratory exam: PRESENT: decreased breath sounds Cardiovascular exam: PRESENT: RRR Pulses: PRESENT: normal radial pulses Vascular exam: PRESENT: normal capillary refill GI/Abdominal exam: PRESENT: soft, tenderness - RUQ and epigastric area Rectal exam: PRESENT: deferred Extremities exam: PRESENT: full ROM Musculoskeletal exam: PRESENT: full ROM Neurological exam: PRESENT: alert, oriented to person, oriented to place, oriented to time, oriented to situation Psychiatric exam: PRESENT: appropriate affect Skin exam: PRESENT: normal color, warm Results Laboratory Results: 09/11/18 05:08 09/11/18 05:08 09/11/18 09/11/18 05:08 05:08 WBC 8.2 RBC 3.20 L Hgb 8.9 L Hct 26.8 L MCV 84 MCH 27.9 MCHC 33.3 RDW 14.3 H Plt Count 233 Seg Neutrophils % 74.5 Lymphocytes % 12.6 L Monocytes % 11.3 Eosinophils % 1.1 Basophils % 0.5 Absolute Neutrophils 6.1 Absolute Lymphocytes 1.0 Absolute Monocytes 0.9 Absolute Eosinophils 0.1 Absolute Basophils 0.0 Sodium 139.1 Potassium 4.4 Chloride 106 Carbon Dioxide 28 Anion Gap 5 BUN 15 Creatinine 0.62 Est GFR ( Amer) > 60 Est GFR (Non-Af Amer) > 60 Glucose 89 Calcium 9.1 Total Bilirubin 0.4 AST 17 ALT 28 Alkaline Phosphatase 49 Total Protein 5.7 L Albumin 3.2 L 09/08/18 09/08/18 09/08/18 00:39 05:08 05:08 Creatine Kinase 51 CK-MB (CK-2) Troponin I 0.036 0.113 09/08/18 05:08 Creatine Kinase CK-MB (CK-2) 2.73 Troponin I Impressions: Chest X-Ray 09/08/18 00:42 IMPRESSION: No acute cardiopulmonary findings. Abdomen Ultrasound 09/08/18 02:36 IMPRESSION: Cholelithiasis without cholecystitis. Assessment & Plan - Time Time Spent: 30 to 50 Minutes - Inpatient Certification Medical Necessity: Need for IV Antibiotics, Need for Surgery - Plan Summary Plan Summary: Has symptomatic gallstone but high risk for surgery If continues to have persistent nausea may need biliary drainage by IR Observe next 24-48 hrs
[2018-09-11] MEDS: SODIUM CHLORIDE NASAL SPRAY 44 ML NASL SCH (17:00)
[2018-09-12] MEDS: IPRATROPIUM/ALBUTEROL 0.5-2.5 MG/3 ML AMPUL NEB SCH ×6 (00:02→19:59)
[2018-09-12] MEDS: GABAPENTIN 300 MG CAPSULE PO SCH ×3 (05:27→21:25)
[2018-09-12] MEDS: LEVOFLOXACIN 750 MG/D5W RTU 750 MG/150 ML RTUPB IV SCH (07:28)
[2018-09-12] MEDS: SERTRALINE HCL 50 MG TABLET PO SCH (09:17)
[2018-09-12] MEDS: CEFEPIME HCL 2 GM in DEXTROSE 5%-WATER 50 ML IV SCH ×2 (09:17→21:25)
[2018-09-12] MEDS: MULTIVIT-STRESS FORMULA/ZINC TABLET PO SCH (09:17)
[2018-09-12] MEDS: BUSPIRONE HCL 10 MG TABLET PO SCH ×2 (09:17→21:25)
[2018-09-12] MEDS: ASPIRIN 81 MG TABLET, ENT COATED PO SCH (09:17)
[2018-09-12] MEDS: SPIRONOLACTONE 25 MG TABLET PO SCH (09:17)
[2018-09-12] MEDS: METOPROLOL SUCCINATE 25 MG TAB.SR.24H PO SCH (09:17)
[2018-09-12] MEDS: ENOXAPARIN SODIUM INJ 40 MG/0.4 ML DISP.SYRIN SUBCUT SCH (09:18)
[2018-09-12] MEDS: SODIUM CHLORIDE NASAL SPRAY 44 ML NASL SCH ×2 (09:18→17:29)
--- NOTE | 2018-09-12 10:28 | PDOC PROGRESS REPORT ---
Subjective Progress Note for:: 09/12/18 Subjective:: Patient seen by the general surgery and suggest patients probably need a gallbladder drain due to the symptomatic gallstones Patient is denied any chest pain to than any shortness of the breath Reason For Visit: BILATERAL LOWER LOBE PNEUMONIA Physical Exam Vital Signs: Temp Pulse Resp BP Pulse Ox 98.0 F 106 H 24 H 107/52 L 98 09/12/18 08:00 09/12/18 08:00 09/12/18 08:00 09/12/18 08:00 09/12/18 08:00 Intake & Output 09/11/18 09/12/18 09/13/18 06:59 06:59 06:59 Intake Total 1725 2150 150 Output Total 2524 Balance 1725 -374 150 Weight 55.1 kg 53 kg General appearance: PRESENT: no acute distress, well-developed, well-nourished Head exam: PRESENT: atraumatic, normocephalic Eye exam: PRESENT: conjunctiva pink, EOMI, PERRLA. ABSENT: scleral icterus Ear exam: PRESENT: normal external ear exam Mouth exam: PRESENT: moist, tongue midline Neck exam: PRESENT: full ROM. ABSENT: carotid bruit, JVD, lymphadenopathy, thyromegaly Respiratory exam: PRESENT: clear to auscultation maury Cardiovascular exam: PRESENT: RRR. ABSENT: diastolic murmur, rubs, systolic murmur Vascular exam: PRESENT: normal capillary refill GI/Abdominal exam: PRESENT: normal bowel sounds, soft, tenderness. ABSENT: distended, guarding, mass, organolmegaly, rebound Rectal exam: PRESENT: deferred Musculoskeletal exam: PRESENT: ambulatory Neurological exam: PRESENT: alert, awake, oriented to person, oriented to place, oriented to time, oriented to situation, CN II-XII grossly intact. ABSENT: motor sensory deficit Psychiatric exam: PRESENT: appropriate affect, normal mood. ABSENT: homicidal ideation, suicidal ideation Skin exam: PRESENT: dry, intact, warm. ABSENT: cyanosis, rash Results Laboratory Results: 09/11/18 05:08 09/11/18 05:08 09/08/18 09/08/18 09/08/18 00:39 05:08 05:08 Creatine Kinase 51 CK-MB (CK-2) Troponin I 0.036 0.113 09/08/18 05:08 Creatine Kinase CK-MB (CK-2) 2.73 Troponin I Impressions: Chest X-Ray 09/08/18 00:42 IMPRESSION: No acute cardiopulmonary findings. Abdomen Ultrasound 09/08/18 02:36 IMPRESSION: Cholelithiasis without cholecystitis. Assessment & Plan - Diagnosis (1) Chronic obstructive pulmonary disease Qualifiers: COPD type: unspecified COPD Qualified Code(s): J44.9 - Chronic obstructive pulmonary disease, unspecified Is this a current diagnosis for this admission?: Yes Plan: Continues to nebulizer treatments (2) Pneumonia of both lower lobes Qualifiers: Pneumonia type: due to unspecified organism Qualified Code(s): J18.1 - Lobar pneumonia, unspecified organism Is this a current diagnosis for this admission?: Yes Plan: Continues to IV antibiotic (3) Acute hypercapnic respiratory failure Is this a current diagnosis for this admission?: Yes Plan: Currently all stable (4) Protein-calorie undernutrition Qualifiers: Protein-calorie malnutrition severity: moderate Qualified Code(s): E44.0 - Moderate protein-calorie malnutrition Is this a current diagnosis for this admission?: Yes Plan: High protein diet (5) Cholelithiasis Qualifiers: Cholelithiasis location: gallbladder Cholecystitis presence: without cholecystitis Biliary obstruction: without biliary obstruction Qualified Code(s): K80.20 - Calculus of gallbladder without cholecystitis without obstruction Is this a current diagnosis for this admission?: Yes Plan: Symptomatic gallstone We will schedule the interventional radiology drainage tomorrow - Time Time Spent with patient: 15-24 minutes Medications reviewed and adjusted accordingly: Yes Anticipated discharge: SNF Within: Other - Plan Summary Plan Summary: continue to current medications
[2018-09-12] MEDS: NORMAL SALINE 1000 ML 1,000 ML IV PRN ×2 (12:14→21:25)
--- NOTE | 2018-09-12 15:45 | PDOC PROGRESS REPORT ---
Subjective Progress Note for:: 09/12/18 Subjective:: Patient tolerated most of her lunch; she complains of nausea for [address] scan ultrasonography demonstrated distended gallbladder with stones. Reason For Visit: BILATERAL LOWER LOBE PNEUMONIA Physical Exam Vital Signs: Temp Pulse Resp BP Pulse Ox 98.0 F 105 H 18 103/46 L 96 09/12/18 11:04 09/12/18 14:00 09/12/18 11:54 09/12/18 11:04 09/12/18 11:54 Intake & Output 09/11/18 09/12/18 09/13/18 06:59 06:59 06:59 Intake Total 1725 2150 1913 Output Total 2524 Balance 1725 -374 1913 Weight 55.1 kg 53 kg General appearance: PRESENT: no acute distress, other - Patient is chronically short of breath. GI/Abdominal exam: PRESENT: other - Abdomen is soft not distended there is some tenderness in the right upper quadrant. Results Laboratory Results: 09/11/18 05:08 09/11/18 05:08 09/08/18 09/08/18 09/08/18 00:39 05:08 05:08 Creatine Kinase 51 CK-MB (CK-2) Troponin I 0.036 0.113 09/08/18 05:08 Creatine Kinase CK-MB (CK-2) 2.73 Troponin I Impressions: Chest X-Ray 09/08/18 00:42 IMPRESSION: No acute cardiopulmonary findings. Abdomen Ultrasound 09/08/18 02:36 IMPRESSION: Cholelithiasis without cholecystitis. Assessment & Plan - Diagnosis (1) Cholelithiasis Qualifiers: Cholelithiasis location: gallbladder Cholecystitis presence: without cholecystitis Biliary obstruction: without biliary obstruction Qualified Code(s): K80.20 - Calculus of gallbladder without cholecystitis without obstruction Is this a current diagnosis for this admission?: Yes Plan: Impression: Symptomatic cholelithiasis with cholecystitis; subacute; slightly improved but not resolved symptoms on intravenous antibiotics. Recommendations: 1. Patient's multiple comorbidities, particularly end-stage COPD, under general anesthetic for laparoscopic cholecystectomy risk for postoperative ventilatory dependency. Patient is not interested in being on the ventilator. She is a full code although I am uncertain as to whether she understands what that entails. 2. I think it would be reasonable test radiology tomorrow to place a perc utaneous cystostomy we will hold Lovenox. I explained the above to the patient and nursing staff.
[2018-09-13] MEDS: IPRATROPIUM/ALBUTEROL 0.5-2.5 MG/3 ML AMPUL NEB SCH ×6 (00:08→20:20)
[2018-09-13] MEDS: GABAPENTIN 300 MG CAPSULE PO SCH ×4 (05:17→22:43)
[2018-09-13] MEDS: LEVOFLOXACIN 750 MG/D5W RTU 750 MG/150 ML RTUPB IV SCH (08:12)
[2018-09-13 10:07] LABS: ABSOLUTE EOSINOPHILS # (AUTO) 0.1 10^3/uL (0.0-0.6); ABSOLUTE LYMPHOCYTES (AUTO) 0.8 10^3/uL (0.5-4.7); ABSOLUTE MONOCYTES (AUTO) 0.9 10^3/uL (0.1-1.4); ABSOLUTE NEUT (AUTO) 6.6 10^3/uL (1.7-8.2); BASOPHILS % (AUTO) 0.4 % (0-2); EOSINOPHILS % (AUTO) 0.7 % (0-6); HEMATOCRIT 27.9 % (36.0-47.0); HEMOGLOBIN 9.4 g/dL (12.0-15.5); LYMPHOCYTES % (AUTO) 9.6 % (13-45); MEAN CORPUSCULAR HGB CONC 33.7 g/dL (32.0-36.0); MEAN CORPUSCULAR VOLUME 83 fl (80-97); MONOCYTES % (AUTO) 10.8 % (3-13); PLATELET COUNT 245 10^3/uL (150-450); RED BLOOD COUNT 3.36 10^6/uL (3.72-5.28); RED CELL DISTRIBUTION WIDTH 14.4 % (11.5-14.0); SEGMENTED NEUTROPHILS % (AUTO) 78.5 % (42-78); TOTAL CELLS COUNTED % (AUTO) 100 %; WHITE BLOOD COUNT 8.4 10^3/uL (4.0-10.5)
[2018-09-13 10:29] LABS: ALANINE AMINOTRANSFERASE 23 U/L (9-52); ALBUMIN 3.3 g/dL (3.5-5.0); ALKALINE PHOSPHATASE 49 U/L (38-126); ANION GAP 6 (5-19); ASPARTATE AMINO TRANSFERASE 15 U/L (14-36); BILIRUBIN,DIRECT 0.2 mg/dL (0.0-0.4); BILIRUBIN,TOTAL 0.3 mg/dL (0.2-1.3); BLOOD UREA NITROGEN 14 mg/dL (7-20); CARBON DIOXIDE 32 mmol/L (22-30); CHLORIDE 101 mmol/L (98-107); GLUCOSE 106 mg/dL (75-110); POTASSIUM 4.4 mmol/L (3.6-5.0); SODIUM 139.2 mmol/L (137-145); TOTAL PROTEIN 5.9 g/dL (6.3-8.2)
[2018-09-13] MEDS: ASPIRIN 81 MG TABLET, ENT COATED PO SCH (10:47)
[2018-09-13] MEDS: SERTRALINE HCL 50 MG TABLET PO SCH (11:03)
[2018-09-13] MEDS: SPIRONOLACTONE 25 MG TABLET PO SCH (11:03)
[2018-09-13] MEDS: CEFEPIME HCL 2 GM in DEXTROSE 5%-WATER 50 ML IV SCH ×2 (11:04→22:43)
[2018-09-13] MEDS: METOPROLOL SUCCINATE 25 MG TAB.SR.24H PO SCH (11:04)
[2018-09-13] MEDS: MULTIVIT-STRESS FORMULA/ZINC TABLET PO SCH (11:04)
[2018-09-13] MEDS: BUSPIRONE HCL 10 MG TABLET PO SCH ×2 (11:04→22:43)
[2018-09-13] MEDS: SODIUM CHLORIDE NASAL SPRAY 44 ML NASL SCH ×2 (11:04→18:06)
--- NOTE | 2018-09-13 12:58 | PDOC PROGRESS REPORT ---
Subjective Progress Note for:: 09/13/18 Subjective:: r/o cholecystitis Reason For Visit: BILATERAL LOWER LOBE PNEUMONIA abdominal pain , r/o cholecysytitis Physical Exam Vital Signs: Temp Pulse Resp BP Pulse Ox 97.9 F 94 16 107/48 L 97 09/13/18 07:54 09/13/18 11:29 09/13/18 11:29 09/13/18 07:54 09/13/18 11:29 Intake & Output 09/12/18 09/13/18 09/14/18 06:59 06:59 06:59 Intake Total 2150 3720 200 Output Total 2524 1800 Balance -374 1920 200 Weight 53 kg 51.9 kg General appearance: PRESENT: no acute distress Head exam: PRESENT: normocephalic GI/Abdominal exam: PRESENT: soft - no further abd pain Results Laboratory Results: 09/13/18 09:45 09/13/18 09:45 09/13/18 09/13/18 09:45 09:45 WBC 8.4 RBC 3.36 L Hgb 9.4 L Hct 27.9 L MCV 83 MCH 28.0 MCHC 33.7 RDW 14.4 H Plt Count 245 Seg Neutrophils % 78.5 H Lymphocytes % 9.6 L Monocytes % 10.8 Eosinophils % 0.7 Basophils % 0.4 Absolute Neutrophils 6.6 Absolute Lymphocytes 0.8 Absolute Monocytes 0.9 Absolute Eosinophils 0.1 Absolute Basophils 0.0 Sodium 139.2 Potassium 4.4 Chloride 101 Carbon Dioxide 32 H Anion Gap 6 BUN 14 Creatinine 0.61 Est GFR ( Amer) > 60 Est GFR (Non-Af Amer) > 60 Glucose 106 Calcium 9.0 Total Bilirubin 0.3 AST 15 ALT 23 Alkaline Phosphatase 49 Total Protein 5.9 L Albumin 3.3 L 09/08/18 17:15 Sputum Gram Stain - Final 09/08/18 17:15 Sputum Sputum Culture - Final GREATLY REDUCED NORMAL RODRICK 09/08/18 02:52 Blood Blood Culture - Final NO GROWTH IN 5 DAYS 09/08/18 00:39 Blood Blood Culture - Final NO GROWTH IN 5 DAYS 09/08/18 09/08/18 09/08/18 00:39 05:08 05:08 Creatine Kinase 51 CK-MB (CK-2) Troponin I 0.036 0.113 09/08/18 05:08 Creatine Kinase CK-MB (CK-2) 2.73 Troponin I Impressions: Chest X-Ray 09/08/18 00:42 IMPRESSION: No acute cardiopulmonary findings. Abdomen Ultrasound 09/08/18 02:36 IMPRESSION: Cholelithiasis without cholecystitis. Assessment & Plan - Plan Summary Plan Summary: pt had concerns about cholecystostomy tube states her nausea stopped after she stopped taking multivitamins this am she has no ruq pain hida scan was normal suggesting no evidence of cholecystitis will hold off on cholecystostomy tube please reconsult surgery if necessary.
--- NOTE | 2018-09-13 13:05 | RADIOLOGY REPORT (SQ) ---
EXAM DESCRIPTION: NM HIDA SCAN COMPLETED DATE/TIME: 09/13/2018 12:42 pm REASON FOR STUDY: cholecystitis COMPARISON: None. RADIONUCLIDE AND DOSE: DOSAGE RADIONUCLIDE: 5.41 millicuries Tc99m Mebrofenin. DOSAGE MORPHINE: Not required. The route of agent administration: Intravenous TECHNIQUE: Serial imaging right upper quadrant up to 60 minutes following injection of radionuclide. Patient imaged AP and Right Lateral. LIMITATIONS: None. FINDINGS: LIVER: Normal visualization without areas of photopenia. INTRA-HEPATIC BILE DUCTS: Temporal visualization normal. No dilatation. COMMON BILE DUCT: Normal without dilatation or delayed visualization. GALLBLADDER: Normal visualization. OTHER: No other significant finding. IMPRESSION: NORMAL STUDY WITHOUT CYSTIC OR COMMON DUCT OBSTRUCTION. TECHNICAL DOCUMENTATION: JOB ID: [id number] [employer]- All Rights Reserved Reading location - IP/workstation name: [email or web address]
[2018-09-13] MEDS: NORMAL SALINE 1000 ML 1,000 ML IV PRN (15:41)
--- NOTE | 2018-09-13 20:03 | PDOC TRANSFER SUMMARY ---
General - Admit/Disc Date/PCP Admission Date/Primary Care Provider: 09/08/18 03:35 LINETTE FELIPE MD Discharge Date: 09/13/18 - Discharge Diagnosis (1) Pneumonia of both lower lobes Is this a current diagnosis for this admission?: Yes (2) Chronic obstructive pulmonary disease Is this a current diagnosis for this admission?: Yes (3) Protein-calorie undernutrition Is this a current diagnosis for this admission?: Yes (4) Cholelithiasis Is this a current diagnosis for this admission?: Yes - Additional Information Resuscitation Status: Full Code Prescriptions: Fluticasone/Umeclidin/Vilanter [Trelegy 100-62.5-25 Mcg Ellipta 14 Dose/Dpi] 1 each IH DAILY #90 inhaler Home Medications: Acetaminophen [Tylenol 325 mg Tablet] 650 mg PO Q4HP PRN 09/08/18 Albuterol Sulfate [Proair HFA Inhalation Aerosol 8.5 gm MDI] 2 puff IH Q4HP PRN 09/08/18 Aspirin [Ecotrin 81 mg EC Tablet] 81 mg PO DAILY 09/08/18 Buspirone HCl [Buspar 10 mg Tablet] 10 mg PO Q12 09/08/18 Gabapentin [Neurontin 300 mg Capsule] 300 mg PO Q8 09/08/18 Ipratropium/Albuterol Sulfate [Duoneb 3 ml Ampul] 3 ml NEB RTQ4 09/08/18 Metoprolol Succinate [Toprol Xl 25 mg Tab.sr] 25 mg PO DAILY 09/08/18 Multivit-Min/Iron/Folic/Lutein [Centrum Silver Women Tablet] 1 each PO DAILY 09/08/18 Sertraline HCl [Zoloft 50 mg Tablet] 100 mg PO DAILY 09/08/18 Spironolactone [Aldactone 25 mg Tablet] 25 mg PO DAILY 09/08/18 Fluticasone/Umeclidin/Vilanter [Trelegy 100-62.5-25 Mcg Ellipta 14 Dose/Dpi] 1 each IH DAILY #90 inhaler 09/13/18 History of Present Illness Admission Date/PCP: 09/08/18 03:35 LINETTE FELIPE MD History of Present Illness: ZAY KNIGHT is a 68 year old female, She has a history of very severe ch ronic obstructive pulmonary disease, She was recently discharged from this hospital on August 12, 2018 when she was admitted for the management of acute hypercapnic respiratory failure, she is presently residing at the jail at [place], she was transferred from the jail to the emergency room last night for evaluation of acute shortness of breath, abdominal pain fever and chills. In the emergency room CT chest with IV contrast was obtained, it demonstrated emphysematous,hyperinflation also found was bilateral lower lobe pneumonia Hospital Course Hospital Course: Patient was admitted for the management of bilateral pneumonia, she was treated with IV antibiotic, Levaquin and cefepime.She also was found to have cholelithiasis, she was not symptomatic from this disease, HIDA scan was done it was negative for cholecystitis she was seen by the surgeon it was felt that it was not necessary to do surgery at this time Physical Exam Vital Signs: Temp Pulse Resp BP Pulse Ox 97.7 F 106 H 20 126/59 H 99 09/13/18 19:40 09/13/18 19:40 09/13/18 19:40 09/13/18 19:40 09/13/18 19:40 Intake & Output 09/12/18 09/13/18 09/14/18 06:59 06:59 06:59 Intake Total 2150 3720 1674 Output Total 2524 1800 Balance -374 1920 1674 Weight 53 kg 51.9 kg General appearance: PRESENT: no acute distress Head exam: PRESENT: atraumatic, normocephalic Eye exam: PRESENT: PERRLA Ear exam: PRESENT: normal external ear exam Mouth exam: PRESENT: moist, tongue midline Respiratory exam: PRESENT: clear to auscultation maury Cardiovascular exam: PRESENT: RRR, +S1, +S2 Vascular exam: PRESENT: normal capillary refill GI/Abdominal exam: PRESENT: normal bowel sounds, soft Rectal exam: PRESENT: deferred Extremities exam: PRESENT: full ROM Neurological exam: PRESENT: alert, CN II-XII grossly intact Psychiatric exam: PRESENT: appropriate affect, normal mood Skin exam: PRESENT: dry, intact, warm Results Laboratory Results: 09/13/18 09:45 09/13/18 09:45 09/13/18 09/13/18 09:45 09:45 WBC 8.4 RBC 3.36 L Hgb 9.4 L Hct 27.9 L MCV 83 MCH 28.0 MCHC 33.7 RDW 14.4 H Plt Count 245 Seg Neutrophils % 78.5 H Lymphocytes % 9.6 L Monocytes % 10.8 Eosinophils % 0.7 Basophils % 0.4 Absolute Neutrophils 6.6 Absolute Lymphocytes 0.8 Absolute Monocytes 0.9 Absolute Eosinophils 0.1 Absolute Basophils 0.0 Sodium 139.2 Potassium 4.4 Chloride 101 Carbon Dioxide 32 H Anion Gap 6 BUN 14 Creatinine 0.61 Est GFR ( Amer) > 60 Est GFR (Non-Af Amer) > 60 Glucose 106 Calcium 9.0 Total Bilirubin 0.3 AST 15 ALT 23 Alkaline Phosphatase 49 Total Protein 5.9 L Albumin 3.3 L 09/08/18 17:15 Sputum Gram Stain - Final 09/08/18 17:15 Sputum Sputum Culture - Final GREATLY REDUCED NORMAL RODRICK 09/08/18 02:52 Blood Blood Culture - Final NO GROWTH IN 5 DAYS 09/08/18 00:39 Blood Blood Culture - Final NO GROWTH IN 5 DAYS 09/08/18 09/08/18 09/08/18 00:39 05:08 05:08 Creatine Kinase 51 CK-MB (CK-2) Troponin I 0.036 0.113 09/08/18 05:08 Creatine Kinase CK-MB (CK-2) 2.73 Troponin I Impressions: Chest X-Ray 09/08/18 00:42 IMPRESSION: No acute cardiopulmonary findings. Abdomen Ultrasound 09/08/18 02:36 IMPRESSION: Cholelithiasis without cholecystitis. Hepatobiliary Scan Nuclear Medicine 09/13/18 00:00 IMPRESSION: NORMAL STUDY WITHOUT CYSTIC OR COMMON DUCT OBSTRUCTION. Qualifiers - * PATIENT BEING DISCHARGED WITH ANY OF THE FOLLOWING DIAGNOSIS: No
[2018-09-14] MEDS: IPRATROPIUM/ALBUTEROL 0.5-2.5 MG/3 ML AMPUL NEB SCH ×4 (00:06→12:03)
[2018-09-14] MEDS: GABAPENTIN 300 MG CAPSULE PO SCH (05:54)
[2018-09-14] MEDS: NORMAL SALINE 1000 ML 1,000 ML IV PRN (08:38)
[2018-09-14] MEDS: LEVOFLOXACIN 750 MG/D5W RTU 750 MG/150 ML RTUPB IV SCH (08:39)
[2018-09-14] MEDS: BUSPIRONE HCL 10 MG TABLET PO SCH (10:46)
[2018-09-14] MEDS: SERTRALINE HCL 50 MG TABLET PO SCH (10:46)
[2018-09-14] MEDS: ASPIRIN 81 MG TABLET, ENT COATED PO SCH (10:46)
[2018-09-14] MEDS: CEFEPIME HCL 2 GM in DEXTROSE 5%-WATER 50 ML IV SCH (10:46)
[2018-09-14] MEDS: SPIRONOLACTONE 25 MG TABLET PO SCH (10:47)
[2018-09-14] MEDS: SODIUM CHLORIDE NASAL SPRAY 44 ML NASL SCH (10:47)
[2018-09-14] MEDS: MULTIVIT-STRESS FORMULA/ZINC TABLET PO SCH (10:47)
[2018-09-14] MEDS: METOPROLOL SUCCINATE 25 MG TAB.SR.24H PO SCH (10:48)
[2018-09-14 12:48] VITALS: BP 111/51
== END 2018-09-14 14:25 | DRG 194 ==
LOC: ER 00:32 → EH 03:35 → 3W 06:01
PROVIDERS: ADMIT Internal Medicine; ATTEND Internal Medicine
PROC: 5A09457 Assistance with Respiratory Ventilation, 24-96 Consecutive Hours, Continuous Positive Airway Pressure (ICD-10-PCS; principal; 2018-09-08)
PROC: 3E0F73Z Introduction of Anti-inflammatory into Respiratory Tract, Via Natural or Artificial Opening (ICD-10-PCS; 2018-09-08)
DX: J18.1 Lobar pneumonia, unspecified organism (principal); J44.0 Chronic obstructive pulmonary disease with (acute) lower respiratory infection; I42.8 Other cardiomyopathies; E44.0 Moderate protein-calorie malnutrition; K82.1 Hydrops of gallbladder; Z68.1 Body mass index [BMI] 19.9 or less, adult; K80.20 Calculus of gallbladder without cholecystitis without obstruction; I10 Essential (primary) hypertension; F32.9 Major depressive disorder, single episode, unspecified; I48.91 Unspecified atrial fibrillation; Z95.0 Presence of cardiac pacemaker; Z87.891 Personal history of nicotine dependence; Z79.899 Other long term (current) drug therapy; Z79.82 Long term (current) use of aspirin; Z88.6 Allergy status to analgesic agent
CPT/HCPCS: 36415; 71045; 71260; 74177; 76705; 78226; 80053; 81001; 82550; 82553; 82803; 83036; 83605; 84484; 85025; 85610; 87040; 87070; 87086; 87205; 93005; 93010; 94640; 94660; 96361; 96374; 99291; A9537; J0692; J1650; J1956; J2543; J2930; J3370; J3490; J7030; J7040; J7620; Q9969

== ENCOUNTER 2018-11-12 16:37 | Inpatient (IN) | payer MEDICARE, MEDICAID ==
[2018-11-12] MEDS ORDERED: IPRATROPIUM/ALBUTEROL 0.5-2.5 MG/3 ML AMPUL NEB ONE ×2 (16:44→19:30)
[2018-11-12] MEDS ORDERED: METHYLPREDNISOLONE INJ 125 MG/2 ML SDV IV ONE ×2 (16:44→19:30)
--- NOTE | 2018-11-12 16:46 | ER Document Report ---
ED Medical Screen (RME) - General Chief Complaint: Shortness Of Breath Stated Complaint: SHORT OF BREATH Time Seen by Provider: 11/12/18 16:42 Primary Care Provider: LINETTE FELIPE MD [Primary Care Provider] - Follow up as needed Mode of Arrival: Medic Information source: Patient TRAVEL OUTSIDE OF THE [place] IN LAST 30 DAYS: No - HPI Patient complains to provider of: SOB Notes: 11/12/18 16:45 Patient here with complaints of shortness of breath. Patient has a history of COPD and is on 2 L nasal cannula all the time. Last couple of days she has been having increasing shortness of breath. She has vomited once. No fever. She states she is coughing up green sputum. Exam Increased work of breathing with pursed lipped breathing. Diminished breath sounds with prolonged expiratory phase. Heart sounds normal. Plan CBC, CMP, troponin, CPK, CK-MB, chest x-ray, EKG, DuoNeb, Solu-Medrol. An initial examination was made on the patient as part of the triage process, and it was determined a more comprehensive evaluation was necessary. Initial labs were ordered and patient was transferred to another provider in the ED who assumed care and finished evaluation and plan. - Related Data Allergies/Adverse Reactions: codeine Allergy (Verified 11/20/17 16:24) Past Medical History - Past Medical History Cardiac Medical History: Reports: Hx Atrial Fibrillation, Hx Congestive Heart Failure, Hx Hypertension Pulmonary Medical History: Reports: Hx COPD Renal/ Medical History: Denies: Hx Peritoneal Dialysis Psychiatric Medical History: Reports: Hx Depression Past Surgical History: Reports: Hx Cardiac Surgery - ICD, Hx Pacemaker - Immunizations Hx Diphtheria, Pertussis, Tetanus Vaccination: Yes Doctor's Discharge - Discharge Referrals: LINETTE FELIPE MD [Primary Care Provider] - Follow up as needed
--- NOTE | 2018-11-12 17:38 | RADIOLOGY REPORT (SQ) ---
EXAM DESCRIPTION: CHEST SINGLE VIEW COMPLETED DATE/TIME: 11/12/2018 5:25 pm REASON FOR STUDY: SOB COMPARISON: 09/08/2018 EXAM PARAMETERS: NUMBER OF VIEWS: One view. TECHNIQUE: Single frontal radiographic view of the chest acquired. RADIATION DOSE: NA LIMITATIONS: None. FINDINGS: LUNGS AND PLEURA: Hyperexpansion of the lungs. Small right pleural effusion. Ill-defined opacification in the lower lobes. MEDIASTINUM AND HILAR STRUCTURES: No masses. Contour normal. HEART AND VASCULAR STRUCTURES: Borderline cardiomegaly. No pulmonary edema. BONES: No acute findings. HARDWARE: Pacemaker/defibrillator. OTHER: No other significant finding. IMPRESSION: Borderline cardiomegaly without pulmonary edema. Cannot exclude a limited pneumonia in either lung base. Small right pleural effusion. TECHNICAL DOCUMENTATION: JOB ID: [id number] [employer]- All Rights Reserved Reading location - IP/workstation name: [email or web address]
[2018-11-12] MEDS ORDERED: ONDANSETRON HCL INJ/PF 4 MG/2 ML SDV IV ONE (18:50)
[2018-11-12] MEDS ORDERED: METHYLPREDNISOLONE INJ 125 MG/2 ML SDV ONE (19:01)
[2018-11-12 19:04] LABS: HEMATOCRIT 33.9 % (36.0-47.0); HEMOGLOBIN 10.7 g/dL (12.0-15.5); MEAN CORPUSCULAR HEMOGLOBIN 25.7 pg (27.0-33.4); MEAN CORPUSCULAR HGB CONC 31.5 g/dL (32.0-36.0); MEAN CORPUSCULAR VOLUME 82 fl (80-97); PLATELET COUNT 306 10^3/uL (150-450); RED BLOOD COUNT 4.15 10^6/uL (3.72-5.28); RED CELL DISTRIBUTION WIDTH 16.2 % (11.5-14.0)
[2018-11-12 19:18] LABS: ABSOLUTE LYMPHOCYTES# (MANUAL) 0.6 10^3/uL (0.5-4.7); ABSOLUTE MONOCYTES # (MANUAL) 0.5 10^3/uL (0.1-1.4); BASOPHILS % (MANUAL) 0 % (0-2); EOSINOPHILS % (MANUAL) 0 % (0-6); LYMPHOCYTES % (MANUAL) 4 % (13-45); MONOCYTES % (MANUAL) 3 % (3-13); NUCLEATED RED BLOOD CELLS 1 /100 WBC (0); PLATELET COMMENT ADEQUATE; SEGMENTED NEUTROPHILS % (MAN) 93 % (42-78); TOTAL CELLS COUNTED 100
[2018-11-12 19:22] LABS: ALKALINE PHOSPHATASE 87 U/L (38-126); ANION GAP 14 (5-19); ANISOCYTOSIS 1+; BILIRUBIN,DIRECT 0.5 mg/dL (0.0-0.4); BILIRUBIN,TOTAL 0.9 mg/dL (0.2-1.3); BLOOD UREA NITROGEN 45 mg/dL (7-20); CALCIUM 9.3 mg/dL (8.4-10.2); CARBON DIOXIDE 25 mmol/L (22-30); CHLORIDE 92 mmol/L (98-107); CREATINE KINASE 64 U/L (30-135); GLUCOSE 112 mg/dL (75-110); HYPOCHROMASIA SLIGHT; OVALOCYTES 1+; POLYCHROMASIA SLIGHT; POTASSIUM 5.5 mmol/L (3.6-5.0); SODIUM 131.1 mmol/L (137-145); TARGET CELLS SLIGHT; TEAR DROP CELLS SLIGHT; TOTAL PROTEIN 7.1 g/dL (6.3-8.2)
[2018-11-12 19:34] LABS: ALANINE AMINOTRANSFERASE 1056 U/L (9-52); ASPARTATE AMINO TRANSFERASE 838 U/L (14-36); CREATINE KINASE MB 2.75 ng/mL (<4.55); TROPONIN I 0.015 ng/mL
[2018-11-12] MEDS ORDERED: ALBUTEROL SULFATE 0.083% NEB 2.5 MG/3 ML AMPUL NEB ONE (21:40)
--- NOTE | 2018-11-12 21:45 | ER Document Report ---
ED General - General Chief Complaint: Shortness Of Breath Stated Complaint: SHORT OF BREATH Time Seen by Provider: 11/12/18 16:42 Primary Care Provider: LINETTE FELIPE MD [Primary Care Provider] - Follow up as needed Mode of Arrival: Medic Notes: 68-year-old female sent in from [facility] for increasing shortness of breath over the past several days. Patient states that she has been feeling sick for the past several days with increasing shortness of breath and a cough productive of "sticky green sputum" patient also complains of epigastric and periumbilical abdominal pain with nausea for the past several days associated with some vomiting today. Denies any fevers. Patient does note that she noticed her defibrillator has been beeping since yesterday, it was inserted in 2004 and has not had the battery changed. TRAVEL OUTSIDE OF THE [place] IN LAST 30 DAYS: No - Related Data Allergies/Adverse Reactions: codeine Allergy (Verified 11/20/17 16:24) Past Medical History - General Information source: Patient - Social History Smoking Status: Former Smoker Frequency of alcohol use: None Drug Abuse: None Lives with: Intermediate Family History: Reviewed & Not Pertinent Patient has suicidal ideation: No Patient has homicidal ideation: No - Past Medical History Cardiac Medical History: Reports: Hx Atrial Fibrillation, Hx Congestive Heart Failure, Hx Hypertension Pulmonary Medical History: Reports: Hx COPD Renal/ Medical History: Denies: Hx Peritoneal Dialysis Psychiatric Medical History: Reports: Hx Depression Past Surgical History: Reports: Hx Bowel Surgery, Hx Cardiac Surgery - ICD, Hx Pacemaker - Immunizations Hx Diphtheria, Pertussis, Tetanus Vaccination: Yes Hx Pneumococcal Vaccination: 07/13/12 Review of Systems - Review of Systems Constitutional: See HPI, Chills, Malaise EENT: No symptoms reported Cardiovascular: No symptoms reported. denies: Chest pain Respiratory: See HPI, Cough, Short of breath, Sputum Gastrointestinal: See HPI, Abdominal pain, Nausea, Vomiting -: Yes All other systems reviewed and negative Physical Exam - Vital signs Vitals: Temp Pulse Resp BP Pulse Ox 97.4 F 111 H 28 H 118/76 98 11/12/18 16:51 11/12/18 16:51 11/12/18 16:51 11/12/18 16:51 11/12/18 16:51 Interpretation: Tachycardic, Tachypneic - Notes Notes: GENERAL: Alert, interacts well. Pursed lip breathing, appears mildly short of breath. HEAD: Normocephalic, atraumatic EYES: Pupils equal, round and reactive to light, extraocular movements intact. ENT: Oral mucosa moist, tongue midline. NECK: Full range of motion, supple, trachea midline. LUNGS: Clear to auscultation bilaterally, no wheezes, rales or rhonchi, however the patient is having pursed lip breathing. She has received multiple breathing treatments before she saw me. Appears to be in mild respiratory distress. HEART: Tachycardic rate, regular rhythm, no murmurs, gallops, rubs. ABDOMEN: Soft, periumbilically tender to palpation, liver is enlarged, nondistended, bowel sounds present in all 4 quadrants. EXTREMITIES: Moves all 4 extremities spontaneously, no edema, radial and dorsalis pedis pulses 2/4 bilaterally. No cyanosis. NEUROLOGICAL: Alert and oriented x3, normal speech. PSYCH: Normal mood, normal affect. SKIN: Warm, Dry, normal turgor, no rashes or lesions noted. Course - Re-evaluation Re-evalutation: 11/13/18 01:33 After one breathing treatment the patient feels much better and is significantly improved on examination, has not been hypoxic while she has been here using her normal home oxygen, CBC shows leukocytosis of 15.0, mild anemia with hemoglobin 10.7, platelets are normal, venous blood gas is unremarkable, CMP shows low sodium at 131.1, potassium elevated at 5.5 without any peak T waves on EKG, acute renal failure with a BUN of 45 and a creatinine 1.27, lactic acid is elevated at 2.9, will be repeated per sepsis protocol, direct bilirubin is only mildly elevated at 0.5, total bilirubin is normal, AST elevated 838, ALT elevated at 1056. Ultrasound of the abdomen is ordered to look for any signs of obstruction or infection, there are stones without any signs of obstruction or infection however there is some surrounding ascites versus effusion around the liver. Chest x-ray shows possible bibasilar pneumonia but radiology is really uncertain states that is difficult to tell. Troponin is negative x2, lipase is normal. Discussed case with Dr. Amaro who is covering for Dr. Felipe and he agrees to accept the patient to his service for further work-up to investigate the elevated LFTs, elevated lactic acid and renal failure. Patient will be hydrated, treated with Zosyn and he has requested to be sent for a CT scan of the abdomen and pelvis and placed on IMCU. Patient is agreeable to this plan. 11/13/18 01:34 Interrogation of the pacer and defibrillator does not review any acute cardiac events although it does state that the pacemaker reached its explant date on November 08. This is not an acute finding that requires intervention today, patient will be instructed to follow-up with rug hooker hand as an outpatient after discharge from the hospital. No indication for transfer for this at this time. - Vital Signs Vital signs: Temp Pulse Resp BP Pulse Ox 97.9 F 111 H 24 H 102/69 98 11/12/18 22:00 11/12/18 16:51 11/13/18 01:01 11/13/18 01:01 11/13/18 01:01 - Laboratory Result Diagrams: 11/12/18 18:48 11/12/18 18:48 Laboratory results interpreted by me: 11/12/18 11/12/18 11/12/18 18:48 18:48 22:25 WBC 15.0 H Hgb 10.7 L Hct 33.9 L MCH 25.7 L MCHC 31.5 L RDW 16.2 H Seg Neuts % (Manual) 93 H Lymphocytes % (Manual) 4 L Abs Neuts (Manual) 14.0 H Carbonic Acid 1.01 L ABG pCO2 33.4 L ABG pO2 114.1 H ABG O2 Saturation 98.2 H Sodium 131.1 L Potassium 5.5 H Chloride 92 L BUN 45 H Creatinine 1.27 H Est GFR ( Amer) 51 L Est GFR (Non-Af Amer) 42 L Glucose 112 H Lactic Acid Direct Bilirubin 0.5 H AST 838 H ALT 1056 H 11/12/18 22:28 WBC Hgb Hct MCH MCHC RDW Seg Neuts % (Manual) Lymphocytes % (Manual) Abs Neuts (Manual) Carbonic Acid ABG pCO2 ABG pO2 ABG O2 Saturation Sodium Potassium Chloride BUN Creatinine Est GFR ( Amer) Est GFR (Non-Af Amer) Glucose Lactic Acid 2.9 H Direct Bilirubin AST ALT - EKG Interpretation by Me Additional EKG results interpreted by me: 11/13/18 01:33 EKG shows tachycardia at a rate of 106, atrially sensed ventricularly paced rhythm without any ST segment elevations or depressions, there are isolated T wave inversions in leads I and aVL, no significant change from prior EKG per my interpretation. Discharge - Discharge Clinical Impression: Elevated LFTs Pneumonia of both lower lobes Qualifiers: Pneumonia type: due to unspecified organism Qualified Code(s): J18.1 - Lobar pneumonia, unspecified organism Cholelithiasis Qualifiers: Cholelithiasis location: gallbladder Cholecystitis presence: without cholecystitis Biliary obstruction: without biliary obstruction Qualified Code(s): K80.20 - Calculus of gallbladder without cholecystitis without obstruction Acute renal failure Qualifiers: Acute renal failure type: unspecified Qualified Code(s): N17.9 - Acute kidney failure, unspecified Condition: Fair Disposition: ADMITTED INPATIENT Admitting Provider: [facility] Admitted: IMCU Referrals: LINETTE FELIPE MD [Primary Care Provider] - Follow up as needed
[2018-11-12 22:50] LABS: ARTERIAL BLOOD BASE EXCESS -3.6 mmol/L; ARTERIAL BLOOD FIO2 3L; ARTERIAL BLOOD H2CO3 1.01 mmol/L (1.05-1.35); ARTERIAL BLOOD HCO3 20.4 mmol/L (20-24); ARTERIAL BLOOD O2 SATURATION 98.2 % (94-98); ARTERIAL BLOOD PCO2 33.4 mmHg (35-45); ARTERIAL BLOOD PO2 114.1 mmHg (80-100); ARTERIAL BLOOD TOTAL CO2 21.4 mmol/L (21-25)
--- NOTE | 2018-11-12 23:54 | RADIOLOGY REPORT (SQ) ---
CLINICAL HISTORY: epigastric pain, elevated LFTs COMPARISON: None. TECHNIQUE: US ABDOMEN DOPPLER LIMITED on 11/12/2018 9:40 PM CDT FINDINGS: Liver is normal in echotexture. Common bile duct measures 3 mm. Gallbladder is normally distended without wall thickening. There is a calcified gallstone. There is suggestion of a tiny gallbladder wall cyst. Right kidney measures 10 cm and contains several small approximately 1 cm cyst. There is trace fluid along the liver. IMPRESSION: Trace perihepatic ascites versus trace pleural effusion on the right. Cholelithiasis without cholecystitis.
[2018-11-13] MEDS ORDERED: NORMAL SALINE 1000 ML 1,000 ML IV ONE (00:45)
[2018-11-13] MEDS ORDERED: PIPERACILLIN/TAZOBACTAM 4.5 GM VIAL IV ONE (01:30)
[2018-11-13] MEDS ORDERED: NORMAL SALINE 1000 ML 1,000 ML IV PRN ×3 (01:46→11:07)
[2018-11-13] MEDS ORDERED: ONDANSETRON HCL INJ/PF 4 MG/2 ML SDV IV PRN ×2 (01:46→06:30)
[2018-11-13] MEDS ORDERED: CEFEPIME 2 GM/D5W RTU 2 GM/50 ML RTUPB IV ONE (02:30)
--- NOTE | 2018-11-13 04:51 | RADIOLOGY REPORT (SQ) ---
CT abdomen and pelvis with contrast on 11/13/2018 at 4:02 AM CLINICAL INDICATION: Periumbilical abdominal pain TECHNIQUE: Multiple axial images are obtained throughout the abdomen and pelvis following the administration of IV and oral contrast. This exam was performed according to our departmental dose-optimization program, which includes automated exposure control, adjustment of the mA and/or kV according to patient size and/or use of iterative reconstruction technique. Total DLP is 506.37 mGy*cm. COMPARISON: 09/08/2018 FINDINGS: Abdomen: There is a small right pleural effusion with trace left pleural effusion and mild bibasilar atelectasis. New periportal edema is noted in the liver. Gallstones are noted within a distended gallbladder with gallbladder wall thickening. There is reflux of contrast into the IVC and hepatic veins indicating elevated right heart pressure. Small bilateral renal cysts are noted. Solid abdominal organs are otherwise unremarkable. Small amount of free fluid is noted in the abdomen. There is no abdominal adenopathy. There is no free air within the abdomen. The abdominal portion of the GI tract is unremarkable. Pelvis: Small amount of free fluid is noted in the pelvis. Pelvic organs appear unremarkable by CT. There is no pelvic adenopathy. Pelvic portion of the GI tract is unremarkable. Degenerative changes are noted in the spine. There is mild levoscoliosis of the lower lumbar spine. IMPRESSION: 1. Cholelithiasis with gallbladder wall thickening raising question of acute cholecystitis. 2. Extensive periportal edema which is relatively nonspecific but in correlation with gallbladder wall thickening the combination of findings raises a question of hepatitis and recommend clinical correlation and correlation with serologies. 3. Right greater than left pleural effusions with mild bibasilar atelectasis. 4. Small amount of ascites in the abdomen and pelvis which also could be the cause of the patient's gallbladder wall thickening.
--- NOTE | 2018-11-13 06:38 | PDOC CONSULTATION ---
Consultation Consult Date: 11/13/18 Attending physician:: Prem Consult reason:: r/o cholecystitis History of Present Illness Admission Date/PCP: 11/13/18 01:45 LINETTE FELIPE MD History of Present Illness: ZAY KNIGHT is a 68 year old female from [facility] for increasing shortness of breath over the past several days. Patient states that she has been feeling sick for the past several days with increasing shortness of breath and a cough productive of "sticky green sputum" patient also complains of epigastric and periumbilical abdominal pain with nausea for the past several days associated with some vomiting today. Denies any fever was hospitalized in late aug/early september for similiar sxs. a cholcystostomy tube was suggested. was not done as pt felt better and eventually was discharged to [facility] pt now with similar sxs. Past Medical History Cardiac Medical History: Reports: Atrial Fibrillation, Congestive Heart Failure, Hypertension Pulmonary Medical History: Reports: Chronic Obstructive Pulmonary Disease (COPD) Psychiatric Medical History: Reports: Depression Past Surgical History Past Surgical History: Reports: Pacemaker Social History Lives with: Alf Smoking Status: Former Smoker Number of Years Smokin Last Time Smoked: 08/07/2018 Frequency of Alcohol Use: None Hx Recreational Drug Use: No Drugs: None Hx Prescription Drug Abuse: No Family History Family History: Reviewed & Not Pertinent Parental Family History Reviewed: No Children Family History Reviewed: Unknown Sibling(s) Family History Reviewed.: Unknown Medication/Allergy Home Medications: Acetaminophen [Tylenol 325 mg Tablet] 650 mg PO Q4HP PRN 09/08/18 Albuterol Sulfate [Proair HFA Inhalation Aerosol 8.5 gm MDI] 2 puff IH Q4HP PRN 09/08/18 Aspirin [Ecotrin 81 mg EC Tablet] 81 mg PO DAILY 09/08/18 Buspirone HCl [Buspar 10 mg Tablet] 10 mg PO Q12 09/08/18 Gabapentin [Neurontin 300 mg Capsule] 300 mg PO Q8 09/08/18 Ipratropium/Albuterol Sulfate [Duoneb 3 ml Ampul] 3 ml NEB RTQ4 09/08/18 Metoprolol Succinate [Toprol Xl 25 mg Tab.sr] 25 mg PO DAILY 09/08/18 Multivit-Min/Iron/Folic/Lutein [Centrum Silver Women Tablet] 1 each PO DAILY 09/08/18 Sertraline HCl [Zoloft 50 mg Tablet] 100 mg PO DAILY 09/08/18 Spironolactone [Aldactone 25 mg Tablet] 25 mg PO DAILY 09/08/18 Fluticasone/Umeclidin/Vilanter [Trelegy 100-62.5-25 Mcg Ellipta 14 Dose/Dpi] 1 each IH DAILY #90 inhaler 09/13/18 Allergies/Adverse Reactions: codeine Allergy (Verified 11/20/17 16:24) Review of Systems Constitutional: PRESENT: headache(s), weakness, weight loss Eyes: PRESENT: other. ABSENT: as per HPI, visual disturbances Ears: ABSENT: as per HPI, hearing changes, other Nose, Mouth, and Throat: PRESENT: other - dry Breasts: ABSENT: as per HPI, other Cardiovascular: PRESENT: dyspnea on exertion, orthropnea, palpitations, other - epigastric pain Respiratory: PRESENT: cough, dyspnea Gastrointestinal: PRESENT: other - c/o some abd bloating and pain in mid abd and ruq Genitourinary: ABSENT: as per HPI, difficulty urinating, dysuria, hematuria, nocturia, other Musculoskeletal: PRESENT: muscle weakness Integumentary: ABSENT: as per HPI, diaphoresis, erythema, lesions, pruritus, rash, wounds, other Neurological: ABSENT: as per HPI, abnormal gait, abnormal movements, abnormal speech, confusion, convulsions, dizziness, focal weakness, frequent falls, lack of coordination, memory loss, numbness, paresthesias, restless legs, syncope, tingling, tremor(s), vertigo, weakness, other Psychiatric: ABSENT: as per HPI, anxiety, depression, hallucinations, homidical ideation, suicidal ideation, other Endocrine: ABSENT: as per HPI, cold intolerance, flushing, heat intolerance, menstrual abnormalities, polydipsia, polyphagia, polyuria, other Hematologic/Lymphatic: ABSENT: as per HPI, easy bleeding, easy bruising, lymphadenopathy, other Allergic/Immunologic: ABSENT: as per HPI, seasonal rhinorrhea, other Physical Exam Vital Signs: Temp Pulse Resp BP Pulse Ox 97.3 F 105 H 18 100/65 100 11/13/18 04:27 11/13/18 04:30 11/13/18 04:30 11/13/18 04:30 11/13/18 04:30 Intake & Output 11/11/18 11/12/18 11/13/18 06:59 06:59 06:59 Intake Total 1000 Balance 1000 Weight 58.9 kg General appearance: PRESENT: mild distress Head exam: PRESENT: normocephalic Eye exam: PRESENT: EOMI Ear exam: PRESENT: normal external ear exam Mouth exam: PRESENT: dry mucosa Neck exam: PRESENT: full ROM Respiratory exam: PRESENT: accessory muscle use, decreased breath sounds, retraction Cardiovascular exam: PRESENT: RRR, tachycardia Pulses: PRESENT: normal radial pulses, normal femoral pulses GI/Abdominal exam: PRESENT: hypoactive bowel sounds, tenderness Rectal exam: PRESENT: deferred Extremities exam: PRESENT: full ROM Musculoskeletal exam: PRESENT: full ROM Neurological exam: PRESENT: alert, awake Psychiatric exam: PRESENT: appropriate affect Skin exam: PRESENT: dry Results Laboratory Results: 11/12/18 18:48 11/12/18 18:48 11/12/18 11/12/18 11/12/18 18:48 18:48 18:48 WBC 15.0 H RBC 4.15 Hgb 10.7 L Hct 33.9 L MCV 82 MCH 25.7 L MCHC 31.5 L RDW 16.2 H Plt Count 306 Seg Neutrophils % Not Reportable Lymphocytes % Not Reportable Monocytes % Not Reportable Eosinophils % Not Reportable Basophils % Not Reportable Absolute Neutrophils Not Reportable Absolute Lymphocytes Not Reportable Absolute Monocytes Not Reportable Absolute Eosinophils Not Reportable Absolute Basophils Not Reportable Carbonic Acid HCO3/H2CO3 Ratio ABG pH ABG pCO2 ABG pO2 ABG HCO3 ABG O2 Saturation ABG Base Excess FiO2 Sodium 131.1 L Potassium 5.5 H Chloride 92 L Carbon Dioxide 25 Anion Gap 14 BUN 45 H Creatinine 1.27 H Est GFR ( Amer) 51 L Est GFR (Non-Af Amer) 42 L Glucose 112 H Lactic Acid Calcium 9.3 Total Bilirubin 0.9 AST 838 H ALT 1056 H Alkaline Phosphatase 87 Total Protein 7.1 Albumin 4.0 Lipase 30.5 11/12/18 11/12/18 11/13/18 22:25 22:28 02:30 WBC RBC Hgb Hct MCV MCH MCHC RDW Plt Count Seg Neutrophils % Lymphocytes % Monocytes % Eosinophils % Basophils % Absolute Neutrophils Absolute Lymphocytes Absolute Monocytes Absolute Eosinophils Absolute Basophils Carbonic Acid 1.01 L HCO3/H2CO3 Ratio 20:1 ABG pH 7.40 ABG pCO2 33.4 L ABG pO2 114.1 H ABG HCO3 20.4 ABG O2 Saturation 98.2 H ABG Base Excess -3.6 FiO2 3L Sodium Potassium Chloride Carbon Dioxide Anion Gap BUN Creatinine Est GFR ( Amer) Est GFR (Non-Af Amer) Glucose Lactic Acid 2.9 H 3.9 H Calcium Total Bilirubin AST ALT Alkaline Phosphatase Total Protein Albumin Lipase 11/12/18 11/12/18 11/12/18 18:48 18:48 21:00 Creatine Kinase 64 CK-MB (CK-2) 2.75 Troponin I 0.015 < 0.012 Impressions: Chest X-Ray 11/12/18 16:42 IMPRESSION: Borderline cardiomegaly without pulmonary edema. Cannot exclude a limited pneumonia in either lung base. Small right pleural effusion. Abdomen Ultrasound 11/12/18 21:40 IMPRESSION: Trace perihepatic ascites versus trace pleural effusion on the right. Cholelithiasis without cholecystitis. Abdomen/Pelvis CT 11/13/18 00:00 IMPRESSION: 1. Cholelithiasis with gallbladder wall thickening raising question of acute cholecystitis. 2. Extensive periportal edema which is relatively nonspecific but in correlation with gallbladder wall thickening the combination of findings raises a question of hepatitis and recommend clinical correlation and correlation with serologies. 3. Right greater than left pleural effusions with mild bibasilar atelectasis. 4. Small amount of ascites in the abdomen and pelvis which also could be the cause of the patient's gallbladder wall thickening. Assessment & Plan - Diagnosis (1) Cholelithiasis Qualifiers: Cholelithiasis location: gallbladder Cholecystitis presence: with cholecystitis Cholecystitis acuity: acute and chronic Biliary obstruction: without biliary obstruction Qualified Code(s): K80.12 - Calculus of gallbladder with acute and chronic cholecystitis without obstruction Is this a current diagnosis for this admission?: Yes (3) COPD with acute exacerbation Is this a current diagnosis for this admission?: Yes - Plan Summary Plan Summary: pt returns to hospital from [facility] with increasing sob and cough and epigatric pain dx of bilat lower lobe pneumonia and elevated wbc and elevated lft's nl bili.\\ ct obtained in er shows rt pleural effusion and thickened gb wall I suspect she has acute/chronic cholecystitis. As noted from her last admission, she is a very high risk surgery candidate. 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 as suggested last admission she should be treated with a cholecystostomy tube, for decompression of her gallbladder cont iv abx and monitor her lft's Discussed with Dr Amaro, he will see her later this am and arrange for interventional radiology to do cholecystostomy tube today or possibly transfer pt to higher level of care for cholecystostomy tube placement.
[2018-11-13] MEDS: IPRATROPIUM/ALBUTEROL 0.5-2.5 MG/3 ML AMPUL NEB SCH ×3 (08:20→16:11)
[2018-11-13 09:37] LABS: HEMATOCRIT 34.1 % (36.0-47.0); HEMOGLOBIN 10.7 g/dL (12.0-15.5); MEAN CORPUSCULAR HGB CONC 31.3 g/dL (32.0-36.0); MEAN CORPUSCULAR VOLUME 83 fl (80-97); PLATELET COUNT 284 10^3/uL (150-450); RED BLOOD COUNT 4.11 10^6/uL (3.72-5.28); RED CELL DISTRIBUTION WIDTH 16.4 % (11.5-14.0); WHITE BLOOD COUNT 13.1 10^3/uL (4.0-10.5)
[2018-11-13 09:42] LABS: BLOOD UREA NITROGEN 52 mg/dL (7-20); CALCIUM 8.6 mg/dL (8.4-10.2); CARBON DIOXIDE 18 mmol/L (22-30); CHLORIDE 92 mmol/L (98-107); GLUCOSE 156 mg/dL (75-110); SODIUM 130.2 mmol/L (137-145)
[2018-11-13 09:45] LABS: ANION GAP 20 (5-19)
[2018-11-13 09:47] LABS: POTASSIUM 6.4 mmol/L (3.6-5.0)
--- NOTE | 2018-11-13 09:58 | PDOC H&P ---
History of Present Illness Admission Date/PCP: 11/13/18 01:45 LINETTE FELIPE MD Patient complains of: Shortness of the breath History of Present Illness: ZAY KNIGHT is a 68 year old female Is a 68-year-old female with a premium retirement for the increasing the shortness of the breath over the past several days. Patient stated that she has been feeling sick for the past several days with increasing shortness of breath and a cough productivity with the sticky green sputum's patient also complains some epigastric and periumbilical abdominal pain and nausea but the past several days. Patient is denied any fever Patient also have a defibrillator due to the cardiomyopathy was inserted in 2004 at and better is not been changed since Patient was admitting in the hospital last month because of the nausea vomiting and the patient at this point seen by the surgery because of the abdominal pain with the rule out cholecystitis ultrasound was supposed to cholelithiasis but no cholecystitis at the times and HIDA scan was also normal and at this time so deferred to not do any surgery Today's patient's LFT was elevated AST was 800 and an ALT is a 1500 Patient also underwent a CT scan of the abdomen and pelvis which suggests the questionable cholecystitis and also edema surrounding the liver area Patient's defibrillator is also not working At this point the ER physicians and sister admit the patient's for further evaluation and she will talk to the surgeon Surgeons call me and so he cannot operate the patient's patients needs to go to the tertiary center Discussed with the son regarding the patient's current condition and bedside and called [facility] Past Medical History Cardiac Medical History: Reports: Atrial Fibrillation, Congestive Heart Failure, Hypertension Pulmonary Medical History: Reports: Chronic Obstructive Pulmonary Disease (COPD) GI Medical History: Reports: Gastroesophageal Reflux Disease Psychiatric Medical History: Reports: Depression Past Surgical History Past Surgical History: Reports: Pacemaker Social History Lives with: Detention Smoking Status: Former Smoker Number of Years Smokin Last Time Smoked: 08/07/2018 Frequency of Alcohol Use: None Hx Recreational Drug Use: No Drugs: None Hx Prescription Drug Abuse: No Family History Family History: Reviewed & Not Pertinent Parental Family History Reviewed: Yes Children Family History Reviewed: Yes Sibling(s) Family History Reviewed.: Yes Medication/Allergy Home Medications: Acetaminophen [Tylenol 325 mg Tablet] 650 mg PO Q4HP PRN 09/08/18 Albuterol Sulfate [Proair HFA Inhalation Aerosol 8.5 gm MDI] 2 puff IH Q4HP PRN 09/08/18 Aspirin [Ecotrin 81 mg EC Tablet] 81 mg PO DAILY 09/08/18 Buspirone HCl [Buspar 10 mg Tablet] 10 mg PO Q12 09/08/18 Gabapentin [Neurontin 300 mg Capsule] 300 mg PO Q8 09/08/18 Ipratropium/Albuterol Sulfate [Duoneb 3 ml Ampul] 3 ml NEB RTQ4 09/08/18 Metoprolol Succinate [Toprol Xl 25 mg Tab.sr] 25 mg PO DAILY 09/08/18 Multivit-Min/Iron/Folic/Lutein [Centrum Silver Women Tablet] 1 each PO DAILY 09/08/18 Sertraline HCl [Zoloft 50 mg Tablet] 100 mg PO DAILY 09/08/18 Spironolactone [Aldactone 25 mg Tablet] 25 mg PO DAILY 09/08/18 Fluticasone/Umeclidin/Vilanter [Trelegy 100-62.5-25 Mcg Ellipta 14 Dose/Dpi] 1 each IH DAILY #90 inhaler 09/13/18 Allergies/Adverse Reactions: codeine Allergy (Verified 11/20/17 16:24) Review of Systems Constitutional: ABSENT: chills, fever(s), headache(s), weight gain, weight loss Eyes: ABSENT: visual disturbances Ears: ABSENT: hearing changes Cardiovascular: PRESENT: dyspnea on exertion. ABSENT: chest pain, edema, orthropnea, palpitations Respiratory: PRESENT: cough. ABSENT: hemoptysis Gastrointestinal: ABSENT: abdominal pain, constipation, diarrhea, hematemesis, hematochezia, nausea, vomiting Genitourinary: ABSENT: dysuria, hematuria Musculoskeletal: ABSENT: joint swelling Integumentary: ABSENT: rash, wounds Neurological: ABSENT: abnormal gait, abnormal speech, confusion, dizziness, focal weakness, syncope Psychiatric: ABSENT: anxiety, depression, homidical ideation, suicidal ideation Endocrine: ABSENT: cold intolerance, heat intolerance, menstrual abnormalities, polydipsia, polyuria Hematologic/Lymphatic: ABSENT: easy bleeding, easy bruising, lymphadenopathy Physical Exam Vital Signs: Temp Pulse Resp BP Pulse Ox 97.3 F 105 H 20 93/56 L 98 11/13/18 07:53 11/13/18 08:20 11/13/18 08:20 11/13/18 07:53 11/13/18 08:20 Intake & Output 11/12/18 11/13/18 11/14/18 06:59 06:59 06:59 Intake Total 1050 Balance 1050 Weight 58.9 kg General appearance: PRESENT: no acute distress, well-developed, well-nourished Head exam: PRESENT: atraumatic, normocephalic Eye exam: PRESENT: conjunctiva pink, EOMI, PERRLA. ABSENT: scleral icterus Ear exam: PRESENT: normal external ear exam Mouth exam: PRESENT: moist, tongue midline Neck exam: PRESENT: full ROM. ABSENT: carotid bruit, JVD, lymphadenopathy, thyromegaly Respiratory exam: PRESENT: clear to auscultation maury Cardiovascular exam: PRESENT: RRR. ABSENT: diastolic murmur, rubs, systolic murmur Vascular exam: PRESENT: normal capillary refill GI/Abdominal exam: PRESENT: normal bowel sounds, soft, tenderness. ABSENT: distended, guarding, mass, organolmegaly, rebound Rectal exam: PRESENT: deferred Extremities exam: ABSENT: pedal edema Neurological exam: PRESENT: alert, awake, oriented to person, oriented to place, oriented to time, oriented to situation, CN II-XII grossly intact. ABSENT: motor sensory deficit Psychiatric exam: PRESENT: appropriate affect, normal mood. ABSENT: homicidal ideation, suicidal ideation Skin exam: PRESENT: dry, intact, warm. ABSENT: cyanosis, rash Results Laboratory Results: 11/12/18 11/12/18 11/12/18 18:48 18:48 18:48 WBC 15.0 H RBC 4.15 Hgb 10.7 L Hct 33.9 L MCV 82 MCH 25.7 L MCHC 31.5 L RDW 16.2 H Plt Count 306 Seg Neutrophils % Not Reportable Lymphocytes % Not Reportable Monocytes % Not Reportable Eosinophils % Not Reportable Basophils % Not Reportable Absolute Neutrophils Not Reportable Absolute Lymphocytes Not Reportable Absolute Monocytes Not Reportable Absolute Eosinophils Not Reportable Absolute Basophils Not Reportable Carbonic Acid HCO3/H2CO3 Ratio ABG pH ABG pCO2 ABG pO2 ABG HCO3 ABG O2 Saturation ABG Base Excess FiO2 Sodium 131.1 L Potassium 5.5 H Chloride 92 L Carbon Dioxide 25 Anion Gap 14 BUN 45 H Creatinine 1.27 H Est GFR ( Amer) 51 L Est GFR (Non-Af Amer) 42 L Glucose 112 H Lactic Acid Calcium 9.3 Total Bilirubin 0.9 AST 838 H ALT 1056 H Alkaline Phosphatase 87 Total Protein 7.1 Albumin 4.0 Lipase 30.5 11/12/18 11/12/18 11/13/18 22:25 22:28 02:30 WBC RBC Hgb Hct MCV MCH MCHC RDW Plt Count Seg Neutrophils % Lymphocytes % Monocytes % Eosinophils % Basophils % Absolute Neutrophils Absolute Lymphocytes Absolute Monocytes Absolute Eosinophils Absolute Basophils Carbonic Acid 1.01 L HCO3/H2CO3 Ratio 20:1 ABG pH 7.40 ABG pCO2 33.4 L ABG pO2 114.1 H ABG HCO3 20.4 ABG O2 Saturation 98.2 H ABG Base Excess -3.6 FiO2 3L Sodium Potassium Chloride Carbon Dioxide Anion Gap BUN Creatinine Est GFR ( Amer) Est GFR (Non-Af Amer) Glucose Lactic Acid 2.9 H 3.9 H Calcium Total Bilirubin AST ALT Alkaline Phosphatase Total Protein Albumin Lipase 11/12/18 11/12/18 11/12/18 18:48 18:48 21:00 Creatine Kinase 64 CK-MB (CK-2) 2.75 Troponin I 0.015 < 0.012 Impressions: Chest X-Ray 11/12/18 16:42 IMPRESSION: Borderline cardiomegaly without pulmonary edema. Cannot exclude a limited pneumonia in either lung base. Small right pleural effusion. Abdomen Ultrasound 11/12/18 21:40 IMPRESSION: Trace perihepatic ascites versus trace pleural effusion on the right. Cholelithiasis without cholecystitis. Abdomen/Pelvis CT 11/13/18 00:00 IMPRESSION: 1. Cholelithiasis with gallbladder wall thickening raising question of acute cholecystitis. 2. Extensive periportal edema which is relatively nonspecific but in correlation with gallbladder wall thickening the combination of findings raises a question of hepatitis and recommend clinical correlation and correlation with serologies. 3. Right greater than left pleural effusions with mild bibasilar atelectasis. 4. Small amount of ascites in the abdomen and pelvis which also could be the cause of the patient's gallbladder wall thickening. Assessment & Plan - Diagnosis (1) Acute cholecystitis Is this a current diagnosis for this admission?: Yes Plan: As per discussed with the surgery he suggested patients probably need a further evaluations with the GI and also need interventional radiology And further need a surgery (2) Hyperkalemia Is this a current diagnosis for this admission?: Yes Plan: Will give a Kayexalate D50 and insulin Calcium gluconate (3) Septic shock Is this a current diagnosis for this admission?: Yes Plan: Continues to IV fluid with close monitoring in intensive care units (4) Acute renal failure Qualifiers: Acute renal failure type: unspecified Qualified Code(s): N17.9 - Acute kidney failure, unspecified Is this a current diagnosis for this admission?: Yes Plan: Continues to IV fluid (5) COPD with acute exacerbation Is this a current diagnosis for this admission?: Yes Plan: Continues to nebulizer treatments (6) Protein-calorie undernutrition Qualifiers: Protein-calorie malnutrition severity: moderate Qualified Code(s): E44.0 - Moderate protein-calorie malnutrition Is this a current diagnosis for this admission?: Yes (7) Cardiomyopathy Qualifiers: Cardiomyopathy type: unspecified Qualified Code(s): I42.9 - Cardiomyopathy, unspecified Is this a current diagnosis for this admission?: Yes Plan: Consult the cardiology (8) Defibrillator discharge Plan: Patients need to change the battery - Time Time Spent: Greater than 70 Minutes Critical Time spent with patient: 35 or more minutes Medications reviewed and adjusted accordingly: Yes Anticipated discharge: Tertiary Hospital Within: Other - Inpatient Certification Based on my medical assessment, after consideration of the patient's comorbidities, presenting symptoms, or acuity I expect that the services needed warrant INPATIENT care.: Yes I certify that my determination is in accordance with my understanding of Medicare's requirements for reasonable and necessary INPATIENT services [42 CFR 412.3e].: Yes Medical Necessity: Significant Comorbidiites Make Outpatient Treatment Too Risky, Need For IV Fluids, Need for IV Antibiotics Post Hospital Care: D/C Multi Operation Machine Operator Documentation - Plan Summary Plan Summary: Discussed with the son and the patient on the bedside Discussed with the surgery put the patient in ICU Close monitor
[2018-11-13] MEDS ORDERED: PANTOPRAZOLE SODIUM 40 MG VIAL IV SCH (10:00)
[2018-11-13] MEDS ORDERED: ENOXAPARIN SODIUM INJ 30 MG/0.3 ML DISP.SYRIN SUBCUT SCH (10:00)
--- NOTE | 2018-11-13 11:13 | EKG REPORT ---
SEVERITY:- ABNORMAL ECG - ATRIAL-SENSED VENTRICULAR-PACED RHYTHM : Confirmed by: Viri Polk 13-Nov-2018 11:12:25
--- NOTE | 2018-11-13 11:13 | EKG REPORT ---
SEVERITY:- ABNORMAL ECG - ATRIAL-SENSED VENTRICULAR-PACED RHYTHM : Confirmed by: Viri Polk 13-Nov-2018 11:12:31
[2018-11-13] MEDS ORDERED: DEXTROSE 50%-WATER 25 GM/50 ML DISP.SYRIN IV ONE (11:30)
[2018-11-13] MEDS ORDERED: CALCIUM GLUCONATE 1000 MG/10 ML INJ IV ONE (11:30)
[2018-11-13] MEDS ORDERED: INSULIN REG, HUMAN 100 UNIT/ML 3 ML VIAL (PYX) IV ONE (11:30)
[2018-11-13] MEDS ORDERED: PIPERACILLIN SODIUM/TAZOBACTAM 3.375 GM in NORMAL SALINE 100 ML IV SCH (12:00)
[2018-11-13 12:25] LABS: ALBUMIN 3.7 g/dL (3.5-5.0); ALKALINE PHOSPHATASE 70 U/L (38-126); BILIRUBIN,DIRECT 0.8 mg/dL (0.0-0.4); BLOOD UREA NITROGEN 57 mg/dL (7-20); CALCIUM 8.7 mg/dL (8.4-10.2); CARBON DIOXIDE 17 mmol/L (22-30); CHLORIDE 96 mmol/L (98-107); GLUCOSE 125 mg/dL (75-110); POTASSIUM 5.7 mmol/L (3.6-5.0); SODIUM 132.5 mmol/L (137-145); TOTAL PROTEIN 6.5 g/dL (6.3-8.2)
[2018-11-13 12:35] LABS: ALANINE AMINOTRANSFERASE 1436 U/L (9-52); ANION GAP 20 (5-19); ASPARTATE AMINO TRANSFERASE 1303 U/L (14-36)
[2018-11-13] MEDS ORDERED: DOBUTAMINE HCL/D5W 500 MG/250 ML RTUINJ IV ONE (13:03)
[2018-11-13] MEDS ORDERED: NOREPINEPHRINE BITARTRATE INJ/PF 4 MG/4 ML SDV IV ONE (13:20)
--- NOTE | 2018-11-13 13:39 | Operative Report ---
Nonrecallable Operative Report DATE OF SURGERY: 11/13/18 PREOPERATIVE DIAGNOSIS: copd POSTOPERATIVE DIAGNOSIS: copd OPERATION: central line placement SURGEON: MIKE QUIROZ ANESTHESIA: Local TISSUE REMOVED OR ALTERED: none COMPLICATIONS: none ESTIMATED BLOOD LOSS: 5cc INTRAOPERATIVE FINDINGS: see dictatin PROCEDURE: see dictation
[2018-11-13] MEDS ORDERED: MIDAZOLAM HCL 50 MG/100 ML RTUINJ IV PRN (13:43)
[2018-11-13] MEDS ORDERED: MIDAZOLAM HCL 50 MG/100 ML RTUINJ ONE (13:44)
[2018-11-13] MEDS ORDERED: PROPOFOL 0 MG/0 ML INFUS..BTL IV ONE (13:46)
[2018-11-13 13:59] LABS: ARTERIAL BLOOD BASE EXCESS -9.2 mmol/L; ARTERIAL BLOOD FIO2 2L; ARTERIAL BLOOD H2CO3 0.98 mmol/L (1.05-1.35); ARTERIAL BLOOD O2 SATURATION 89.9 % (94-98); ARTERIAL BLOOD PCO2 32.5 mmHg (35-45); ARTERIAL BLOOD PH 7.31 (7.35-7.45); ARTERIAL BLOOD PO2 61.6 mmHg (80-100)
[2018-11-13] MEDS ORDERED: BENZOCAINE 20% AEROSOL SPRAY 60 GM MM ONE (14:30)
--- NOTE | 2018-11-13 14:38 | PDOC TRANSFER SUMMARY ---
General Admission Date/PCP: 11/13/18 01:45 LINETTE FELIPE MD Transfer Date: 11/13/18 Resuscitation Status: Full Code - Transfer Diagnosis (1) Acute cholecystitis Is this a current diagnosis for this admission?: Yes Diagnosis Summary: As per discussed with the GI no need for ERCP Questionable cholecystitis versus hepatic congestions (2) Hyperkalemia Is this a current diagnosis for this admission?: Yes (3) Septic shock Is this a current diagnosis for this admission?: Yes Diagnosis Summary: The multifocal underlying pneumonia versus cholecystitis (4) Acute renal failure Is this a current diagnosis for this admission?: Yes Diagnosis Summary: continue IV fluid (5) COPD with acute exacerbation Is this a current diagnosis for this admission?: Yes Diagnosis Summary: Continues to nebulizer treatments (6) Protein-calorie undernutrition Is this a current diagnosis for this admission?: Yes (7) Cardiomyopathy Is this a current diagnosis for this admission?: Yes Diagnosis Summary: As per discussed with the cardiology Dr. Martinez patient's EF is low most likely a hepatic congestions from the heart failure (8) Defibrillator discharge Is this a current diagnosis for this admission?: Yes Diagnosis Summary: Patient's defibrillator battery is not working (9) Acute congestive heart failure Is this a current diagnosis for this admission?: Yes - Transfer Medications Home Medications: Acetaminophen [Tylenol 325 mg Tablet] 650 mg PO Q4HP PRN 09/08/18 Albuterol Sulfate [Proair HFA Inhalation Aerosol 8.5 gm MDI] 2 puff IH Q4HP PRN 09/08/18 Aspirin [Ecotrin 81 mg EC Tablet] 81 mg PO DAILY 09/08/18 Buspirone HCl [Buspar 10 mg Tablet] 10 mg PO Q12 09/08/18 Gabapentin [Neurontin 300 mg Capsule] 300 mg PO Q8 09/08/18 Ipratropium/Albuterol Sulfate [Duoneb 3 ml Ampul] 3 ml NEB RTQ4 09/08/18 Metoprolol Succinate [Toprol Xl 25 mg Tab.sr] 25 mg PO DAILY 09/08/18 Multivit-Min/Iron/Folic/Lutein [Centrum Silver Women Tablet] 1 each PO DAILY 09/08/18 Spironolactone [Aldactone 25 mg Tablet] 25 mg PO DAILY 09/08/18 Duloxetine HCl [Cymbalta] 60 mg PO DAILY 11/13/18 Transfer Medications: Current Medications Albuterol/Ipratropium (Duoneb 3 Ml Ampul) 3 ml NEB [id number] ON LICENSE OF [facility] Stop: 12/13/18 07:59 Last Admin: 11/13/18 11:46 Dose: 3 ml Documented by: Enoxaparin Sodium (Lovenox Inj 30 Mg/0.3 Ml Disp.Syrin) 30 mg SUBCUT DAILY ON LICENSE OF [facility] Stop: 12/13/18 09:59 Last Admin: 11/13/18 09:36 Dose: Not Given Documented by: Piperacillin Sod/Tazobactam (Sod 3.375 gm/ Sodium Chloride) 100 mls @ 200 mls/hr IV Q6 ON LICENSE OF [facility] Stop: 11/20/18 11:59 Last Admin: 11/13/18 11:57 Dose: 200 mls/hr, 200 mls/hr Documented by: Sodium Chloride (Nacl 0.9% 1000 Ml Iv Soln) 1,000 mls @ 150 mls/hr IV CONTINUOUS PRN PRN Reason: THIS MED IS NOT "PRN" Stop: 12/13/18 01:45 Ondansetron HCl (Zofran Inj/Pf 4 Mg/2 Ml Sdv) 4 mg IV Q6HP PRN PRN Reason: FOR NAUSEA/VOMITING Stop: 12/13/18 01:45 Last Admin: 11/13/18 08:56 Dose: 4 mg Documented by: Pantoprazole Sodium (Protonix Iv Inj 40 Mg Vial) 40 mg IV Q12 ON LICENSE OF [facility] Stop: 11/16/18 09:59 Last Admin: 11/13/18 09:39 Dose: 40 mg Documented by: - Allergies Allergies/Adverse Reactions: codeine Allergy (Verified 11/20/17 16:24) Hospital Course Hospital Course: This is a 68-year-old female with a history of cardiomyopathy status post defibrillator history of the COPD history of the hypertension's hyperlipidemia history of the malnutrition's currently living in a nursing facility came to the emergency department with increasing shortness of the breath and initial work- up in the ER patients diagnosed with a COPD possible pneumonia and also found elevated LFT and questionable cholecystitis Patient underwent for the ultrasound of the abdomen which showed the cholelithiasis Went for the CT scan of the abdomen and pelvis which raised the question about cholecystitis As per discussed with the GI at [facility] and suggest that no sign for need any ERCP possible hepatic congestions General surgery was consulted and raised the question about the cholecystitis versus hepatic congestions Cardiology was also consulted and suggest most likely heart failure and hepatic congestions Patient also have renal failure and hyperkalemia Patient is treated with the insulin Kayexalate and D50 and albuterol Patient's lactic acid is also elevated Patient was put on a broad-spectrum IV antibiotic Patient's blood pressure systolic is running in the 90 range Patient is giving IV fluid intensive care units At this point patients treated with the sepsis and heart failure and also patient have a defibrillator dysfunctions Discussed with the son on the bedside regarding the patient's current conditions with the poor prognosis Patients get a benefit to the transport in a tertiary center to further evaluate about the cholecystitis versus any hepatic issues and defibrillator issues Physical Exam Vital Signs: Temp Pulse Resp BP Pulse Ox 97.2 F 109 H 24 H 114/73 97 11/13/18 11:40 11/13/18 11:47 11/13/18 11:47 11/13/18 11:40 11/13/18 11:47 Intake & Output 11/12/18 11/13/18 11/14/18 06:59 06:59 06:59 Intake Total 1050 Balance 1050 Weight 58.9 kg General appearance: PRESENT: no acute distress Head exam: PRESENT: atraumatic, normocephalic Eye exam: PRESENT: conjunctiva pink, EOMI, PERRLA. ABSENT: scleral icterus Ear exam: PRESENT: normal external ear exam Mouth exam: PRESENT: moist, tongue midline Neck exam: ABSENT: carotid bruit, JVD, lymphadenopathy, thyromegaly Respiratory exam: PRESENT: clear to auscultation maury. ABSENT: rales, rhonchi, wheezes Cardiovascular exam: PRESENT: RRR. ABSENT: diastolic murmur, rubs, systolic murmur GI/Abdominal exam: PRESENT: normal bowel sounds, soft. ABSENT: distended, guarding, mass, organolmegaly, rebound, tenderness Rectal exam: PRESENT: deferred Extremities exam: PRESENT: full ROM. ABSENT: calf tenderness, clubbing, pedal edema Neurological exam: PRESENT: alert, awake, oriented to person, oriented to place, oriented to time, oriented to situation, CN II-XII grossly intact. ABSENT: motor sensory deficit Psychiatric exam: PRESENT: appropriate affect, normal mood. ABSENT: homicidal ideation, suicidal ideation Skin exam: PRESENT: dry, intact, warm. ABSENT: cyanosis, rash Results Laboratory Results: 11/13/18 06:09 11/12/18 11/12/18 11/12/18 18:48 18:48 18:48 WBC 15.0 H RBC 4.15 Hgb 10.7 L Hct 33.9 L MCV 82 MCH 25.7 L MCHC 31.5 L RDW 16.2 H Plt Count 306 Seg Neutrophils % Not Reportable Lymphocytes % Not Reportable Monocytes % Not Reportable Eosinophils % Not Reportable Basophils % Not Reportable Absolute Neutrophils Not Reportable Absolute Lymphocytes Not Reportable Absolute Monocytes Not Reportable Absolute Eosinophils Not Reportable Absolute Basophils Not Reportable Carbonic Acid HCO3/H2CO3 Ratio ABG pH ABG pCO2 ABG pO2 ABG HCO3 ABG O2 Saturation ABG Base Excess FiO2 Sodium 131.1 L Potassium 5.5 H Chloride 92 L Carbon Dioxide 25 Anion Gap 14 BUN 45 H Creatinine 1.27 H Est GFR ( Amer) 51 L Est GFR (Non-Af Amer) 42 L Glucose 112 H Lactic Acid Calcium 9.3 Total Bilirubin 0.9 AST 838 H ALT 1056 H Alkaline Phosphatase 87 Total Protein 7.1 Albumin 4.0 Lipase 30.5 11/12/18 11/12/18 11/13/18 22:25 22:28 02:30 WBC RBC Hgb Hct MCV MCH MCHC RDW Plt Count Seg Neutrophils % Lymphocytes % Monocytes % Eosinophils % Basophils % Absolute Neutrophils Absolute Lymphocytes Absolute Monocytes Absolute Eosinophils Absolute Basophils Carbonic Acid 1.01 L HCO3/H2CO3 Ratio 20:1 ABG pH 7.40 ABG pCO2 33.4 L ABG pO2 114.1 H ABG HCO3 20.4 ABG O2 Saturation 98.2 H ABG Base Excess -3.6 FiO2 3L Sodium Potassium Chloride Carbon Dioxide Anion Gap BUN Creatinine Est GFR ( Amer) Est GFR (Non-Af Amer) Glucose Lactic Acid 2.9 H 3.9 H Calcium Total Bilirubin AST ALT Alkaline Phosphatase Total Protein Albumin Lipase 11/13/18 11/13/18 11/13/18 06:09 06:09 11:47 WBC 13.1 H RBC 4.11 Hgb 10.7 L Hct 34.1 L MCV 83 MCH 26.0 L MCHC 31.3 L RDW 16.4 H Plt Count 284 Seg Neutrophils % Lymphocytes % Monocytes % Eosinophils % Basophils % Absolute Neutrophils Absolute Lymphocytes Absolute Monocytes Absolute Eosinophils Absolute Basophils Carbonic Acid HCO3/H2CO3 Ratio ABG pH ABG pCO2 ABG pO2 ABG HCO3 ABG O2 Saturation ABG Base Excess FiO2 Sodium 130.2 L Potassium 6.4 H* Chloride 92 L Carbon Dioxide 18 L Anion Gap 20 H BUN 52 H Creatinine 1.51 H Est GFR ( Amer) 41 L Est GFR (Non-Af Amer) 34 L Glucose 156 H Lactic Acid 3.4 H Calcium 8.6 Total Bilirubin AST ALT Alkaline Phosphatase Total Protein Albumin Lipase 11/12/18 11/12/18 11/12/18 18:48 18:48 21:00 Creatine Kinase 64 CK-MB (CK-2) 2.75 Troponin I 0.015 < 0.012 Impressions: Chest X-Ray 11/12/18 16:42 IMPRESSION: Borderline cardiomegaly without pulmonary edema. Cannot exclude a limited pneumonia in either lung base. Small right pleural effusion. Abdomen Ultrasound 11/12/18 21:40 IMPRESSION: Trace perihepatic ascites versus trace pleural effusion on the right. Cholelithiasis without cholecystitis. Abdomen/Pelvis CT 11/13/18 00:00 IMPRESSION: 1. Cholelithiasis with gallbladder wall thickening raising question of acute cholecystitis. 2. Extensive periportal edema which is relatively nonspecific but in correlation with gallbladder wall thickening the combination of findings raises a question of hepatitis and recommend clinical correlation and correlation with serologies. 3. Right greater than left pleural effusions with mild bibasilar atelectasis. 4. Small amount of ascites in the abdomen and pelvis which also could be the cause of the patient's gallbladder wall thickening. Plan Time Spent: Greater than 30 Minutes
--- NOTE | 2018-11-13 15:19 | RADIOLOGY REPORT (SQ) ---
EXAM DESCRIPTION: CHEST SINGLE VIEW COMPLETED DATE/TIME: 11/13/2018 3:05 pm REASON FOR STUDY: Et Tube Placement Ng/ Placement COMPARISON: Earlier exam same date NUMBER OF VIEWS: One view. TECHNIQUE: Single frontal radiographic image of the chest acquired. LIMITATIONS: None. FINDINGS: ENDOTRACHEAL TUBE: Appropriate location, tip approximately 5.1 cm above the level of the c obi. . OTHER SUPPORT DEVICES: Nasogastric catheter tip is beyond the inferior margin of the image over the b driss of the stomach. CHANGES IN RADIOGRAPHIC FINDINGS: None. Stable appearance. HARDWARE: Cardiac defibrillator. OTHER: No other significant finding. IMPRESSION: Tubes and lines in expected position. TECHNICAL DOCUMENTATION: JOB ID: [id number] [employer]- All Rights Reserved Reading location - IP/workstation name: [email or web address]
[2018-11-13 15:23] VITALS: BP 107/40
--- NOTE | 2018-11-13 16:24 | XCELERA REPORT ---
[address] [address] Transthoracic Echocardiogram Report Name: ZAY KNIGHT Age: 68 yrs Gender: Female : 1950 Patient Status: Inpatient Patient Location: ^[facility]^A Study Date: 11/13/2018 10:04 AM Height: 67 in Weight: 129 lb BSA: 1.7 m2 Procedure: A two-dimensional transthoracic echocardiogram with color flow Doppler was performed. Study Quality: Fair. Reason For Study: cardiomyopathy History: cardiomyopathy. Ordering Physician: MANJIT^^^ Performed By: Subhash Woodard Interpretation Summary LV EF is 15% Left ventricular systolic function is severely reduced. There is severe global hypokinesis of the left ventricle. There is no thrombus. Probably No ASD,VSd ,or PFO. The right atrium is mildly dilated. The left atrium is mildly dilated. There is no evidence of mitral valve prolapse. There is no mitral valve stenosis. There is a moderate to severe amount of mitral regurgitation There is no aortic valve stenosis No aortic regurgitation is present. There is no tricuspid stenosis. There is a mild amount of tricuspid regurgitation There is mild pulmonary hypertension by echo RVSP is atleast 39 mm of Hg , with RA mean of > 20. There is no pulmonic valvular stenosis. The inferior vena cava appeared dilated and did not change with respiration (RAP > 20 mmHg) There is no pericardial effusion. MMode/2D Measurements & Calculations RVDd: 3.6 cm LVIDd: 6.7 cm FS: 0.48 % Ao root diam: 2.9 cm IVSd: 0.54 cm LVIDs: 6.7 cm EDV(Teich): 230.3 ml Ao root area: 6.8 cm2 LVPWd: 0.82 cm ESV(Teich): 227.8 ml LA dimension: 4.0 cm EF(Teich): 1.1 % LVOT diam: 1.7 cm LVOT area: 2.3 cm2 Doppler Measurements & Calculations MV E max shelly: MV P1/2t max shelly: Ao V2 max: LV V1 max P.4 cm/sec 103.2 cm/sec 126.4 cm/sec 1.4 mmHg MV A max shelly: MV P1/2t: 50.5 msec Ao max PG: LV V1 max: 33.6 cm/sec MVA(P1/2t): 4.4 cm2 6.4 mmHg 59.8 cm/sec MV E/A: 2.5 MV dec slope: FARSHAD(V,D): 1.1 cm2 598.3 cm/sec2 MV dec time: 0.15 sec MR max shelly: TV V2 max: PA V2 max: PI end-d shelly: 389.1 cm/sec 217.2 cm/sec 65.7 cm/sec 137.4 cm/sec MR max PG: TV max P.9 mmHg PA max P.6 mmHg 1.7 mmHg MV P1/2t-pr_phl: 50.5 msec Left Ventricle The left ventricle is severely dilated. There is normal left ventricular wall thickness. LV EF is 15%. Left ventricular systolic function is severely reduced. There is severe global hypokinesis of the left ventricle. Apical wall motion abnormality may reflect pacemaker activation. There is no thrombus. Probably No ASD,VSd ,or PFO. Right Ventricle The right ventricle is moderately dilated. Atria The right atrium is mildly dilated. The left atrium is mildly dilated. Mitral Valve There is no evidence of mitral valve prolapse. There is no vegetation seen on the mitral valve. There is no mitral valve stenosis. There is a moderate to severe amount of mitral regurgitation. Aortic Valve There is no aortic valve stenosis. There is no LVOT obstruction. No aortic regurgitation is present. Tricuspid Valve There is no tricuspid stenosis. There is a mild amount of tricuspid regurgitation. There is mild pulmonary hypertension by echo. RVSP is atleast 39 mm of Hg , with RA mean of > 20. Pulmonic Valve There is no pulmonic valvular stenosis. There is a mild amount of pulmonic regurgitation. Great Vessels The aortic root is normal size. The inferior vena cava appeared dilated and did not change with respiration (RAP > 20 mmHg). Effusions There is no pericardial effusion. : ERMELINDA^KARIE^^^MD > Karie Marx
--- NOTE | 2018-11-13 17:59 | OPERATIVE REPORT E ---
Operative Report NAME: ZAY KNIGHT : 1950 AGE: 68Y DATE OF SURGERY: 11/13/2018 ROOM: 328 PREOPERATIVE DIAGNOSES: 1. COPD EXACERBATION. 2. ACUTE CHOLECYSTITIS. 3. SEPSIS. POSTOPERATIVE DIAGNOSES: 1. COPD EXACERBATION. 2. ACUTE CHOLECYSTITIS. 3. SEPSIS. OPERATION: Central line placement. SURGEON: MIKE QUIROZ M.D. PROCEDURE IN DETAIL: The patient was seen in the intensive care unit and could not lie down flat secondary to her breathing difficulties and, therefore, we chose to place a right femoral line. The right groin was prepped and draped in the usual sterile fashion and after appropriate timeout and site verification 1% lidocaine with epinephrine was used to raise the skin wheal and the right groin crease. This was accomplished, the right femoral vein was cannulated with a 16 gauge needle catheter. The needle was removed and the catheter was slid into the femoral vein. Through the catheter we placed a J-wire using Seldinger technique and removed the catheter. We made a small skin franca with an 11 blade and a dilator was placed over the wire into the femoral vein, it was then removed. A triple-lumen catheter was then placed over the wire into the femoral vein, up into the inferior vena cava. After this we removed the wire, all 3 lines of the triple-lumen catheter flushed easily and withdrew easily. The catheter was then fixed in place in 2-0 Silk suture and a sterile dressing was applied, which completed the procedure. Estimated blood loss was less than 5 mL. A sterile dressing was applied, which completed the procedure. Estimated blood loss was 5 mL. DICTATING PHYSICIAN: MIKE QUIROZ M.D. [id number] PHY#: [id number] ID: [id number] JOB#: [id number] ACCT: [id number] cc:MIKE QUIROZ M.D. >
[2018-11-13] MEDS ORDERED: CEFEPIME 2 GM/D5W RTU 2 GM/50 ML RTUPB IV SCH (18:00)
[2018-11-13] MEDS ORDERED: CEFEPIME HCL 2 GM in DEXTROSE 5%-WATER 50 ML IV SCH (18:00)
--- NOTE | 2018-11-14 00:19 | OPERATIVE REPORT E ---
Operative Report NAME: ZAY KNIGHT : 1950 AGE: 68Y DATE OF SURGERY: 11/13/2018 ROOM: 612 PREOPERATIVE DIAGNOSES: 1. ACUTE RESPIRATORY FAILURE REQUIRING INVASIVE MECHANICAL VENTILATION. 2. SEVERE HYPOXEMIA. OPERATION: Endotracheal intubation. SURGEON: TIERNEY LEONARDO M.D. INDICATION: Patient requiring transfer to [facility] and intubation required to stabilize the patient before and during transfer. PROCEDURE IN DETAIL: The patient was given Versed at 1 mg IV push increment to a total dose of 10 mg. Hurricaine spray was applied on the oropharyngeal area. Endotracheal intubation was attempted the first, but it was a gastric intubation. The endotracheal tube was removed and the patient was Ambu bagged for about a minute or less, and oxygen saturation went up to 84 % lasting a few seconds. The patient was given the 5th mg dose and the 6th mg dose, and later up to 10th mg dose of Versed by RN. Endotracheal tube intubation was again attempted, able to visualize the vocal cord and the endotracheal tube size 8 was inserted. Endotracheal tube placement was confirmed by auscultation in both lungs and by capnometer changing color to yellow. The patient's oxygenation improved and the endotracheal tube was taped at the level of 22 and a chest x-ray was ordered subsequently. The patient remained stable and blood pressure remained stable at 120/80, there was no hypotension noted and the heart rate remained stable at 70s and 80 per minute. Saturation has been 100% on 50% FiO2 and the FiO2 was titrated down to 35% and saturation has remained 97-98%. A chest x-ray was done and the endotracheal tube was at good position and no pneumothorax noted. The patient is being prepared for transportation to [facility]. DICTATING PHYSICIAN: TIERNEY LEONARDO MD,LOUISE,MPH [id number] PHY#: [id number] ID: [id number] JOB#: [id number] ACCT: [id number] cc:TIERNEY LEONARDO M.D. > RENÉ
--- NOTE | 2018-11-14 12:59 | CONSULTATION REPORT E ---
Consultation Report NAME: ZAY KNIGHT : 1950 AGE: 68Y DATE: 11/13/2018 612 A TO: TIERNEY LEONARDO M.D. FROM: LINETTE FELIPE M.D. Requesting Physician HISTORY OF PRESENT ILLNESS: Patient is a 68-year-old female who was transferred to ICU because of acute shortness of breath. Patient's worsening dyspnea was noted on this admission and complained about abdominal pain. CT scan of the abdomen was suspicious for acute cholecystitis. Surgeon was consulted and patient was determined to be nonsurgical. Had a HIDA scan, which was normal. Consulted because of increased shortness of breath. Patient is expected to be transferred later this afternoon to [facility] for further evaluation and management, but she is required to have an endotracheal tube inserted to protect her airway and on a ventilator before and during transfer. There was no fever or chills. No increased cough or copious sputum production, no hemoptysis and no chest pain. PAST MEDICAL HISTORY: 1. Atrial fibrillation. 2. Congestive heart failure. 3. Hypertension. 4. COPD. 5. Gastroesophageal reflux disease. 6. Depression. PAST SURGICAL HISTORY: Pacemaker. SOCIAL HISTORY: Patient lives in a alf. Former smoker, 1 pack a day for 45 years. Last time smoked was July 2014. Drinks alcohol occasionally. Denies any illicit drug use. MEDICATIONS AT HOME: Include: 1. Tylenol. 2. Albuterol inhaler. 3. Aspirin. 4. Buspirone. 5. Gabapentin. 6. Ipratropium. 7. Metoprolol. 8. Multivitamin. 9. Sertraline. 10. Spironolactone. 11. Trelegy inhaler. ALLERGIES: CODEINE. REVIEW OF SYSTEMS: CONSTITUTIONAL: No fever or chills. No weight gain, no weight loss. EYES: No eye pain. EARS: No hearing changes or ear discharge. PHYSICAL EXAMINATION: GENERAL: Patient is awake and alert, oriented x3, in severe respiratory distress. VITAL SIGNS: Temperature of 97.2, with a T-max of 98. Heart rate is 109, blood pressure is 114/23, respiratory rate is 24. Patient is using accessory muscles. EYES: No jaundice or pallor. EARS, NOSE AND THROAT: No ear drainage. No nasal discharge. CHEST AND LUNGS: No wheezing, no rhonchi, no coarse crackles. CARDIOVASCULAR: S1, S2 distinct. Normal rate, regular rhythm. ABDOMEN: Flabby. Positive bowel sounds. Soft, nondistended. EXTREMITIES: No joint swelling or cellulitis. LABORATORY DATA: CBC done today showed white count of 13.1, hemoglobin is 17.7, hematocrit is 34.1, platelet count is 284,000. Blood gases are pH of 7.4, pCO2 is 33.4, pO2 of 74, the bicarb is 20.4. The saturation is 98.2. Reviewed the patient's CAT scan from September 08, 2018, showing *------* changes in both lungs and bibasilar infiltrates, suggestive of pneumonia. The abdominal CAT scan done on November 13 showed loculated pleural effusion on the right side, rib fractures on the right side and then with an infiltrate in the left lower lobe. Elevated liver enzymes, etiology to be determined. HIDA scan was negative for cholecystitis. Possible hepatitis or shock liver. ASSESSMENT: 1. Acute respiratory failure requiring invasive mechanical ventilation prior to transport. 2. Severe or end stage chronic obstructive pulmonary disease/emphysema, currently not in active bronchospasm. 3. Elevated liver enzymes, probably due to hepatitis or hypoperfusion/shock liver. 4. Severe congestive heart failure due to dilated cardiomyopathy, with very low ejection fraction. PLAN/RECOMMENDATIONS: 1. Will intubate the patient on mechanical ventilator and optimize ventilator support prior to transfer. 2. Continue Zosyn and GI prophylaxis and DVT prophylaxis. Will start patient on IV propofol or Versed for light sedation. DICTATING PHYSICIAN: TIERNEY LEONARDO MD,LOUISE,MPH [id number] PHY#: [id number] ID: [id number] JOB#: [id number] ACCT: [id number] cc:TIERNEY LEONARDO M.D. > RENÉ
== END 2018-11-13 15:15 | disposition short-term general hospital (02) | DRG 871 ==
LOC: ER 16:37 → EH 11-13 01:45 → 3S 11-13 04:15 → ICU 11-13 12:30
PROVIDERS: ADMIT Internal Medicine; ATTEND Internal Medicine
PROC: 5A1935Z Respiratory Ventilation, Less than 24 Consecutive Hours (ICD-10-PCS; principal; 2018-11-13)
PROC: 0BH17EZ Insertion of Endotracheal Airway into Trachea, Via Natural or Artificial Opening (ICD-10-PCS; 2018-11-13)
PROC: 06H033Z Insertion of Infusion Device into Inferior Vena Cava, Percutaneous Approach (ICD-10-PCS; 2018-11-13)
DX: A41.9 Sepsis, unspecified organism (principal); J18.9 Pneumonia, unspecified organism; J96.01 Acute respiratory failure with hypoxia; R65.21 Severe sepsis with septic shock; K80.12 Calculus of gallbladder with acute and chronic cholecystitis without obstruction; I42.9 Cardiomyopathy, unspecified; N17.9 Acute kidney failure, unspecified; E44.0 Moderate protein-calorie malnutrition; T82.111A Breakdown (mechanical) of cardiac pulse generator (battery), initial encounter; J43.9 Emphysema, unspecified; E78.5 Hyperlipidemia, unspecified; I48.91 Unspecified atrial fibrillation; I11.0 Hypertensive heart disease with heart failure; E87.5 Hyperkalemia; I50.9 Heart failure, unspecified; K21.9 Gastro-esophageal reflux disease without esophagitis; F32.9 Major depressive disorder, single episode, unspecified; Z87.891 Personal history of nicotine dependence; Z79.82 Long term (current) use of aspirin; Z79.51 Long term (current) use of inhaled steroids; Z79.899 Other long term (current) drug therapy
CPT/HCPCS: 36415; 71045; 74177; 76705; 80048; 80053; 82550; 82553; 82803; 83605; 83690; 84132; 84484; 85025; 85027; 87040; 87086; 93005; 93010; 93306; 93976; 94002; 94640; 96374; 96375; 99285; J0610; J0692; J1250; J1815; J2250; J2405; J2543; J2930; J3490; J7030; J7050; J7620; S0164